=== PATIENT | female | born 1935 | race Caucasian/White ===

== ENCOUNTER 2017-02-27 08:23 | Emergency (ER) | payer MEDICARE, BC ==
[2017-02-27 08:23] VITALS: PULSE 73; BMI 20.1
[2017-02-27 08:41] VITALS: BP 130/49; RESP 18; TEMP 98; O2SAT 100
--- NOTE | 2017-02-27 09:13 | ED PDOC ---
HPI: Back Time Seen by Provider: 02/27/17 08:25 Chief Complaint (Nursing): Back Pain Chief Complaint (Provider): Back pain History Per: Patient History/Exam Limitations: no limitations Onset/Duration Of Symptoms: Days (x3) Current Symptoms Are (Timing): Still Present Additional Complaint(s): Aarti Bardales is a 81 year old female, with a past medical history of CAD, COPD, CHF, rapid A-fib, home oxygen, and back pain, who presents to the emergency department via EMS complaining of lower back pain onset for 3 days. Patient denies falling and reports she strained her back after leaning to mixing picker tender something from the floor. She states she took a tylenol w/ codeine without relief but after taking that medications she developed a pruritic rash in her lower extremities PMD: Kiara Willingham Past Medical History Reviewed: Historical Data, Nursing Documentation, Vital Signs Vital Signs: Last Vital Signs Temp 98 F 02/27/17 08:35 Pulse 65 02/27/17 08:35 Resp 18 02/27/17 08:35 BP 130/49 L 02/27/17 08:35 Pulse Ox 100 02/27/17 08:35 - Medical History PMH: Anxiety, Asthma, Atrial Fibrillation, CAD, CHF, COPD, Depression, Emphysema , HTN, Pneumonia Denies: HIV, Chronic Kidney Disease - Surgical History Surgical History: No Surg Hx - Family History Family History: States: Unknown Family Hx - Social History Ex-Smoker (has not smoked in the last 12 months): Yes Alcohol: None Drugs: Denies - Immunization History Hx Tetanus Toxoid Vaccination: No Hx Influenza Vaccination: No Hx Pneumococcal Vaccination: No - Home Medications Home Medications: Ambulatory Orders Medication Instructions Recorded Bisoprolol [Zebeta] 2.5 mg PO DAILY #0 tab 05/15/14 Pantoprazole [Protonix EC Tab] 40 mg PO DAILY #0 ect 05/15/14 Aspirin [Aspirin EC] 81 mg PO SUMOTUWETHSA 06/02/14 Digoxin [Lanoxin] 0.125 mg PO MOFR 03/01/15 Furosemide [Lasix] 20 mg PO DAILY PRN 03/01/15 diltiaZEM CD [Cardizem CD] 120 mg PO HS 03/01/15 Acetaminophen [Tylenol 325mg tab] 650 mg PO Q6H PRN #50 tab 02/04/16 Cyclobenzaprine [Flexeril] 5 mg PO DAILY #30 tab 02/04/16 Lidocaine [Lidoderm] 1 ea TP DAILY #10 adh..patch 02/04/16 Rosuvastatin Calcium [Crestor] 1 tab PO DAILY 02/04/16 Ibuprofen [Motrin] 600 mg PO Q6H PRN #8 tab 02/27/17 - Allergies Allergies/Adverse Reactions: Allergies Allergy/AdvReac Type Severity Reaction Status Date / Time Penicillins Allergy WHEEZING Verified 02/04/16 11:16 Review of Systems ROS Statement: Except As Marked, All Systems Reviewed And Found Negative Musculoskeletal: Positive for: Back Pain (lower) Skin: Positive for: Rash (pruritic ) Physical Exam - Reviewed Nursing Documentation Reviewed: Yes Vital Signs Reviewed: Yes - Physical Exam Appears: Positive for: Well, Non-toxic, No Acute Distress Head Exam: Positive for: ATRAUMATIC, NORMAL INSPECTION, NORMOCEPHALIC Skin: Positive for: Normal Color, Warm, Rash (diffused but mostly to lower extremity cluster of erythematous non blanching areas. Possibly allergic given onset immediately after taken the Tylenol) Eye Exam: Positive for: EOMI, Normal appearance, PERRL ENT: Positive for: Normal ENT Inspection Neck: Positive for: Normal, Painless ROM, Supple Cardiovascular/Chest: Positive for: Regular Rate, Rhythm. Negative for: Murmur Respiratory: Positive for: Normal Breath Sounds. Negative for: Respiratory Distress Pulses-Dorsalis Pedis (L): 2+ Pulses-Dorsalis Pedis (R): 2+ Gastrointestinal/Abdominal: Positive for: Normal Exam, Bowel Sounds, Soft Back: Negative for: Normal Inspection (Lower back gluteal area tenderness), L CVA Tenderness, R CVA Tenderness, Vertebral Tenderness (No spinal tenderness), Decreased ROM, Muscle Spasm, Other (No hematoma no hip tenderness.) Extremity: Positive for: Normal ROM (Full ) Neurologic/Psych: Positive for: Alert, Oriented - Laboratory Results Result Diagrams: 02/27/17 09:16 02/27/17 09:16 - ECG O2 Sat by Pulse Oximetry: 100 (RA) Pulse Ox Interpretation: Normal Medical Decision Making Medical Decision Making: Initial Impression: Back pain likely muscular sciatica Initial Plan: --Lumbar spine w/o contrast [CT] --Comp Metabolic Panel --CBC w/ differential --reevaluation -will rule out fracture with CAT scan, however will hold tylenol w codeine due to possible allergic reaction. instead gave toradol 1200 -patient feels better and improved, spoke to radiologist and images show no fracture. Patient will be prescribed Motrin for pain and will be discharged home. Pt was advised to stop taking Tylenol with codeine. Follow up with Primary care physician and orthopedic after 2 days. pt agreeable, son agreeable Scribe Attestation: Documented by Kyle Steele, acting as a scribe for Malissa Chen MD Provider Scribe Attestation: All medical record entries made by the Scribe were at my direction and personally dictated by me. I have reviewed the chart and agree that the record accurately reflects my personal performance of the history, physical exam, medical decision making, and the department course for this patient. I have also personally directed, reviewed, and agree with the discharge instructions and disposition. Disposition - Clinical Impression Clinical Impression: Degenerative joint disease of low back - Patient ED Disposition Is Patient to be Admitted: No Counseled Patient/Family Regarding: Studies Performed, Diagnosis, Need For Followup - Disposition Referrals: [facility] [Outside] Lorrie Hartley MD [Staff Provider] - Disposition: Routine/Home Disposition Time: 10:35 Condition: IMPROVED Additional Instructions: follow up with your orthopedist in 1-2 days return to the ED with any worsening or concerning symptoms Prescriptions: Ibuprofen [Motrin] 600 mg PO Q6H PRN #8 tab PRN Reason: Pain, Moderate (4-7) Instructions: Degenerative Disc Disease (ED), Arthritis (ED) Forms: [employer] (Irish)
[2017-02-27 09:20] LABS: BASO # 0.1 K/uL (0.0-0.2); BASO % 0.7 % (0.0-2.0); EOS # 0.1 K/uL (0.0-0.7); EOS % 1.9 % (0.0-4.0); HEMATOCRIT 39.3 % (34.0-47.0); LYMPH # 0.8 K/uL (1.0-4.3); LYMPH % 11.9 % (20.0-40.0); MEAN CELL VOLUME 87.8 fl (81.0-99.0); MEAN CORPUSCULAR HEMOGLOBIN 29.7 pg (27.0-31.0); MEAN CORPUSCULAR HGB CONC 33.8 g/dL (33.0-37.0); MEAN PLATELET VOLUME 7.9 fl (7.2-11.7); MONO # 0.8 K/uL (0.0-0.8); NEUT # 5.1 K/uL (1.8-7.0); NEUT % 74.5 % (50.0-75.0); NRBC % 0.2 % (0.0-0.0); RED CELL DISTRIBUTION WIDTH 14.7 % (11.5-14.5); WHITE BLOOD COUNT 6.9 K/uL (4.8-10.8)
[2017-02-27 09:31] LABS: ALB/GLOB RATIO 1.8 (1.0-2.1); ALKALINE PHOSPHATASE 78 U/L (38-126); ALT/SGPT 30 U/L (9-52); AST/SGOT 29 U/L (14-36); BILIRUBIN,TOTAL 0.8 mg/dl (0.2-1.3); BLOOD UREA NITROGEN 24 mg/dl (7-17); CALCIUM 9.6 mg/dL (8.4-10.2); CARBON DIOXIDE 27 mmol/L (22-30); CHLORIDE 101 mmol/L (98-107); GFR AFRICAN-AMERICAN > 60; GLUCOSE,RANDOM 90 mg/dL (65-105); POTASSIUM 4.4 MMOL/L (3.6-5.0); SODIUM 140 mmol/l (132-148); TOTAL PROTEIN 6.8 G/DL (6.3-8.2)
[2017-02-27 13:00] VITALS: PULSE 70
--- NOTE | 2017-03-01 10:27 | CT ---
PROCEDURE: CT Lumbar Spine without contrast HISTORY: Low-back pain COMPARISON: None. TECHNIQUE: Axial computed tomography images were obtained of the lumbar spine without the use of intravenous con trast. Coronal and sagittal reformatted images were created and reviewed. Radiation dose: Total exam DLP = 327 mGy-cm. This CT exam was performed using one or more of the following dose reduction techniques: Automated ex posure control, adjustment of the mA and/or kV according to patient size, and/or use of iterative rec onstruction technique. FINDINGS: VERTEBRAE: Normal lumbar curvature is appreciated there is no spondylolisthesis identified. Diffuse osteopenia suggests osteoporosis. Mild multilevel lumbar spondylosis appears diffuse. No suspicious lytic or angela stic change. Atherosclerotic abdominal aortic changes are identified. DISCS/SPINAL CANAL/NEURAL FORAMINA: L1-2: A minimal disc bulge is identified without significant stenosis resulting. L2-3: There is a mild generalized disc bulge combining with facet joint arthropathy resulting in l ateral recess delete stenosis symmetrically with remainder of the central canal widely patent. Border line bilateral neural foraminal stenosis is appreciated symmetrically. L3-4: A generalized disc osteophyte complex is [id number] in size but combines with facet ar thropathy to cause mild central canal stenosis and mild bilateral neural foraminal stenoses. L4-5: An additional generalized disc osteophyte complex is appreciated combining with facet arthro ellen to cause [id number] central canal stenosis and mild bilateral neural foraminal stenoses. L5-S1: Generalized disc bulging is appreciate without significant stenosis resulting. Facet arthrop athy appears moderate, symmetric. PARASPINAL SOFT TISSUES: Abdominal aorta atherosclerosis as above. OTHER FINDINGS: None. IMPRESSION: Multilevel degenerate disease appreciate as well as facet arthropathy resulting in central canal sten oses at multiple levels, but seen worst at L4-5 with the central canal is mild to moderately stenosed . No gross disc herniation. MRI is more sensitive in evaluation the intervertebral discs and can be performed if clinically warra nted. Multilevel limited neural foraminal stenoses are identified on a degenerative basis bilaterally .
== END 2017-02-27 12:54 | disposition home or self-care (01) ==
LOC: H.ER 08:23
DX: M51.36 Other intervertebral disc degeneration, lumbar region (principal); M48.06 Spinal stenosis, lumbar region; Z87.891 Personal history of nicotine dependence; Z86.59 Personal history of other mental and behavioral disorders
CPT/HCPCS: 96374; 99283; J1885

== ENCOUNTER 2017-02-28 15:16 | Inpatient (IN) | payer MEDICARE, BC ==
[2017-02-28 15:16] VITALS: BMI 20.1
--- NOTE | 2017-02-28 17:05 | ED PDOC ---
Lower Extremity Pain/Injury Time Seen by Provider: 02/28/17 15:59 Chief Complaint (Nursing): Lower Extremity Problem/Injury Chief Complaint (Provider): rash History Per: Patient Additional Complaint(s): 81-year-old female presents to emergency department for evaluation of rash to right leg that she first noticed 2 days ago. Patient was seen by her primary doctor and sent to ER for further evaluation. Patient denies any known fever or chills. She was seen in ED yesterday for lower back pain and noticed a mild rash to right leg that worsened from yesterday to today. When she followed up with her primary doctor today he advised that she come to ED for further evaluation. PMD: Dr. Willingham Past Medical History Reviewed: Historical Data, Nursing Documentation, Vital Signs Vital Signs: Last Vital Signs Temp 97.6 F 02/28/17 15:24 Pulse 68 02/28/17 15:24 Resp 18 02/28/17 15:24 BP 126/66 02/28/17 15:24 Pulse Ox 96 02/28/17 15:24 - Medical History PMH: Anxiety, Asthma, Atrial Fibrillation, CAD, CHF, COPD, Depression, Emphysema , HTN - Family History Family History: States: No Known Family Hx - Living Arrangements Living Arrangements: With Family - Social History Current smoker - smoking cessation education provided: No Ex-Smoker (has not smoked in the last 12 months): Yes (quit 2 years ago) Alcohol: None Drugs: Denies - Home Medications Home Medications: Ambulatory Orders Medication Instructions Recorded ALPRAZolam [Xanax] 0.25 mg PO DAILY PRN 02/28/17 Aspirin [Ecotrin] 81 mg PO DAILY 02/28/17 Bisoprolol [Zebeta] 2.5 mg PO DAILY 02/28/17 Digoxin [Lanoxin] 0.125 mg PO DAILY 02/28/17 Diltiazem HCl [Diltiazem 24Hr ER] 120 mg PO HS 02/28/17 Pantoprazole Sodium [Protonix] 40 mg PO DAILY 02/28/17 Simvastatin [Zocor] 20 mg PO HS 02/28/17 - Allergies Allergies/Adverse Reactions: Allergies Allergy/AdvReac Type Severity Reaction Status Date / Time Penicillins Allergy WHEEZING Verified 02/04/16 11:16 Wells Criteria for PE - Wells Criteria for Pulmonary Embolism Clinical Signs and Symptoms of DVT: No P.E is #1 Diagnosis, or Equally Likely: No Heart Rate >100: No Immobilization at least 3 days;Surgery previous 4 weeks: No Previous, objectively diagnosed PE or DVT: No Hemoptysis: No Malignancy w/treatment within 6 months, or palliative: No Total Score: 0 Review of Systems ROS Statement: Except As Marked, All Systems Reviewed And Found Negative Constitutional: Negative for: Fever, Chills Cardiovascular: Negative for: Chest Pain Respiratory: Negative for: Cough Gastrointestinal: Negative for: Nausea, Vomiting Skin: Positive for: Rash Neurological: Negative for: Headache, Dizziness Physical Exam - Reviewed Nursing Documentation Reviewed: Yes Vital Signs Reviewed: Yes - Physical Exam Appears: Positive for: Well, Non-toxic, No Acute Distress Skin: Positive for: Rash (Erythematous vesicular rash noted diffusely to the right thigh region both anteriorly and posteriorly, appearance consistent with multi-dermatomal herpes zoster) Eye Exam: Positive for: Normal appearance, EOMI, PERRL Cardiovascular/Chest: Positive for: Regular Rate, Rhythm Respiratory: Positive for: Normal Breath Sounds. Negative for: Respiratory Distress Back: Positive for: Normal Inspection Extremity: Negative for: Pedal Edema Neurologic/Psych: Positive for: Alert, Oriented - Laboratory Results Result Diagrams: 02/28/17 17:45 02/28/17 17:45 - ECG Interpretation Of ECG: A fib 60 bpm, no interval change, reviewed by PA and ED attending O2 Sat by Pulse Oximetry: 96 Pulse Ox Interpretation: Normal - Other Rad Bedside chest X-Ray: Read By Radiologist X-Ray Interpretation: COPD, no infiltrate Medical Decision Making Medical Decision Making: Impression: Multi dermatomal herpes zoster Plan: CBC CMP IVF CXR EKG Case was d/w PMD Dr. Willingham, he states to admit patient and start IV acyclovir. Initial dose ordered. Patient aware of admission and agrees. IV toradol also given for pain. Disposition - Clinical Impression Clinical Impression: Herpes zoster complicated - Patient ED Disposition Is Patient to be Admitted: Yes - Disposition Disposition Time: 13:52 Condition: FAIR - Pt Status Changed To: Hospital Disposition Of: Inpatient - Admit Certification Admit to Inpatient:: After my assessment, the patient will require hospitalization for at least two midnights. This is because of the severity of symptoms shown, intensity of services needed, and/or the medical risk in this patient being treated as an outpatient. - POA Present On Arrival: None Results - Lab Results Lab Results: 02/28/17 02/28/17 02/28/17 18:50 17:45 17:45 WBC 5.9 RBC 4.65 Hgb 13.7 Hct 40.9 MCV 88.1 MCH 29.5 MCHC 33.5 RDW 14.8 H Plt Count 222 MPV 7.9 Neut % (Auto) 70.3 Lymph % (Auto) 15.3 L [place] % (Auto) 11.1 H Eos % (Auto) 2.6 Baso % (Auto) 0.7 Neut # 4.1 Lymph # 0.9 L [place] # 0.6 Eos # 0.2 Baso # 0.0 Sodium 140 Potassium 4.3 Chloride 99 Carbon Dioxide 31 H Anion Gap 14 BUN 29 H Creatinine 1.1 Est GFR ( Amer) 58 Est GFR (Non-Af Amer) 48 Random Glucose 86 Calcium 9.8 Total Bilirubin 1.0 AST 35 ALT 33 Alkaline Phosphatase 79 Total Protein 7.2 Albumin 4.6 Globulin 2.6 Albumin/Globulin Ratio 1.7 Urine Color Yellow Urine Clarity Clear Urine pH 5.0 Ur Specific [place] 1.023 Urine Protein Negative Urine Glucose (UA) Neg Urine Ketones Negative Urine Blood Negative Urine Nitrate Negative Urine Bilirubin Negative Urine Urobilinogen 0.2-1.0 Ur Leukocyte Esterase Neg Urine RBC (Auto) 3 Urine Microscopic WBC 1 Ur Squamous Epith Cells 1 Urine Bacteria Rare
[2017-02-28] MEDS ORDERED: ACYCLOVIR IVPB STA (17:47)
[2017-02-28] MEDS ORDERED: SODIUM CHLORIDE 0.9% IVPB STA (17:47)
[2017-02-28 18:05] LABS: BASO % 0.7 % (0.0-2.0); EOS # 0.2 K/uL (0.0-0.7); EOS % 2.6 % (0.0-4.0); HEMATOCRIT 40.9 % (34.0-47.0); LYMPH # 0.9 K/uL (1.0-4.3); LYMPH % 15.3 % (20.0-40.0); MEAN CELL VOLUME 88.1 fl (81.0-99.0); MEAN CORPUSCULAR HEMOGLOBIN 29.5 pg (27.0-31.0); MEAN CORPUSCULAR HGB CONC 33.5 g/dL (33.0-37.0); MEAN PLATELET VOLUME 7.9 fl (7.2-11.7); MONO # 0.6 K/uL (0.0-0.8); MONO % 11.1 % (0.0-10.0); NEUT # 4.1 K/uL (1.8-7.0); NEUT % 70.3 % (50.0-75.0); NRBC % 0.3 % (0.0-0.0); RED CELL DISTRIBUTION WIDTH 14.8 % (11.5-14.5); WHITE BLOOD COUNT 5.9 K/uL (4.8-10.8)
[2017-02-28 18:16] LABS: ALB/GLOB RATIO 1.7 (1.0-2.1); CALCIUM 9.8 mg/dL (8.4-10.2); POTASSIUM 4.3 MMOL/L (3.6-5.0); TOTAL PROTEIN 7.2 G/DL (6.3-8.2)
[2017-02-28 19:07] LABS: RBC URINE 3 /hpf (0-3); URINE BACTERIA RARE (<OCC); URINE BILIRUBIN NEGATIVE (NEGATIVE); URINE BLOOD NEGATIVE (NEGATIVE); URINE COLOR YELLOW (YELLOW); URINE GLUCOSE (UA) NEG (Normal); URINE KETONE NEGATIVE (NEGATIVE); URINE LEUKOCYTE ESTERASE NEG Leu/uL (Negative); URINE PROTEIN NEGATIVE (NEGATIVE); URINE UROBILINOGEN 0.2-1.0 mg/dL (0.2-1.0); WBC URINE 1 /hpf (0-5)
[2017-03-01] MEDS: diltiaZEM 120 mg/24 Hours CD Cap PO SCH ×2 (00:05→21:15)
[2017-03-01] MEDS ORDERED: Acyclovir 500 MG in Sodium Chloride 0.9% 100 ML IVPB SCH (01:00)
[2017-03-01] MEDS: Acyclovir 500 MG in Sodium Chloride 0.9% 100 ML IVPB SCH ×3 (01:33→20:34)
[2017-03-01] MEDS: Oxycodone/Acetaminophen 5/325 mg Tab PO PRN ×3 (02:34→20:29)
--- NOTE | 2017-03-01 08:49 | RAD ---
HISTORY: clearance COMPARISON: 10/15/2015. FINDINGS: LUNGS: The lungs are hyperinflated and there is peribronchial thickening with chronic changes in both lungs. There is biapical pleural thickening. There is bibasilar scarring. PLEURA: No significant pleural effusion identified, no pneumothorax apparent. CARDIOVASCULAR: There is persistent mild cardiomegaly. Atherosclerotic aortic arch calcifications are present. OSSEOUS STRUCTURES: No significant abnormalities. VISUALIZED UPPER ABDOMEN: Normal. OTHER FINDINGS: None. IMPRESSION: No active pulmonary disease. COPD.
[2017-03-01] MEDS: Pantoprazole 40 mg EC Tab PO SCH (09:09)
--- NOTE | 2017-03-01 19:52 | CP.PCM.CON ---
History of Present Illness - History of Present Illness History of Present Illness: Infectious Dissease Consultation Note- asked to see this patient at the request of for varicella zoster. HPI- Patient is a 81 year old female with pmh of CAD, CHF, COPD, HTN, asthma who was admitted for c/o right hip and lower back and leg pain and rash . Pt. states originally she came to Ed 2 days ago for hip pain and at that time she had small rash like lesion on her right upper thigh region and she was d/c home. She states the next day the rash got much worse and race board attendant to the groin and all the way to almost above her knee and right buttock and was very painful and hence she came back to ED and was admitted for shingles. She denies ever having had shingles before. She also explains that she never received the zostavax. She denies any sick contacts , however , explains the day prior to her symptom she was at her backyard trying to get a old tree from the ground and kind of slipped but she states she was wearing pants and her leg never came into contact directly with any bushes or leaves . denies any fever or chills but states the lesions are very itchy and painful. PMH: Anxiety, Asthma, Atrial Fibrillation, CAD, CHF, COPD, Depression, Emphysema , HTN Review of Systems - Review of Systems Review of Systems: ROS- denies any fever or chills, denies any [place], denies any cough, denies any N/V, denies any ad. pain, denies any cough, chronic dyspnes, denies any chest pain, denies any dysurea, denies any diarrhea. 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 - RENAL Hx Chronic Kidney Disease: No - ENDOCRINE/METABOLIC Hx Endocrine Disorders: No - HEMATOLOGICAL/ONCOLOGICAL Hx Blood Disorders: No - INTEGUMENTARY Hx Dermatological Problems: Yes (shingles) - MUSCULOSKELETAL/RHEUMATOLOGICAL Hx Musculoskeletal Disorders: No Hx Falls: No - GASTROINTESTINAL Hx Gastrointestinal Disorders: No - GENITOURINARY/GYNECOLOGICAL Hx Genitourinary Disorders: No - PSYCHIATRIC Hx Anxiety: Yes Hx Depression: Yes - SURGICAL HISTORY Hx Surgeries: Yes Hx Hysterectomy: Yes - ANESTHESIA Hx Anesthesia: Yes Hx Anesthesia Reactions: No Hx Malignant Hyperthermia: No Meds Allergies/Adverse Reactions: Allergies Allergy/AdvReac Type Severity Reaction Status Date / Time Penicillins Allergy WHEEZING Verified 02/04/16 11:16 - Medications Medications: Current Medications Alprazolam (Xanax) 0.25 mg PO DAILY PRN PRN Reason: Anxiety Stop: 03/07/17 21:50 Last Admin: 03/01/17 14:36 Dose: 0.25 mg Aspirin (Ecotrin) 81 mg PO DAILY [facility] Last Admin: 03/01/17 09:10 Dose: 81 mg Atorvastatin Calcium (Lipitor) 10 mg PO [facility] Last Admin: 03/01/17 00:05 Dose: Not Given Bisoprolol Fumarate (Zebeta) 2.5 mg PO DAILY [facility] Last Admin: 03/01/17 09:08 Dose: 2.5 mg Digoxin (Lanoxin) 0.125 mg PO [facility] Diltiazem HCl (Cardizem Cd) 120 mg PO [facility] Last Admin: 03/01/17 00:05 Dose: Not Given Heparin Sodium (Porcine) (Heparin) 5,000 units SC Q12 [facility] PRN Reason: Protocol Acyclovir 500 mg/ Sodium (Chloride) 100 mls @ 100 mls/hr IVPB Q12 [facility] Last Admin: 03/01/17 09:17 Dose: 100 mls/hr Oxycodone/Acetaminophen (Percocet 5/325 Mg Tab) 1 tab PO Q4 PRN PRN Reason: Pain, moderate (4-7) Stop: 03/03/17 21:50 Last Admin: 03/01/17 14:36 Dose: 1 tab Pantoprazole Sodium (Protonix Ec Tab) 40 mg PO DAILY [facility] Last Admin: 03/01/17 09:09 Dose: 40 mg Physical Exam - Constitutional Appears: No Acute Distress - Head Exam Head Exam: ATRAUMATIC - Eye Exam Eye Exam: EOMI, PERRL - ENT Exam ENT Exam: Normal Oropharynx - Neck Exam Neck exam: Positive for: Full Rom - Respiratory Exam Respiratory Exam: NORMAL BREATHING PATTERN Additional comments: scattered exp wheeze no crackles - Cardiovascular Exam Cardiovascular Exam: RRR, +S1, +S2 - GI/Abdominal Exam GI & Abdominal Exam: Normal Bowel Sounds, Soft Additional comments: NT, ND - Neurological Exam Neurological exam: Alert, Oriented x3 - Skin Additional comments: vesicular rash along right upper lateral and inner thigh and extending to right hip extensive and the inner thigh region vesicular lesions with few areas of ? superimposed infection No discharge Results - Vital Signs Recent Vital Signs: Last Vital Signs Temp 97.5 F L 03/01/17 16:18 Pulse 60 03/01/17 16:18 Resp 21 03/01/17 16:18 BP 120/76 03/01/17 16:18 Pulse Ox 97 03/01/17 16:18 - Labs Result Diagrams: 03/02/17 05:45 03/02/17 05:45 Labs: Laboratory Results - last 72 hr 02/28/17 02/28/17 02/28/17 17:45 17:45 18:50 WBC 5.9 RBC 4.65 Hgb 13.7 Hct 40.9 MCV 88.1 MCH 29.5 MCHC 33.5 RDW 14.8 H Plt Count 222 MPV 7.9 Neut % (Auto) 70.3 Lymph % (Auto) 15.3 L [place] % (Auto) 11.1 H Eos % (Auto) 2.6 Baso % (Auto) 0.7 Neut # 4.1 Lymph # 0.9 L [place] # 0.6 Eos # 0.2 Baso # 0.0 Sodium 140 Potassium 4.3 Chloride 99 Carbon Dioxide 31 H Anion Gap 14 BUN 29 H Creatinine 1.1 Est GFR ( Amer) 58 Est GFR (Non-Af Amer) 48 Random Glucose 86 Calcium 9.8 Total Bilirubin 1.0 AST 35 ALT 33 Alkaline Phosphatase 79 Total Protein 7.2 Albumin 4.6 Globulin 2.6 Albumin/Globulin Ratio 1.7 Urine Color Yellow Urine Clarity Clear Urine pH 5.0 Ur Specific [place] 1.023 Urine Protein Negative Urine Glucose (UA) Neg Urine Ketones Negative Urine Blood Negative Urine Nitrate Negative Urine Bilirubin Negative Urine Urobilinogen 0.2-1.0 Ur Leukocyte Esterase Neg Urine RBC (Auto) 3 Urine Microscopic WBC 1 Ur Squamous Epith Cells 1 Urine Bacteria Rare 03/02/17 03/02/17 05:45 05:45 WBC 4.3 L RBC 4.29 Hgb 12.5 Hct 37.8 MCV 88.0 MCH 29.2 MCHC 33.1 RDW 14.8 H Plt Count 187 MPV Neut % (Auto) Lymph % (Auto) [place] % (Auto) Eos % (Auto) Baso % (Auto) Neut # Lymph # [place] # Eos # Baso # Sodium 139 Potassium 4.9 Chloride 101 Carbon Dioxide 32 H Anion Gap 11 BUN 25 H Creatinine 1.1 Est GFR ( Amer) 58 Est GFR (Non-Af Amer) 48 Random Glucose 98 Calcium 9.2 Total Bilirubin AST ALT Alkaline Phosphatase Total Protein Albumin Globulin Albumin/Globulin Ratio Urine Color Urine Clarity Urine pH Ur Specific [place] Urine Protein Urine Glucose (UA) Urine Ketones Urine Blood Urine Nitrate Urine Bilirubin Urine Urobilinogen Ur Leukocyte Esterase Urine RBC (Auto) Urine Microscopic WBC Ur Squamous Epith Cells Urine Bacteria Microbiology 02/28/17 18:50 Urine,Clean Catch Urine Culture - Preliminary Gram Positive Cocci Assessment & Plan (1) Herpes zoster complicated Status: Acute - Assessment and Plan (Free Text) Assessment: A/P- 81 year old female with CAD, HTN, COPD admitted with extensive right side leg and hip zoster. afebrile normal wbc count ? areas of superimposed bacterial infection on few of the vesicular lesions. plan- advise to continue with IV acyclovir that was initiated by primary doctor for another 1-2 days. can be switched to oral acyclovir after that. advise also to start Iv vancomycin for 1-2 days. Pt. advised to avoid putting any ointment on the lesions. Airborne isolation for now. Pt. verbalizes full understanding of all above and agrees with above plan of care. Thank you for allowing me to take part in the care of this patient
--- NOTE | 2017-03-02 00:09 | CARD ---
APPROVED REPORT EKG Measurement Heart [id number] <Conclusion> Atrial fibrillation Nonspecific ST abnormality Abnormal ECG
[2017-03-02] MEDS: Oxycodone/Acetaminophen 5/325 mg Tab PO PRN ×3 (02:19→18:42)
[2017-03-02 06:19] LABS: HEMATOCRIT 37.8 % (34.0-47.0); MEAN CORPUSCULAR HEMOGLOBIN 29.2 pg (27.0-31.0); MEAN CORPUSCULAR HGB CONC 33.1 g/dL (33.0-37.0); RED CELL DISTRIBUTION WIDTH 14.8 % (11.5-14.5); WHITE BLOOD COUNT 4.3 K/uL (4.8-10.8)
[2017-03-02 06:46] LABS: CALCIUM 9.2 mg/dL (8.4-10.2); POTASSIUM 4.9 MMOL/L (3.6-5.0)
[2017-03-02] MEDS: Digoxin 125 mcg (0.125 mg) Tab PO SCH (09:01)
[2017-03-02] MEDS: Pantoprazole 40 mg EC Tab PO SCH (09:01)
[2017-03-02] MEDS: Acyclovir 500 MG in Sodium Chloride 0.9% 100 ML IVPB SCH ×2 (09:02→21:17)
--- NOTE | 2017-03-02 09:25 | HP ---
HISTORY OF PRESENT ILLNESS: Patient is an 81-year-old female with history of multiple medical problems including chronic obstructive pulmonary disease, hypertension, paroxysmal atrial fibrillation, presented and admitted with multidermatomal herpes zoster. Patient has been complaining of pain in the lower back that radiates to the right lower extremity. Patient visited the emergency room on the day prior to the admission and she was given pain medication. Patient denied to have similar rashes or symptoms suggestive of herpes zoster before. Due to multidermatomal herpes zoster and the patient is elderly, the patient was admitted for intravenous treatment. ALLERGIES: Patient has allergies to PENICILLIN. PAST MEDICAL HISTORY: COPD, hypertension, coronary artery disease. SOCIAL HISTORY: Positive for ex-smoker, no ETOH or substance abuse. FAMILY HISTORY: Noncontributory. PHYSICAL EXAMINATION GENERAL: Patient is found in bed, comfortable, not in any cardiopulmonary distress. VITAL SIGNS: Blood pressure 120/76, temperature 97.5, respiratory rate 20, pulse 60. HEENT: Pupils equal, reactive to light. Normal appearing mucosa of the conjunctivae, oropharynx, and nasal membrane mucosa. NECK: Supple. No JVD. No carotid bruit. No lymph node. No thyromegaly. CHEST AND LUNGS: Bilateral symmetrical expansion. Good air exchange. No rales. No rhonchi. CARDIOVASCULAR: PMI not localized. S1 and S2. No additional sounds. ABDOMEN: Normoactive bowel sounds. No tenderness. No organomegaly. No masses. EXTREMITIES: No cyanosis, no clubbing, no edema. CENTRAL NERVOUS SYSTEM: Alert, awake, and oriented x3. No neurological deficits could be appreciated. SKIN: Patient has multiple vesicular lesions on an erythematous base on the right lower extremity, both upper and lower. ASSESSMENT: 1. Multidermatomal herpes zoster in an 81-year-old female. 2. History of chronic obstructive pulmonary disease. 3. Coronary artery disease. 4. Paroxysmal atrial fibrillation. PLAN: Infectious disease consultation and follow the recommendations. Resume patient's home medications. Continue acyclovir 500 mg q.8 hours. Roxy MD Maulik
[2017-03-02] MEDS ORDERED: Albuterol-Ipratrop 3 mg / 0.5 (3 ml) UD INH STA (09:26)
--- NOTE | 2017-03-02 12:56 | PQF GENQUE ---
This form is a permanent part of the medical record 03/02/17 Dr. Willingham, ER has documented the following information ( History of CHF ) with no mention of this diagnosis in your documentation. Please indicate if you concur with a history of CHF or provide clarification that this diagnosis is not a current condition. If CHF is ruled in please clarify the type and acuity . Clarification of your documentation is requested to better reflect the severity of illness and intensity of treatment of your patient. PHYSICIAN'S RESPONSE [] CHF ruled out [] Acute on chronic CHF [] systolic [] diastolic [] combined [] Chronic CHF [] systolic [] diastolic [] combined [] Other explanation please specify [] Unable to determine Based on your medical judgment of the clinical indicators outlined above please clarify the following: [] Practitioner response [] If unable to determine, please check the box, sign and date. Present On Admission (POA) Indicator: [] Present at the time of admission [] Not present at the time of admission [] Clinically Undetermined In responding to this query, please exercise your independent professional judgment. The fact that a question is asked does not imply that any particular answer is desired or expected. Thank you for your clarification on this documentation. If you have any questions please call:[phone] * Thank you, Priscilla West RN CDMP No, she does not have CHF MTDD
[2017-03-02] MEDS: Albuterol-Ipratrop 3 mg / 0.5 (3 ml) UD INH PRN (19:59)
[2017-03-02] MEDS: diltiaZEM 120 mg/24 Hours CD Cap PO SCH (21:19)
[2017-03-03 07:50] LABS: HEMATOCRIT 38.3 % (34.0-47.0); MEAN CELL VOLUME 87.4 fl (81.0-99.0); MEAN CORPUSCULAR HEMOGLOBIN 29.3 pg (27.0-31.0); MEAN CORPUSCULAR HGB CONC 33.5 g/dL (33.0-37.0); RED CELL DISTRIBUTION WIDTH 15.2 % (11.5-14.5)
[2017-03-03 08:02] LABS: BLOOD UREA NITROGEN 18 mg/dl (7-17); CALCIUM 9.3 mg/dL (8.4-10.2); CARBON DIOXIDE 31 mmol/L (22-30); CHLORIDE 98 mmol/L (98-107); GFR AFRICAN-AMERICAN > 60; GLUCOSE,RANDOM 85 mg/dL (65-105); POTASSIUM 4.4 MMOL/L (3.6-5.0); SODIUM 138 mmol/l (132-148)
[2017-03-03] MEDS: Oxycodone/Acetaminophen 5/325 mg Tab PO PRN ×2 (08:51→19:28)
[2017-03-03] MEDS: Pantoprazole 40 mg EC Tab PO SCH (09:06)
[2017-03-03] MEDS: Acyclovir 500 MG in Sodium Chloride 0.9% 100 ML IVPB SCH ×2 (09:08→21:23)
--- NOTE | 2017-03-03 17:01 | CARD ---
APPROVED REPORT EXAM: Two-dimensional and M-mode echocardiogram with Doppler and color Doppler. Other Information Quality : GoodRhythm : Atrial Fibrillation INDICATION Congestive Heart Failure 2D DIMENSIONS IVSd1.24 (0.7-1.1cm)LVDd3.48 (3.9-5.9cm) LVOT Diameter1.96 (1.8-2.4cm)PWd1.49 (0.7-1.1cm) IVSs1.42 (0.8-1.2cm)LVDs2.31 (2.5-4.0cm) FS (%) 33.6 %PWs1.99 (0.8-1.2cm) LVEF (%)55.0 (>50%) M-Mode DIMENSIONS Left Atrium (MM)5.47 (2.5-4.0cm)IVSd1.25 (0.7-1.1cm) Aortic Root2.75 (2.2-3.7cm)LVDd3.59 (4.0-5.6cm) Aortic Cusp Exc.1.75 (1.5-2.0cm)PWd1.75 (0.7-1.1cm) IVSs1.69 cmFS (%) 46 % LVDs1.94 (2.0-3.8cm)PWs2.06 cm Mitral Valve E/A ratio0.0 TDI E/Lateral E'0.0E/Medial E'0.0 Pulmonary Valve PV Peak Vatjikce30.6cm/s Tricuspid Valve TR Peak [id number]/sRAP [id number] Peak Gr.35mmHg [id number] LEFT VENTRICLE The left ventricle is normal size. Proximal septal thickening is noted. The left ventricular function is normal. The left ventricular ejection fraction is within the normal range. There is normal LV segmental wall motion. A Fib RIGHT VENTRICLE The right ventricle is mildly dilated. There is normal right ventricular wall thickness. The right ventricular systolic function is normal. ATRIA The left atrium is moderately dilated. The right atrium is moderately dilated. AORTIC VALVE The aortic valve is not well visualized. No aortic regurgitation is present. There is no aortic valvular stenosis. MITRAL VALVE The mitral valve is moderately thickened. There is no mitral valve stenosis. Mitral regurgitation is moderate to severe. TRICUSPID VALVE The tricuspid valve is normal in structure There is moderate tricuspid regurgitation. There is mild to moderate pulmonary hypertension. PULMONIC VALVE The pulmonary valve is normal in structure and function. There is no pulmonic valvular regurgitation. GREAT VESSELS The aortic root is normal in size. The IVC is normal in size and collapses >50% with inspiration. PERICARDIAL EFFUSION The pericardium appears normal. <Conclusion> The left ventricle is normal size. Proximal septal thickening is noted. The left ventricular function is normal. The left ventricular ejection fraction is within the normal range. There is normal LV segmental wall motion. Mitral regurgitation is moderate to severe. There is moderate tricuspid regurgitation. There is mild to moderate pulmonary hypertension.
[2017-03-03] MEDS: diltiaZEM 120 mg/24 Hours CD Cap PO SCH (21:20)
--- NOTE | 2017-03-04 01:33 | PN ---
DAILY PROGRESS NOTE DATE: 03/03/2017 SUBJECTIVE: The patient is seen today. She still has pain of the right lower extremity and the patient is on both acyclovir and vancomycin. PHYSICAL EXAMINATION: VITAL SIGNS: Blood pressure 123/76, temperature 98, respiratory rate 18, and pulse 60. HEENT: Pupils equal, reactive to light. Normal-appearing mucosa of the conjunctiva, oropharynx, and nasal membrane mucosa. NECK: Supple. No JVD. No carotid bruit. No lymph node. No thyromegaly. CHEST AND LUNGS: Bilateral symmetrical expansion. Good air exchange. No rales. No rhonchi. CARDIOVASCULAR: PMI not localized. S1 and S2. No additional sounds. ABDOMEN: Normoactive bowel sounds. No tenderness. No organomegaly. No masses. EXTREMITIES: No cyanosis, no clubbing, no edema. CENTRAL NERVOUS SYSTEM: Alert, awake, and oriented x2. No neurological deficits could be appreciated. SKIN: The patient has multidermatomal eczematous maculopapular and vesicular lesions on the gluteal and right upper thigh down to the knee. ASSESSMENT: 1. Multidermatomal herpes zoster, still has active vesicular lesions. 2. Hypertension. 3. Chronic obstructive pulmonary disease. PLAN: Continue current IV acyclovir and vancomycin prophylactically and follow recommendations of IV and continue current isolation. Kiara Willingham MD
[2017-03-04] MEDS ORDERED: Oxycodone/Acetaminophen 5/325 mg Tab PO PRN (01:44)
--- NOTE | 2017-03-04 04:51 | PN ---
DATE: 03/02/2017 SUBJECTIVE: The patient was seen on 03/02/2017. She still has pain along the right lower extremity with rashes and vesicles. PHYSICAL EXAMINATION VITAL SIGNS: Blood pressure was 129/56, temperature 98.7, respiratory rate 20, and pulse 61. HEENT: Pupils equal, reactive to light. Normal-appearing mucosa of the conjunctivae, oropharyngeal and nasal mucosa. NECK: Supple. No JVD. No carotid bruit. No lymph node. No thyromegaly. CHEST AND LUNGS: Bilateral symmetrica expansion. Good air exchange. No rales. No rhonchi. CARDIOVASCULAR: PMI not localized. S1, S2. No additional sounds. ABDOMEN: Normoactive bowel sounds. No tenderness. No organomegaly. No masses. EXTREMITIES: No cyanosis, no clubbing, no edema. CENTRAL NERVOUS SYSTEM: Alert, awake, oriented x2. No neurological deficit could be appreciated. SKIN: The patient has multidermatomal erythema with maculopapular and vesicular lesions across the right lower buttock and right lower gluteal and right upper thigh down to the knee. ASSESSMENT: 1. Multidermatomal herpes zoster. 2. Hypertension. 3. Chronic obstructive pulmonary disease. 4. History of coronary artery disease. PLAN: Continue acyclovir and vancomycin. Follow recommendations of infectious disease store consultant. Continue isolation as the patient still has active vesicular lesions. Kiara Willingham MD
[2017-03-04] MEDS: Pantoprazole 40 mg EC Tab PO SCH (08:26)
[2017-03-04] MEDS: Acyclovir 500 MG in Sodium Chloride 0.9% 100 ML IVPB SCH ×2 (08:42→20:18)
[2017-03-04] MEDS: diltiaZEM 120 mg/24 Hours CD Cap PO SCH (22:26)
--- NOTE | 2017-03-05 01:04 | PN ---
DATE: 03/04/2017 SUBJECTIVE: She is still complaining of pain across the right lower extremity. The patient is afebrile, and she is both on vancomycin and acyclovir. PHYSICAL EXAMINATION VITAL SIGNS: Blood pressure is 142/80, temperature 97.8, respiratory rate 18, and pulse 69. HEENT: Pupils equal, reactive to light. Normal-appearing mucosa of the conjunctivae, oropharynx, and nasal membrane mucosa. NECK: Supple. No JVD. No carotid bruit. No lymph node. No thyromegaly. CHEST AND LUNGS: Bilateral symmetrical expansion. Good air exchange. No rales, no rhonchi. CARDIOVASCULAR: PMI not localized. S1, S2. No additional sounds. ABDOMEN: Normoactive bowel sounds. No tenderness. No organomegaly. No masses. EXTREMITIES: No cyanosis, no clubbing, no edema. There is maculopapular and vesicular rashes across the right lower extremity in the gluteal area as well as on the upper and lower thigh down to the knee. RECYCLING WORKER: Alert, awake, and oriented x3. No neurological deficits could be appreciated. ASSESSMENT: 1. Multidermatome herpes zoster. 2. History of chronic obstructive pulmonary disease. 3. Hypertension. PLAN: Continue current IV acyclovir and vancomycin as per ID. Monitor electrolytes. Pain management. Kiara Willingham MD
[2017-03-05 07:47] VITALS: RESP 20
[2017-03-05] MEDS: Pantoprazole 40 mg EC Tab PO SCH (09:55)
[2017-03-05] MEDS: Digoxin 125 mcg (0.125 mg) Tab PO SCH (09:57)
[2017-03-05] MEDS: Acyclovir 500 MG in Sodium Chloride 0.9% 100 ML IVPB SCH ×2 (09:59→21:37)
[2017-03-05] MEDS: diltiaZEM 120 mg/24 Hours CD Cap PO SCH (21:41)
[2017-03-05] MEDS: Albuterol-Ipratrop 3 mg / 0.5 (3 ml) UD INH PRN (23:03)
[2017-03-06] MEDS: Acyclovir 500 MG in Sodium Chloride 0.9% 100 ML IVPB SCH ×2 (08:32→20:55)
[2017-03-06] MEDS: Pantoprazole 40 mg EC Tab PO SCH (08:32)
[2017-03-06] MEDS: Albuterol-Ipratrop 3 mg / 0.5 (3 ml) UD INH PRN (14:34)
--- NOTE | 2017-03-06 14:44 | CP.PCM.PN ---
Subjective - Date & Time of Evaluation Date of Evaluation: 03/06/17 Time of Evaluation: 13:00 - Subjective Subjective: ID Note- Pt. seen and examined today. pt. in good spirits and deneis any complaints other than slight itching and pain along the right leg dermatome where she has the zoster lesions. denies any fever or chills. Objective - Vital Signs/Intake and Output Vital Signs (last 24 hours): Temp Pulse Resp BP Pulse Ox 98.4 F 76 20 139/82 95 03/06/17 08:13 03/06/17 08:13 03/06/17 08:13 03/06/17 08:13 03/06/17 08:13 - Medications Medications: Current Medications Albuterol/Ipratropium (Duoneb 3 Mg/0.5 Mg (3 Ml) Ud) 3 ml INH RQ6 PRN PRN Reason: Shortness of Breath Last Admin: 03/06/17 14:34 Dose: 3 ml Aspirin (Ecotrin) 81 mg PO DAILY [facility] Last Admin: 03/06/17 08:33 Dose: 81 mg Atorvastatin Calcium (Lipitor) 10 mg PO [facility] Last Admin: 03/05/17 21:37 Dose: 10 mg Bisoprolol Fumarate (Zebeta) 2.5 mg PO DAILY [facility] Last Admin: 03/06/17 08:33 Dose: 2.5 mg Digoxin (Lanoxin) 0.125 mg PO MWF [facility] Last Admin: 03/05/17 09:57 Dose: 0.125 mg Diltiazem HCl (Cardizem Cd) 120 mg PO [facility] Last Admin: 03/05/17 21:41 Dose: 120 mg Diphenhydramine HCl (Benadryl) 25 mg PO Q8 PRN PRN Reason: Itching / Pruritus Last Admin: 03/01/17 20:29 Dose: 25 mg Heparin Sodium (Porcine) (Heparin) 5,000 units SC Q12 [facility] PRN Reason: Protocol Last Admin: 03/06/17 08:33 Dose: 5,000 units Acyclovir 500 mg/ Sodium (Chloride) 100 mls @ 100 mls/hr IVPB Q12 [facility] Last Admin: 03/06/17 08:32 Dose: 100 mls/hr Vancomycin HCl 500 mg/ Sodium (Chloride) 100 mls @ 100 mls/hr IVPB DAILY [facility] Last Admin: 03/06/17 08:32 Dose: 100 mls/hr Pantoprazole Sodium (Protonix Ec Tab) 40 mg PO DAILY [facility] Last Admin: 03/06/17 08:32 Dose: 40 mg - Labs Labs: - Additional Findings Additional findings: - Constitutional Appears: No Acute Distress - Head Exam Head Exam: ATRAUMATIC - Eye Exam Eye Exam: EOMI, PERRL - ENT Exam ENT Exam: Normal Oropharynx - Neck Exam Neck exam: Positive for: Full Rom - Respiratory Exam Respiratory Exam: NORMAL BREATHING PATTERN Additional comments: scattered exp wheeze no crackles - Cardiovascular Exam Cardiovascular Exam: RRR, +S1, +S2 - GI/Abdominal Exam GI & Abdominal Exam: Normal Bowel Sounds, Soft Additional comments: NT, ND - Neurological Exam Neurological exam: Alert, Oriented x3 - Skin Additional comments: vesicular rash along right upper lateral and inner thigh and extending to right hip extensive and the inner thigh region vesicular lesions, however lesions are modtly dry now and crusting over no new lesions no surrounding erythema Laboratory Results - last 72 hr 03/06/17 04:35 Vancomycin Trough 5.9 Microbiology 03/02/17 18:50 Blood-Venous Blood Culture - Preliminary NO GROWTH AFTER 3 DAYS 02/28/17 18:50 Urine,Clean Catch Urine Culture - Final Enterococcus Faecalis Assessment and Plan (1) Herpes zoster complicated Status: Acute - Assessment and Plan (Free Text) Assessment: A/P- 81 year old female with CAD, HTN, COPD admitted with extensive right side leg and hip zoster. clinically better afebrile normal wbc count right leg and buttock herpes zoster lesions ae mostly dry now, no new lesions plan- has been on IV acyclovir since 03/01 along with IV vanco for superimposed mild cellulitis. can d/c both IV vancomycin today. continue with IV acyclovir today and can be switched to oral valtrex tomm to be d/c home tomm. d/c home on valtrex 1000 mg q12 hours for another week at home. patient's son who lives with her to be checked for varicella immunity by his pcp. Pt. verbalizes full understanding of all above and agrees with above plan of care. all above d/w pt's PCP as well.
[2017-03-06] MEDS: diltiaZEM 120 mg/24 Hours CD Cap PO SCH (21:05)
[2017-03-06] MEDS: Oxycodone/Acetaminophen 5/325 mg Tab PO PRN ×2 (21:26→22:39)
--- NOTE | 2017-03-06 23:00 | PN ---
DAILY PROGRESS NOTE DATE: 03/06/2017 SUBJECTIVE: The patient is seen today on 03/06/2017. She is not in any cardiopulmonary distress. The patient still has some pain on the right lower extremity. PHYSICAL EXAMINATION: VITAL SIGNS: Blood pressure 146/81, temperature 98.6, respiratory rate 20, pulse 63. HEENT: Pupils are equal and reactive to light. Normal-appearing mucosa of the conjunctivae, oropharyngeal and nasal membrane mucosa. NECK: Supple. No JVD. No carotid bruit. No lymph node. No thyromegaly. CHEST AND LUNGS: Bilateral symmetrical expansion. Good air exchange. No rales, no rhonchi. CARDIOVASCULAR SYSTEM: PMI not localized. S1, S2. No additional sounds. ABDOMEN: Normoactive bowel sounds. No tenderness. No organomegaly. No masses. EXTREMITIES: No cyanosis, no clubbing, no edema. CENTRAL NERVOUS SYSTEM: Alert, awake, oriented x3. No neurological deficit could be appreciated. ASSESSMENT: 1. Multi-dermatome herpes zoster. 2. Chronic obstructive pulmonary disease. 3. Pulmonary hypertension. 4. Hypertension. PLAN: Discussed the patient's condition with ID business systems consultant. We will continue IV acyclovir for one more day and we will discharge the patient tomorrow on p.o. acyclovir after ID recommendations. Kiara Willingham MD
[2017-03-07 07:26] LABS: HEMATOCRIT 38.4 % (34.0-47.0); MEAN CELL VOLUME 87.5 fl (81.0-99.0); MEAN CORPUSCULAR HEMOGLOBIN 29.2 pg (27.0-31.0); MEAN CORPUSCULAR HGB CONC 33.3 g/dL (33.0-37.0); RED CELL DISTRIBUTION WIDTH 15.4 % (11.5-14.5); WHITE BLOOD COUNT 5.8 K/uL (4.8-10.8)
[2017-03-07 07:38] LABS: BLOOD UREA NITROGEN 19 mg/dl (7-17); CALCIUM 9.4 mg/dL (8.4-10.2); CARBON DIOXIDE 28 mmol/L (22-30); CHLORIDE 100 mmol/L (98-107); GFR AFRICAN-AMERICAN > 60; GLUCOSE,RANDOM 90 mg/dL (65-105); POTASSIUM 4.1 MMOL/L (3.6-5.0); SODIUM 138 mmol/l (132-148)
[2017-03-07 08:29] VITALS: BP 134/76; PULSE 66; TEMP 98.1; O2SAT 95
[2017-03-07] MEDS: Acyclovir 500 MG in Sodium Chloride 0.9% 100 ML IVPB SCH (08:40)
[2017-03-07] MEDS: Digoxin 125 mcg (0.125 mg) Tab PO SCH (08:40)
[2017-03-07 08:41] VITALS: PULSE 66
[2017-03-07] MEDS: Pantoprazole 40 mg EC Tab PO SCH (08:41)
--- NOTE | 2017-03-07 12:29 | CP.PCM.PCO ---
Assessment/Plan - Assessment/Plan Assessment (Free Text): Pt stable. Less pain to RLE, rash mostly dried out. Pt cleared by Dr. Willingham and Justyna for d/c home. Per Dr Jansen, Valtrex 1000mg q12 x 1 week. eRx sent to pt's pharmacy. Pt and RN aware. - Consults Consult Orders: Consultations 03/07/17 09:20 Wound Care [Nursing Referral for Wound Care] Routine Comment: Physician Instructions: Reason For Exam: shingles - Problems Patient Problems: Problem List (Active/Current) Problem Status Onset Code Herpes zoster complicated Acute B02.8
--- NOTE | 2017-03-08 23:37 | DS ---
REASON FOR ADMISSION: This is an 81-year-old female with history of multiple medical problems was admitted for multidermatomal herpes zoster. COURSE OF HOSPITALIZATION: The patient was evaluated in the emergency room and she was admitted into airborne isolation and started on acyclovir. The patient had an ID consult done by Dr. Jansen. The patient was started also on vancomycin due to secondary bacterial infection of the vesicular lesion on the right thigh. The patient responded well to the treatment and she was discharged home to continue Valtrex for another week and to follow with primary care physician and continue physical therapy as an outpatient. FINAL DIAGNOSES: 1. Multidermatomal herpes zoster with secondary bacterial infection. 2. Hypertension. 3. Chronic obstructive pulmonary disease. 4. Coronary artery disease. [facility] MD Maulik
== END 2017-03-07 14:45 | disposition home or self-care (01) | DRG 866 ==
LOC: H.ER 15:16 → H.ERHOLD 17:33 → H.MEDSURG1 22:55
PROVIDERS: ADMIT Internal Medicine; ATTEND Internal Medicine
DX: B02.8 Zoster with other complications (principal); I48.0 Paroxysmal atrial fibrillation; J43.9 Emphysema, unspecified; L03.115 Cellulitis of right lower limb; I25.10 Atherosclerotic heart disease of native coronary artery without angina pectoris; J45.909 Unspecified asthma, uncomplicated; Z88.0 Allergy status to penicillin; I10 Essential (primary) hypertension; F41.9 Anxiety disorder, unspecified; F32.9 Major depressive disorder, single episode, unspecified; Z87.891 Personal history of nicotine dependence

== ENCOUNTER 2017-03-30 10:32 | Emergency (ER) | payer MEDICARE, BC ==
[2017-03-30 10:33] VITALS: PULSE 66
[2017-03-30 10:40] VITALS: BP 121/68; RESP 18; TEMP 97.8; BMI 18.7
--- NOTE | 2017-03-30 11:44 | ED PDOC ---
Lower Extremity Pain/Injury Time Seen by Provider: 03/30/17 11:42 Chief Complaint (Nursing): Lower Extremity Problem/Injury Chief Complaint (Provider): RASH History Per: Patient (81 Y/O FEMALE HERE WITH POST HERPETIC NEURALGIA ONGOING. HAS HAD SHINGLES 3 WEEKS PRIOR RIGHT LEG. HAS BEEN FOLLOWED WITH DR. OWUSU AND WAS STARTED ON NEURONTIN/TYLENOL#3 WITHOUT RELIEF.) Past Medical History Reviewed: Historical Data, Nursing Documentation, Vital Signs Vital Signs: Last Vital Signs Temp 97.8 F 03/30/17 10:39 Pulse 58 L 03/30/17 10:39 Resp 18 03/30/17 10:39 BP 121/68 03/30/17 10:39 Pulse Ox 94 L 03/30/17 10:39 - Medical History PMH: Anxiety, Asthma, Atrial Fibrillation, CAD, CHF, COPD, Depression, Emphysema , HTN, Pneumonia Denies: HIV, Chronic Kidney Disease - Family History Family History: States: Unknown Family Hx - Immunization History Hx Tetanus Toxoid Vaccination: No Hx Influenza Vaccination: No Hx Pneumococcal Vaccination: No - Home Medications Home Medications: Ambulatory Orders Medication Instructions Recorded ALPRAZolam [Xanax] 0.25 mg PO DAILY PRN 02/28/17 Aspirin [Ecotrin] 81 mg PO DAILY 02/28/17 Bisoprolol [Zebeta] 2.5 mg PO DAILY 02/28/17 Digoxin [Lanoxin] 0.125 mg PO DAILY 02/28/17 Diltiazem HCl [Diltiazem 24Hr ER] 120 mg PO HS 02/28/17 Pantoprazole Sodium [Protonix] 40 mg PO DAILY 02/28/17 Simvastatin [Zocor] 20 mg PO HS 02/28/17 Valacyclovir HCl [Valtrex] 1,000 mg PO Q12 #14 tablet 03/07/17 Capsaicin 0.075% [Zostrix-Hp] 0.5 gm TP DAILY PRN #1 tube 03/30/17 Docusate Sodium [Colace] 100 mg PO BID #20 capsule 03/30/17 Tramadol HCl [Ultram] 50 mg PO Q6 PRN #12 tablet 03/30/17 oxyCODONE/Acetaminophen [Percocet 1 ea PO Q6 PRN #8 tab 03/30/17 5/325 mg Tab] - Allergies Allergies/Adverse Reactions: Allergies Allergy/AdvReac Type Severity Reaction Status Date / Time Penicillins Allergy WHEEZING Verified 03/30/17 10:51 Review of Systems ROS Statement: Except As Marked, All Systems Reviewed And Found Negative Physical Exam - Reviewed Nursing Documentation Reviewed: Yes Vital Signs Reviewed: Yes - Physical Exam Appears: Positive for: Well, Non-toxic, No Acute Distress Head Exam: Positive for: ATRAUMATIC, NORMAL INSPECTION, NORMOCEPHALIC Skin: Positive for: Normal Color, Warm, Rash (OLD HEALING ULCERATIVE LESIONS NOTED ALONG RIGHT LOWER EXTREMITY. nO SIGNS OF INFECTION.) Eye Exam: Positive for: EOMI, Normal appearance, PERRL ENT: Positive for: Normal ENT Inspection Neck: Positive for: Normal, Painless ROM Cardiovascular/Chest: Positive for: Regular Rate, Rhythm Respiratory: Positive for: CNT, Normal Breath Sounds Gastrointestinal/Abdominal: Positive for: Normal Exam, Bowel Sounds, Soft Back: Positive for: Normal Inspection Extremity: Positive for: Normal ROM Neurologic/Psych: Positive for: Alert, Oriented - ECG O2 Sat by Pulse Oximetry: 94 - Progress ED Course And Treament: TRAMADOL 50 MG X 1 DOSE MORPHINE 2 MG IM X 1 DOSE ZOFRAN 4 ODT D/W DR. OWUSU. WILL GIVE RX FOR PERCOCET AND F/U WITH HIM NEXT WEEK. Disposition - Clinical Impression Clinical Impression: Post herpetic neuralgia - Patient ED Disposition Is Patient to be Admitted: No - Disposition Disposition: Routine/Home Disposition Time: 13:09 Condition: FAIR Prescriptions: Capsaicin 0.075% [Zostrix-Hp] 0.5 gm TP DAILY PRN #1 tube PRN Reason: Pain, Moderate (4-7) Docusate Sodium [Colace] 100 mg PO BID #20 capsule oxyCODONE/Acetaminophen [Percocet 5/325 mg Tab] 1 ea PO Q6 PRN #8 tab PRN Reason: Pain, Severe (8-10) Tramadol HCl [Ultram] 50 mg PO Q6 PRN #12 tablet PRN Reason: Pain, Moderate (4-7) Instructions: Shingles (ED) Forms: [employer] (Pashto)
[2017-03-30 13:55] VITALS: PULSE 65; O2SAT 97
== END 2017-03-30 13:55 | disposition home or self-care (01) ==
LOC: H.ER 10:32
DX: B02.29 Other postherpetic nervous system involvement (principal)
CPT/HCPCS: 82948; 96372; 99284; J2270

== ENCOUNTER 2017-04-08 06:26 | Emergency (ER) | payer MEDICARE, BC ==
[2017-04-08 06:27] VITALS: PULSE 66
[2017-04-08 06:46] VITALS: BMI 17.2
[2017-04-08 06:49] VITALS: BP 151/100; PULSE 85; RESP 18; TEMP 98.1; O2SAT 94
--- NOTE | 2017-04-08 07:46 | ED PDOC ---
Lower Extremity Pain/Injury Time Seen by Provider: 04/08/17 06:39 Chief Complaint (Nursing): Abnormal Skin Integrity Chief Complaint (Provider): Right Leg Pain History Per: Patient History/Exam Limitations: no limitations Onset/Duration Of Symptoms: Days Current Symptoms Are (Timing): Still Present Additional Complaint(s): Aarti Bardales, an 81 year old female, with a past medical history of shingles presents to the ED with pain in her right leg. The patient reports that she was recently diagnosed with shingles by her PMD and started on gabapentin. She states that initially her dosage was 100mg 3 times a day but was later increased to 5 times a day along with percocet for pain. The patient describes the pain as a burning sensation down the front and side of her right leg. She reports that her pain has been poorly controlled. Patient no longer has rashes. Denies fevers, chills. PMD: Kiara Naidu Past Medical History Reviewed: Historical Data, Nursing Documentation, Vital Signs Vital Signs: Last Vital Signs Temp 98.1 F 04/08/17 07:04 Pulse 85 04/08/17 06:46 Resp 18 04/08/17 06:46 BP 151/100 H 04/08/17 06:46 Pulse Ox 94 L 04/08/17 06:46 - Medical History PMH: Anxiety, Asthma, Atrial Fibrillation, CAD, CHF, COPD, Depression, Emphysema , HTN, Pneumonia Denies: HIV, Chronic Kidney Disease Other PMH: Shingles - Surgical History Surgical History: No Surg Hx - Family History Family History: States: Unknown Family Hx - Immunization History Hx Tetanus Toxoid Vaccination: No Hx Influenza Vaccination: No Hx Pneumococcal Vaccination: No - Home Medications Home Medications: Ambulatory Orders Medication Instructions Recorded ALPRAZolam [Xanax] 0.25 mg PO DAILY PRN 02/28/17 Aspirin [Ecotrin] 81 mg PO DAILY 02/28/17 Bisoprolol [Zebeta] 2.5 mg PO DAILY 02/28/17 Digoxin [Lanoxin] 0.125 mg PO DAILY 02/28/17 Diltiazem HCl [Diltiazem 24Hr ER] 120 mg PO HS 02/28/17 Pantoprazole Sodium [Protonix] 40 mg PO DAILY 02/28/17 Simvastatin [Zocor] 20 mg PO HS 02/28/17 Valacyclovir HCl [Valtrex] 1,000 mg PO Q12 #14 tablet 03/07/17 Capsaicin 0.075% [Zostrix-Hp] 0.5 gm TP DAILY PRN #1 tube 03/30/17 Docusate Sodium [Colace] 100 mg PO BID #20 capsule 03/30/17 Ondansetron ODT [Zofran ODT] 4 mg PO Q8 PRN #10 odt 03/30/17 Tramadol HCl [Ultram] 50 mg PO Q6 PRN #12 tablet 03/30/17 oxyCODONE/Acetaminophen [Percocet 1 ea PO Q6 PRN #8 tab 03/30/17 5/325 mg Tab] Acetaminophen [Tylenol 325mg tab] 650 mg PO Q6H PRN #50 tab 04/08/17 Gabapentin [Neurontin] 300 mg PO TID #30 cap 04/08/17 Naproxen 375 mg PO BID #20 tablet 04/08/17 - Allergies Allergies/Adverse Reactions: Allergies Allergy/AdvReac Type Severity Reaction Status Date / Time Penicillins Allergy WHEEZING Verified 04/08/17 06:45 Review of Systems ROS Statement: Except As Marked, All Systems Reviewed And Found Negative Constitutional: Negative for: Fever, Chills Skin: Positive for: Rash (No rash on right leg only pain) Physical Exam - Reviewed Nursing Documentation Reviewed: Yes Vital Signs Reviewed: Yes - Physical Exam Appears: Positive for: Non-toxic, No Acute Distress Head Exam: Positive for: ATRAUMATIC, NORMAL INSPECTION, NORMOCEPHALIC Skin: Positive for: Normal Color, Warm, Dry. Negative for: Rash (no rash on right leg only pain in the area) Eye Exam: Positive for: Normal appearance, EOMI, PERRL. Negative for: Nystagmus Extremity: Positive for: Normal ROM (Pain in right leg). Negative for: Tenderness, Deformity, Swelling Neurologic/Psych: Positive for: Alert, Oriented, Gait - ECG O2 Sat by Pulse Oximetry: 94 (RA) Pulse Ox Interpretation: Normal - Progress Re-evaluation Time: 08:30 (patient has fallen asleep deeplyl.) Condition: Re-examined, Improved Medical Decision Making Medical Decision Makin Initial Impression 81 y/o female presenting with Shingles neuropathy Initial Plan: * Tylenol 650mg PO * Neurontin 300mg PO * Toradol 30mg IM * Reevaluation 0730 IM Tylenol for pain in ED. Patient will be given a higher dose of gabapentin before discharge. Patient also instructed to follow up with PMD. Scribe Attestation Documented by Natasha Munoz acting as a scribe for Shakira Huerta MD. Provider Attestation All medical record entries made by the Scribe were at my direction and personally dictated by me. I have reviewed the chart and agree that the record accurately reflects my personal performance of the history, physical exam, medical decision making, and the department course for this patient. I have also personally directed, reviewed, and agree with the discharge instructions and disposition. Disposition - Clinical Impression Clinical Impression: Shingles (herpes zoster) polyneuropathy - Patient ED Disposition Is Patient to be Admitted: No Counseled Patient/Family Regarding: Diagnosis, Need For Followup - Disposition Referrals: Kiara Willingham MD [Family Provider] - Disposition: Routine/Home Disposition Time: 08:31 Condition: IMPROVED Prescriptions: Acetaminophen [Tylenol 325mg tab] 650 mg PO Q6H PRN #50 tab PRN Reason: Pain, Mild (1-3) Gabapentin [Neurontin] 300 mg PO TID #30 cap Naproxen 375 mg PO BID #20 tablet Instructions: Shingles (ED) Forms: [facility] (Turkmen) - POA Present On Arrival: None
== END 2017-04-08 09:26 | disposition home or self-care (01) ==
LOC: H.ER 06:26
DX: G62.9 Polyneuropathy, unspecified (principal); B02.9 Zoster without complications; I10 Essential (primary) hypertension; J45.909 Unspecified asthma, uncomplicated; Z86.59 Personal history of other mental and behavioral disorders; J44.9 Chronic obstructive pulmonary disease, unspecified
CPT/HCPCS: 96372; 99282; J1885

== ENCOUNTER 2017-04-14 03:03 | Inpatient (IN) | payer MEDICARE, BC ==
--- NOTE | 2017-04-14 04:08 | ED PDOC ---
HPI: Trauma/Fall - HPI Time Seen by Provider: 04/14/17 03:14 Chief Complaint (Nursing): Trauma Chief Complaint (Provider): Trauma History Per: Patient History/Exam Limitations: no limitations Onset/Duration Of Symptoms: Hrs (prior to arrival) Injury Occurred (Timing): Just Before Arrival Associated Symptoms: Memory Impairment Additional Complaint(s): Aarti Bardales is a 81 year old female, with a past medical history of dementia, shingles, COPD, A-fib, osteoarthritis, and dyslipidemia, who was brought to the emergency department by BLS after son heart his mother making noise and found her next to the bed onto her front side. He presumes she may have rolled out of bed. Patient is unable to recall events but son state it is related to her dementia. Patient denies pain and uncertain how prior the patient had fallen, or if she had LOC. Patient denies any current pain. No further medical complaints. PMD: None provided. Past Medical History Reviewed: Historical Data, Nursing Documentation, Vital Signs Vital Signs: Last Vital Signs Temp 98.0 F 04/14/17 03:14 Pulse 87 04/14/17 03:14 Resp 18 04/14/17 03:14 BP 168/97 H 04/14/17 03:14 Pulse Ox 95 04/14/17 03:14 - Medical History PMH: Anxiety, Asthma, Atrial Fibrillation, CAD, CHF, COPD, Depression, Emphysema , HTN, Pneumonia Denies: HIV, Chronic Kidney Disease - Family History Family History: States: Unknown Family Hx - Social History Current smoker - smoking cessation education provided: No Alcohol: None Drugs: Denies - Immunization History Hx Tetanus Toxoid Vaccination: No Hx Influenza Vaccination: No Hx Pneumococcal Vaccination: No - Home Medications Home Medications: Ambulatory Orders Medication Instructions Recorded Aspirin [Ecotrin] 81 mg PO DAILY 02/28/17 Digoxin [Lanoxin] 0.125 mg PO DAILY 02/28/17 Pantoprazole Sodium [Protonix] 40 mg PO DAILY 02/28/17 Acetaminophen [Tylenol 325mg tab] 650 mg PO Q6H PRN #50 tab 04/08/17 Gabapentin [Neurontin] 300 mg PO TID #30 cap 04/08/17 Naproxen 375 mg PO BID #20 tablet 04/08/17 Diltiazem HCl [Cartia Xt] 120 mg PO DAILY 04/14/17 Nortriptyline [Pamelor] 25 mg PO DAILY 04/14/17 Simvastatin [Zocor] 10 mg PO DAILY 04/14/17 oxyCODONE [oxyCODONE Immediate 10 mg PO HS 04/14/17 Release Tab] - Allergies Allergies/Adverse Reactions: Allergies Allergy/AdvReac Type Severity Reaction Status Date / Time Penicillins Allergy WHEEZING Verified 04/08/17 06:45 Review of Systems ROS Statement: Except As Marked, All Systems Reviewed And Found Negative Constitutional: Positive for: Other (Fall) Physical Exam - Reviewed Nursing Documentation Reviewed: Yes Vital Signs Reviewed: Yes - Physical Exam Head Exam: Positive for: ATRAUMATIC, NORMAL INSPECTION, NORMOCEPHALIC Skin: Positive for: Normal Color, Warm, Dry Eye Exam: Positive for: Normal appearance, EOMI, PERRL ENT: Positive for: Other (dry blood to the tongue) Neck: Positive for: Normal, Painless ROM, Supple Cardiovascular/Chest: Positive for: Regular Rate, Rhythm. Negative for: Murmur Respiratory: Positive for: Normal Breath Sounds. Negative for: Respiratory Distress Gastrointestinal/Abdominal: Positive for: Normal Exam, Bowel Sounds, Soft, Other (hematoma to the left clavicular surface 2cm round. ). Negative for: Tenderness, Guarding, Rebound Back: Positive for: Normal Inspection (No midline tenderness). Negative for: L CVA Tenderness, R CVA Tenderness Extremity: Positive for: Normal ROM (Able to move all 4 extremities), Other ( abrasion to right wrist and forearm, smal skin tear. ) Neurologic/Psych: Positive for: Alert, Oriented (x2 person and place). Negative for: Motor/Sensory Deficits - Laboratory Results Result Diagrams: 04/14/17 04:15 04/14/17 04:15 - ECG O2 Sat by Pulse Oximetry: 95 (RA) Pulse Ox Interpretation: Normal Medical Decision Making Medical Decision Making: Initial Impression: 81 y/0 female s/p fall with likely syncope Initial Plan: --Cervical Spine w/o contrast [CT] --Head w/o contrast [CT] --CMP --Creatine Phosphokinase --Prolactin --Urine dipstick --CBC w/ differential --PTT --PT --Chest one view [RAD] --Adacel 0.5 ml IM --Clavicle left [RAD] --Forearm right [RAD]\ --reevaluation [address] FINDINGS: Brain: Cerebral and cerebellar volume loss. Patchy hypodensity is seen in the periventricular and subcortical white matter. Limited evaluation of medina-white differentiation secondary to motion. There is a radiopaque density lateral to the right globe. The eye lenses are not well seen. Correlation with patient's ophthalmic history is recommended. No hemorrhage. Ventricles: Unremarkable. No ventriculomegaly. Bones/joints: Unremarkable. No acute fracture. Soft tissues: Unremarkable. Vasculature: Vascular calcifications. Sinuses: Unremarkable. No acute sinusitis. Mastoid air cells: Unremarkable. No mastoid effusion. IMPRESSION: No evidence of an acute intracranial hemorrhage, midline shift or mass effect is identified. [address] FINDINGS: Vertebrae: Right sided scoliosis. No acute fracture. Discs/spinal canal/neural foramina: Multilevel degenerative disc disease with multilevel long compressive disc osteophyte herniation. No spinal canal stenosis. Soft tissues: Unremarkable. Lung apices: COPD. Other findings: Facet arthritis. IMPRESSION: There is no acute fracture of cervical spine. -Oldest brother provided additional history, stating that the patient has a history of being Xanax dependent for many years. 3 or 4 days ago they stopped due to concern of dependency. On provider's opinion she likely suffered a withdrawal seizure given presentation of having fallen on the floor and having blood on her tongue. Pt also noticed to be having mild tremors at times. 1mg IV ordered. Pt will be admitted as discussed with Dr. Willingham. Diagnosis include syncope, rule out seizure dependent on Benazepril withdrawal. -Patient's condition is fair. Also the provider was informed that the pt was recently started on Pamelor for postherpetic neuralgia side effect profile does include tardive dyskinesia. Pt has been noticed to have pill rolling behavior as well as lips smacking. Trial of benadryl was ordered. Scribe Attestation: Documented by Kyle Steele, acting as a scribe for Erlin Contreras MD. Provider Scribe Attestation: All medical record entries made by the Scribe were at my direction and personally dictated by me. I have reviewed the chart and agree that the record accurately reflects my personal performance of the history, physical exam, medical decision making, and the department course for this patient. I have also personally directed, reviewed, and agree with the discharge instructions and disposition. Disposition - Clinical Impression Clinical Impression: Drug withdrawal seizure, Tardive dyskinesia, Syncope - Patient ED Disposition Is Patient to be Admitted: Yes Counseled Patient/Family Regarding: Studies Performed, Diagnosis - Disposition Disposition Time: 04:00 Condition: FAIR - Pt Status Changed To: Hospital Disposition Of: Inpatient - Admit Certification Admit to Inpatient:: After my assessment, the patient will require hospitalization for at least two midnights. This is because of the severity of symptoms shown, intensity of services needed, and/or the medical risk in this patient being treated as an outpatient. - POA Present On Arrival: Falls Or Trauma
[2017-04-14 04:33] LABS: BASO # 0.1 K/uL (0.0-0.2); BASO % 0.8 % (0.0-2.0); EOS # 0.2 K/uL (0.0-0.7); EOS % 2.2 % (0.0-4.0); HEMATOCRIT 41.9 % (34.0-47.0); LYMPH # 0.9 K/uL (1.0-4.3); LYMPH % 10.3 % (20.0-40.0); MEAN CELL VOLUME 90.4 fl (81.0-99.0); MEAN CORPUSCULAR HEMOGLOBIN 29.7 pg (27.0-31.0); MEAN CORPUSCULAR HGB CONC 32.8 g/dL (33.0-37.0); MEAN PLATELET VOLUME 8.9 fl (7.2-11.7); MONO # 0.9 K/uL (0.0-0.8); MONO % 10.6 % (0.0-10.0); NEUT # 6.7 K/uL (1.8-7.0); NEUT % 76.1 % (50.0-75.0); NRBC % 0.1 % (0.0-0.0); RED CELL DISTRIBUTION WIDTH 16.1 % (11.5-14.5); WHITE BLOOD COUNT 8.8 K/uL (4.8-10.8)
--- NOTE | 2017-04-14 04:50 | CT ---
EXAM: CT Head Without Intravenous Contrast CLINICAL HISTORY: 81 years old, female; Injury or trauma; Fall; Initial encounter; Blunt trauma (contusions or hematomas); Additional info: Syncope TECHNIQUE: Axial computed tomography images of the head/brain without intravenous contrast. All CT scans at this facility use one or more dose reduction techniques, viz.: automated exposure control; ma/kV adjustment per patient size (including targeted exams where dose is matched to indication; i.e. head); or iterative reconstruction technique. 488 images are submitted. Coronal and sagittal reformatted images were created and reviewed. Axial reformatted images were created and reviewed. COMPARISON: No relevant prior studies available. FINDINGS: Brain: Cerebral and cerebellar volume loss. Patchy hypodensity is seen in the periventricular and subcortical white matter. Limited evaluation of medina-white differentiation secondary to motion. There is a radiopaque density lateral to the right globe. The eye lenses are not well seen. Correlation with patient's ophthalmic history is recommended. No hemorrhage. Ventricles: Unremarkable. No ventriculomegaly. Bones/joints: Unremarkable. No acute fracture. Soft tissues: Unremarkable. Vasculature: Vascular calcifications. Sinuses: Unremarkable. No acute sinusitis. Mastoid air cells: Unremarkable. No mastoid effusion. IMPRESSION: No evidence of an acute intracranial hemorrhage, midline shift or mass effect is identified.
[2017-04-14 04:51] LABS: ALB/GLOB RATIO 1.6 (1.0-2.1); ALKALINE PHOSPHATASE 87 U/L (38-126); ALT/SGPT 35 U/L (9-52); AST/SGOT 62 U/L (14-36); BILIRUBIN,TOTAL 1.2 mg/dl (0.2-1.3); BLOOD UREA NITROGEN 34 mg/dl (7-17); CALCIUM 9.1 mg/dL (8.4-10.2); CARBON DIOXIDE 30 mmol/L (22-30); CHLORIDE 101 mmol/L (98-107); GFR AFRICAN-AMERICAN > 60; GLUCOSE,RANDOM 95 mg/dL (65-105); SODIUM 145 mmol/l (132-148); TOTAL PROTEIN 7.6 G/DL (6.3-8.2)
[2017-04-14 04:52] LABS: PARTIAL THROMBOPLASTIN TIME 34.9 Seconds (25.6-37.1)
--- NOTE | 2017-04-14 04:53 | CT ---
EXAM: CT Cervical Spine Without Intravenous Contrast CLINICAL HISTORY: 81 years old, female; Injury or trauma; Fall; Initial encounter; Blunt trauma; Additional info: Neck injury TECHNIQUE: Axial computed tomography images of the cervical spine without intravenous contrast. All CT scans at this facility use one or more dose reduction techniques, viz.: automated exposure control; ma/kV adjustment per patient size (including targeted exams where dose is matched to indication; i.e. head); or iterative reconstruction technique. 740 images are submitted.Sagittal , axial and coronal MPR reformatted images are submitted in bone and soft tissue windows. COMPARISON: No relevant prior studies available. FINDINGS: Vertebrae: Right sided scoliosis. No acute fracture. Discs/spinal canal/neural foramina: Multilevel degenerative disc disease with multilevel long compressive disc osteophyte herniation. No spinal canal stenosis. Soft tissues: Unremarkable. Lung apices: COPD. Other findings: Facet arthritis. IMPRESSION: There is no acute fracture of cervical spine.
[2017-04-14 04:58] LABS: POTASSIUM 4.7 MMOL/L (3.6-5.0)
[2017-04-14] MEDS ORDERED: DiphenhydrAMINE 50 mg/ml Inj IV STA (05:42)
--- NOTE | 2017-04-14 06:33 | CARD ---
APPROVED REPORT EKG Measurement Heart [id number] <Conclusion> Atrial fibrillation Minimal voltage criteria for LVH, may be normal variant Nonspecific ST and T wave abnormality Abnormal ECG
[2017-04-14] MEDS ORDERED: diltiaZEM 240 mg/24 Hours CD Cap PO SCH (09:00)
--- NOTE | 2017-04-14 09:54 | RAD ---
PROCEDURE: Radiographs of the Right Forearm HISTORY: pain COMPARISON: None available. TECHNIQUE: Frontal and lateral views obtained. FINDINGS: BONES: No fracture or destructive lesion. No periosteal reaction is noted. No radiopaque foreign body is seen. JOINT SPACES: Minor degenerative changes are appreciated in the wrist and elbow. No chondrocalcinosis is seen. OTHER FINDINGS: None. IMPRESSION: Unremarkable radiographs of the right forearm.
--- NOTE | 2017-04-14 09:56 | RAD ---
PROCEDURE: Radiographs of the left clavicle. HISTORY: pain COMPARISON: None. FINDINGS: LEFT CLAVICLE: Two limited views of the left clavicle were performed. Examination is limited due to obliquity of the radiograph. No acromioclavicular joint widening is seen. No fracture is identified. JOINTS: Left acromioclavicular and glenohumeral joints are grossly unremarkable. SOFT TISSUES: Grossly unremarkable. OTHER FINDINGS: None. IMPRESSION: No appreciable left clavicle fracture. Study is limited by osteopenia and obliquity of the radiograph.
--- NOTE | 2017-04-14 09:57 | RAD ---
PROCEDURE: CHEST RADIOGRAPH, 1 VIEW HISTORY: admit COMPARISON: 02/28/2017 FINDINGS: LUNGS: Clear. PLEURA: No pneumothorax or pleural fluid seen. CARDIOVASCULAR: Heart is enlarged but unchanged. There is atherosclerotic change of the aorta. OSSEOUS STRUCTURES: No significant abnormalities. VISUALIZED UPPER ABDOMEN: Normal. OTHER FINDINGS: None. IMPRESSION: No active disease.
[2017-04-14] MEDS ORDERED: Influenza Vaccine 18yr & older 0.5 ML/45 MCG SYR IM ONE (12:07)
[2017-04-14 12:09] VITALS: BMI 18.6
[2017-04-14] MEDS: diltiaZEM 120 mg/24 Hours CD Cap PO SCH (13:30)
[2017-04-14] MEDS: Digoxin 125 mcg (0.125 mg) Tab PO SCH (13:33)
[2017-04-14] MEDS: Pantoprazole 40 mg EC Tab PO SCH (13:34)
[2017-04-14] MEDS: Dextrose 5%/0.45% NS 1,000 ML IV SCH (15:29)
[2017-04-14] MEDS ORDERED: oxyCODONE 10 mg Immediate Release Tab PO SCH (22:00)
[2017-04-15] MEDS: Dextrose 5%/0.45% NS 1,000 ML IV SCH ×2 (01:00→18:21)
[2017-04-15] MEDS: diltiaZEM 120 mg/24 Hours CD Cap PO SCH (09:15)
[2017-04-15] MEDS: Digoxin 125 mcg (0.125 mg) Tab PO SCH (09:16)
[2017-04-15] MEDS: Pantoprazole 40 mg EC Tab PO SCH (09:17)
[2017-04-15] MEDS ORDERED: Thiamine 100 mg/ml Inj IV SCH (16:29)
[2017-04-15] MEDS: Thiamine 100 MG in Sodium Chloride 0.9% 50 ML IV SCH (18:13)
[2017-04-15] MEDS ORDERED: Dextrose 5%/0.45% NS 500 ML IV SCH (18:30)
--- NOTE | 2017-04-16 01:05 | PN ---
DATE: 04/15/2017 SUBJECTIVE: The patient is seen today on 04/15/2017. She is more awake and alert. PHYSICAL EXAMINATION: VITAL SIGNS: Blood pressure 160/50, temperature 98.4, respiratory rate 18, and pulse 60. HEENT: Pupils equal and reactive to light. Normal-appearing mucosa of the conjunctivae, oropharyngeal, and nasal membrane mucosa. NECK: Supple. No JVD. No carotid bruits. No lymph node. No thyromegaly. CHEST AND LUNGS: Bilateral symmetrical expansion. Good air exchange. No rales. No rhonchi. CARDIOVASCULAR SYSTEM: PMI not localized. S1 and S2. No additional sounds. ABDOMEN: Normoactive bowel sounds. No tenderness. No organomegaly. No masses. EXTREMITIES: No cyanosis. No clubbing. No edema. ELECTRIC WIRER: Alert, awake, and oriented x2. No neurological deficits could be appreciated. SKIN: The patient has upper chest wall contusion and she has a bruise on the right lateral tongue. ASSESSMENT: 1. Acute change of mental status. Differential diagnosis, seizure with postictal state versus drug effect. Multiple pain medications' effect. 2. Postherpetic neuralgia. 3. Paroxysmal atrial fibrillation. 4. Hypertension. 5. Chronic obstructive pulmonary disease. PLAN: Continue current IV fluid and we will advance diet as tolerated and we decrease pain medications and use as needed, physical therapy. Kiara Willingham MD
[2017-04-16] MEDS: Thiamine 100 MG in Sodium Chloride 0.9% 50 ML IV SCH (04:35)
[2017-04-16] MEDS: diltiaZEM 120 mg/24 Hours CD Cap PO SCH (08:35)
[2017-04-16] MEDS: Digoxin 125 mcg (0.125 mg) Tab PO SCH (08:36)
[2017-04-16] MEDS: Pantoprazole 40 mg EC Tab PO SCH (08:39)
--- NOTE | 2017-04-16 09:00 | HP ---
HISTORY OF PRESENT ILLNESS: This is an 89-year-old female with a history of multiple medical problems, recently had multidermatomal herpes zoster with severe postherpetic neuralgia. The patient has been on multiple pain medications and neuropathic pain medications. The patient was found on the floor face down by her son. EMS was called and the patient was brought to emergency room where she was found to have multiple facial and upper chest wall contusions and bruising. The patient also was found to have bruised tongue. The patient was thought that she had a seizure and she was brought in a postictal state. The patient was started on IV fluid as well as given Ativan in emergency room, and the patient was admitted to telemetry floor. At the time of physical examination, the patient was lethargic and not able to recognize her son neither myself as her doctor. The patient was not in any respiratory distress at the time of this examination and no history could be given by her. ALLERGIES: PENICILLIN. PAST MEDICAL HISTORY: COPD, hypertension, atrial fibrillation and postherpetic neuralgia. SOCIAL HISTORY: Ex-smoker. No ETOH or substance abuse. FAMILY HISTORY: Not contributory. HOME MEDICATIONS: Oxycodone 10 mg at bedtime, Pamelor 25 mg daily, diltiazem 120 mg daily, simvastatin 10 mg daily, naproxen 375 twice a day, gabapentin 300 mg three times a day, digoxin 0.125 mg daily, aspirin 81 mg daily and pantoprazole 40 mg daily. PHYSICAL EXAMINATION: GENERAL: The patient is on bed comfortable without any cardiopulmonary distress. VITAL SIGNS: Blood pressure 113/60, temperature 97.9, respiratory rate 18 and pulse is 60. HEENT: Pupils equal and reactive to light. Positive multiple bruising and skin contusions of the face and upper chest. NECK: Supple. No JVD. No carotid bruit. No lymph node. No thyromegaly. CHEST AND LUNGS: Bilateral symmetrical expansion. Good air exchange. No rales. No rhonchi. CARDIOVASCULAR SYSTEM: PMI not localized. S1 and S2. No additional sounds. ABDOMEN: Normoactive bowel sounds. No tenderness. No organomegaly. No masses. EXTREMITIES: No cyanosis. No clubbing. No edema. CENTRAL NERVOUS SYSTEM: The patient is confused. The patient is arousable and lethargic and not able to recognize her son or myself at the bedside, but she is able to move all extremities. ASSESSMENT: 1. Acute change of mental status. Differential diagnosis includes seizure with postictal state versus multiple medication effect. 2. Severe postherpetic neuralgia. 3. Hypertension. 4. Chronic obstructive pulmonary disease. 5. Paroxysmal atrial fibrillation, was not able to tolerate anticoagulant before. PLAN: We will give IV fluid, hold any sedative medication at this time and advance medications as the patient will be more awake and tolerated. We will keep the patient n.p.o. until she is able to be awake and able to swallow to prevent any aspiration pneumonia. [facility] MD Maulik
[2017-04-16 10:23] LABS: HEMATOCRIT 40.8 % (34.0-47.0); MEAN CELL VOLUME 89.3 fl (81.0-99.0); MEAN CORPUSCULAR HEMOGLOBIN 29.6 pg (27.0-31.0); MEAN CORPUSCULAR HGB CONC 33.1 g/dL (33.0-37.0); RED CELL DISTRIBUTION WIDTH 15.9 % (11.5-14.5); WHITE BLOOD COUNT 5.5 K/uL (4.8-10.8)
[2017-04-16 10:36] LABS: ALB/GLOB RATIO 1.6 (1.0-2.1); ALKALINE PHOSPHATASE 63 U/L (38-126); ALT/SGPT 34 U/L (9-52); AST/SGOT 37 U/L (14-36); BILIRUBIN,TOTAL 0.9 mg/dl (0.2-1.3); BLOOD UREA NITROGEN 9 mg/dl (7-17); CALCIUM 9.3 mg/dL (8.4-10.2); CARBON DIOXIDE 31 mmol/L (22-30); CHLORIDE 103 mmol/L (98-107); GFR AFRICAN-AMERICAN > 60; GLUCOSE,RANDOM 137 mg/dL (65-105); POTASSIUM 3.6 MMOL/L (3.6-5.0); SODIUM 142 mmol/l (132-148)
--- NOTE | 2017-04-16 13:15 | CP.PCM.CON ---
History of Present Illness - History of Present Illness History of Present Illness: Mrs. Bardales is an 81-year-old woman with a past medical history of dementia, shingles, COPD, A-fib, osteoarthritis, and dyslipidemia, who was brought to the ED after being found on the floor by her son in her room with confusion and complaining of pain to the right shoulder and abdomen. Initially, this morning , the patient was not oriented to place or time. However, when I saw her later in the afternoon, she knew she was in the hospital and knew the year and month. She continued to complain of pain along the region of her back and abdomen where she has shingles. She said that she felt that her "shingles is acting up again". She denied visual changes, headache, nausea, weakness, sensory changes or other associated symptoms. According to the history the patient was previously taking Xanax daily, but has recently been stopped. Review of Systems - Review of Systems All systems: reviewed and no additional remarkable complaints except Past Patient History - Infectious Disease Hx of Infectious Diseases: None - Past Medical History & Family History Past Medical History?: Yes - Past Social History Alcohol: None Drugs: Denies - CARDIAC Hx Atrial Fibrillation: Yes Hx Congestive Heart Failure: Yes Hx Hypertension: Yes - PULMONARY Hx Asthma: Yes Hx Chronic Obstructive Pulmonary Disease (COPD): Yes Hx Emphysema: Yes Hx Pneumonia: Yes - NEUROLOGICAL Hx Neurological Disorder: Yes Hx Dementia: Yes - HEENT Hx HEENT Problems: Yes Other/Comment: uses eye glasses, 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 - RENAL Hx Chronic Kidney Disease: No - ENDOCRINE/METABOLIC Hx Endocrine Disorders: No - HEMATOLOGICAL/ONCOLOGICAL Hx Human Immunodeficiency Virus (HIV): No - INTEGUMENTARY Hx Dermatological Problems: Yes (shingles) - MUSCULOSKELETAL/RHEUMATOLOGICAL Hx Musculoskeletal Disorders: No Hx Falls: Yes - GASTROINTESTINAL Hx Gastrointestinal Disorders: No - GENITOURINARY/GYNECOLOGICAL Hx Genitourinary Disorders: No - PSYCHIATRIC Hx Anxiety: Yes Hx Depression: Yes - SURGICAL HISTORY Hx Surgeries: Yes Hx Hysterectomy: Yes - ANESTHESIA Hx Anesthesia: Yes Hx Anesthesia Reactions: No Hx Malignant Hyperthermia: No Meds Allergies/Adverse Reactions: Allergies Allergy/AdvReac Type Severity Reaction Status Date / Time Penicillins Allergy WHEEZING Verified 04/08/17 06:45 - Medications Medications: Current Medications Acetaminophen (Tylenol 325mg Tab) 650 mg PO Q6H PRN PRN Reason: Pain, Mild (1-3) Alprazolam (Xanax) 0.5 mg PO HS [facility] Last Admin: 04/15/17 23:01 Dose: 0.5 mg Aspirin (Ecotrin) 81 mg PO DAILY [facility] Last Admin: 04/16/17 08:36 Dose: 81 mg Atorvastatin Calcium (Lipitor) 10 mg PO DAILY [facility] Last Admin: 04/16/17 08:37 Dose: 10 mg Digoxin (Lanoxin) 0.125 mg PO DAILY [facility] Last Admin: 04/16/17 08:36 Dose: 0.125 mg Diltiazem HCl (Cardizem Cd) 120 mg PO DAILY [facility] Last Admin: 04/16/17 08:35 Dose: 120 mg Gabapentin (Neurontin) 300 mg PO BID [facility] Last Admin: 04/16/17 08:38 Dose: 300 mg Thiamine HCl 100 mg/ Sodium (Chloride) 51 mls @ 102 mls/hr IV Q12H [facility] Last Admin: 04/16/17 04:35 Dose: 102 mls/hr Naproxen (Naprosyn Tab) 375 mg PO BID [facility] Last Admin: 04/16/17 08:37 Dose: 375 mg Nortriptyline HCl (Pamelor) 25 mg PO DAILY [facility] Last Admin: 04/16/17 08:38 Dose: 25 mg Pantoprazole Sodium (Protonix Ec Tab) 40 mg PO DAILY [facility] Last Admin: 04/16/17 08:39 Dose: 40 mg Physical Exam - Constitutional Appears: Well, Cachectic - Head Exam Head Exam: ATRAUMATIC, NORMAL INSPECTION, NORMOCEPHALIC - Eye Exam Eye Exam: EOMI, Normal appearance, PERRL - ENT Exam ENT Exam: Mucous Membranes Moist, Normal Exam - Neck Exam Neck exam: Positive for: Normal Inspection - Respiratory Exam Respiratory Exam: Clear to Auscultation Bilateral, NORMAL BREATHING PATTERN - Cardiovascular Exam Cardiovascular Exam: REGULAR RHYTHM, +S1, +S2 - GI/Abdominal Exam GI & Abdominal Exam: Normal Bowel Sounds - Rectal Exam Rectal Exam: NORMAL INSPECTION - Extremities Exam Extremities exam: Positive for: normal inspection - Back Exam Back exam: rash noted - Neurological Exam Neurological exam: Alert, CN II-XII Intact, Oriented x3, Reflexes Normal - Expanded Neurological Exam Expanded Patient oriented to: person, place, time Cranial nerves: EOM's Intact: Normal, Facial Sensation: Normal Ataxia: No Cerebellar Function: Finger to Nose: Normal Upper motor neuron: Babinski Sign: Normal Sensory exam: Lower Extremity Light Touch: Normal, Lower Extremity Pin Prick: Normal, Upper Extremity Light Touch: Normal, Upper Extremity Pin Prick: Normal Neuro motor strength exam: Left Upper Extremity: 4, Right Upper Extremity: 4, Left Lower Extremity: 4, Right Lower Extremity: 4 DTR: Achilles Tendon Left: 2+, Achilles Tendon Right: 2+, Bicep Left: 2+, Bicep Right: 2+, Brachioradialis Left: 2+, Brachioradialis Right: 2+, Patellar Left: 2 +, Patellar Right: 2+, Tricep Left: 2+, Tricep Right: 2+ - Psychiatric Exam Psychiatric exam: Normal Affect, Normal Mood - Skin Skin Exam: Dry, Petechiae, Rash, Vesicles Results - Vital Signs Recent Vital Signs: Last Vital Signs Temp 97.9 F 04/16/17 12:46 Pulse 69 04/16/17 12:46 Resp 18 04/16/17 12:46 BP 125/76 04/16/17 12:46 Pulse Ox 97 04/16/17 12:46 - Labs Result Diagrams: 04/16/17 10:00 04/16/17 10:00 Labs: Laboratory Results - last 24 hr 04/16/17 04/16/17 10:00 10:00 WBC 5.5 RBC 4.57 Hgb 13.5 Hct 40.8 MCV 89.3 MCH 29.6 MCHC 33.1 RDW 15.9 H Plt Count 182 Sodium 142 Potassium 3.6 Chloride 103 Carbon Dioxide 31 H Anion Gap 12 BUN 9 Creatinine 0.7 Est GFR ( Amer) > 60 Est GFR (Non-Af Amer) > 60 Random Glucose 137 H Calcium 9.3 Total Bilirubin 0.9 AST 37 H D ALT 34 Alkaline Phosphatase 63 CK-MB (Mass) 2.67 Total Protein 6.0 L Albumin 3.7 Globulin 2.3 Albumin/Globulin Ratio 1.6 - Imaging and Cardiology CT scan - head Status: Image reviewed by me, Report reviewed by me (advanced atrophy in the temporal parietal region bilaterally, without any acute findings. ) Assessment & Plan (1) Syncope Assessment and Plan: Could be a seizure and may be due to medication withdrawal. She has significant pain from shingles and she may have seizures from benzodiazepine withdrawal or another underlying lesion with temporal lobe sclerosis or atrophy due to dementia. I recommend starting the patient on gabapentin for seizure prophylaxis and controlling the neuropathic pain from shingles. We will obtain an MRI of the brain with and without contrast for further seizure evaluation as well as an EEG. Continue conservative management for the other underlying conditions. Thank you for this consultation. Status: Acute Priority: High
[2017-04-16] MEDS ORDERED: Gadodiamide 287 MG/ML VIAL (15ML) IV ONE (17:24)
--- NOTE | 2017-04-16 20:20 | PN ---
DATE: 04/16/2017 SUBJECTIVE: She is more awake and alert and able to eat without any swallowing difficulty. OBJECTIVE: VITAL SIGNS: Blood pressure 125/76, temperature 97.9, respiratory rate 18, and pulse 69. HEENT: Pupils equal, reactive to light. Normal-appearing mucosa of the conjunctivae, oropharynx and nasal membrane mucosa. NECK: Supple. No JVD. No carotid bruit. No lymph node. No thyromegaly. CHEST AND LUNGS: Bilateral symmetrical expansion. Good air exchange. No rales, no rhonchi. CARDIOVASCULAR: PMI not localized. S1, S2. No additional sounds. ABDOMEN: Normoactive bowel sounds. No tenderness. No organomegaly. No masses. EXTREMITIES: No cyanosis, no clubbing, no edema. CENTRAL NERVOUS SYSTEM: Alert, awake, oriented x2. No neurological deficit could be appreciated. SKIN: The patient has contusion on the upper chest. ASSESSMENT: 1. Acute change of mental status. Differential diagnoses include seizure with postictal state versus multiple drug side effects. 2. Chronic obstructive pulmonary disease. 3. Paroxysmal atrial fibrillation. 4. Hypertension. 5. Post herpetic neuralgia. PLAN: We will advance medicine as tolerated, physical therapy, and plan to discharge to subacute rehabilitation. Kiara Willingham MD
[2017-04-17 06:40] LABS: HEMATOCRIT 43.3 % (34.0-47.0); MEAN CELL VOLUME 89.3 fl (81.0-99.0); MEAN CORPUSCULAR HEMOGLOBIN 29.8 pg (27.0-31.0); MEAN CORPUSCULAR HGB CONC 33.4 g/dL (33.0-37.0); RED CELL DISTRIBUTION WIDTH 15.7 % (11.5-14.5); WHITE BLOOD COUNT 7.1 K/uL (4.8-10.8)
[2017-04-17 06:56] LABS: BLOOD UREA NITROGEN 10 mg/dl (7-17); CALCIUM 9.8 mg/dL (8.4-10.2); CARBON DIOXIDE 33 mmol/L (22-30); CHLORIDE 104 mmol/L (98-107); GFR AFRICAN-AMERICAN > 60; GLUCOSE,RANDOM 92 mg/dL (65-105); POTASSIUM 3.8 MMOL/L (3.6-5.0); SODIUM 146 mmol/l (132-148)
--- NOTE | 2017-04-17 08:49 | MRI ---
PROCEDURE: MRI BRAIN WITH AND WITHOUT CONTRAST HISTORY: syncope COMPARISON: Noncontrast head CT from 04/14/2017 TECHNIQUE: Multiplanar, multisequence MR images of the brain were obtained with and without intravenous contrast enhancement. FINDINGS: HEMORRHAGE: None DWI: No evidence of an acute or early subacute infarction. BRAIN PARENCHYMA: There are moderate chronic microangiopathic changes. There is no mass, mass effect or abnormal extra-axial fluid collection. The midline sagittal structures are normal the ENHANCEMENT: No abnormal intracranial enhancement. VENTRICLES: There is moderate age-related global parenchymal volume loss and proportionate enlargement of the ventricles and cortical sulci. CRANIUM: There is normal bone marrow signal pattern. ORBITS: Grossly unremarkable. PARANASAL SINUSES/MASTOIDS: Clear VASCULAR SYSTEM: There are normal signal voids in the larger intracranial arteries. OTHER FINDINGS: None . IMPRESSION: No acute intracranial abnormality. Moderate chronic microangiopathic changes and moderate age-related global parenchymal volume loss. A preliminary report was provided by [employer] [facility].
[2017-04-17] MEDS: Digoxin 125 mcg (0.125 mg) Tab PO SCH (09:15)
[2017-04-17] MEDS: Pantoprazole 40 mg EC Tab PO SCH (09:15)
[2017-04-17] MEDS: diltiaZEM 120 mg/24 Hours CD Cap PO SCH (09:16)
--- NOTE | 2017-04-17 10:40 | CP.PCM.PN ---
Subjective - Date & Time of Evaluation Date of Evaluation: 04/17/17 Time of Evaluation: 10:37 - Subjective Subjective: Ms. Bardales was seen and examined at the bedside. She is alert, with episode of confusion. She is on telesitter for patient safety. There is no untoward events overnight. Objective - Vital Signs/Intake and Output Vital Signs (last 24 hours): Temp Pulse Resp BP Pulse Ox 98.3 F 77 18 149/77 97 04/17/17 08:02 04/17/17 09:16 04/17/17 08:02 04/17/17 09:16 04/17/17 08:02 - Medications Medications: Current Medications Acetaminophen (Tylenol 325mg Tab) 650 mg PO Q6H PRN PRN Reason: Pain, Mild (1-3) Alprazolam (Xanax) 0.5 mg PO HS [facility] Last Admin: 04/16/17 21:20 Dose: 0.5 mg Aspirin (Ecotrin) 81 mg PO DAILY [facility] Last Admin: 04/17/17 09:15 Dose: 81 mg Atorvastatin Calcium (Lipitor) 10 mg PO DAILY [facility] Last Admin: 04/17/17 09:15 Dose: 10 mg Digoxin (Lanoxin) 0.125 mg PO DAILY [facility] Last Admin: 04/17/17 09:15 Dose: 0.125 mg Diltiazem HCl (Cardizem Cd) 120 mg PO DAILY [facility] Last Admin: 04/17/17 09:16 Dose: 120 mg Gabapentin (Neurontin) 300 mg PO TID [facility] Last Admin: 04/17/17 09:15 Dose: 300 mg Nortriptyline HCl (Pamelor) 25 mg PO DAILY [facility] Last Admin: 04/17/17 09:15 Dose: 25 mg Pantoprazole Sodium (Protonix Ec Tab) 40 mg PO DAILY [facility] Last Admin: 04/17/17 09:15 Dose: 40 mg Thiamine HCl (Vitamin B1 Tab) 100 mg PO DAILY [facility] Last Admin: 04/17/17 09:15 Dose: 100 mg - Labs Labs: 04/17/17 05:40 04/17/17 05:40 PT 11.5 Seconds (9.8-13.1) 04/14/17 04:15 INR 1.0 (0.9-1.2) 04/14/17 04:15 APTT 34.9 Seconds (25.6-37.1) 04/14/17 04:15 - Constitutional Appears: No Acute Distress, Confused - Head Exam Head Exam: ATRAUMATIC, NORMAL INSPECTION, NORMOCEPHALIC - Neurological Exam Neurological Exam: Alert, Awake Neuro motor strength exam: Left Upper Extremity: 4, Right Upper Extremity: 5, Left Lower Extremity: 5, Right Lower Extremity: 5 Additional comments: She is able to follow commands, but unable to raise left upper extremity due to recent fall. Sensation intact. Assessment and Plan (1) Syncope Assessment & Plan: Case discussed with Dr. Dunlap, continue all current medical, physical, and occupational regimen. There is no new recommendation from neurology. Status: Acute
--- NOTE | 2017-04-17 12:08 | PCM.EEG ---
Electroencephalogram Report - Electroencephalogram Report Procedure Date: 04/16/17 Interpretation: Indication: Altered mental status. Medications were reviewed. This is an awake and drowsy EEG. Technical: This is a digitally recorded electroencephalogram. The international 10-20 electrode placement system is used for scalp electrode placement. Eighteen channels of scalp EEG are recorded Another channel was used for for ECG. The data are stored digitally and reviewed in reformatted montages for optimal display. Background: 9 to 10 hertz alpha activity was seen. Maximal over the posterior head region. Diffuse Abnormality: Mixed diffuse theta and delta activity was seen. Increased beta activity was seen intermittently. Focal abnormality: Intermittent focal slowing was seen. Periodic lateralized discharge was seen. Mainly over the Right temporal area. Impression: This EEG is abnormal. Epileptiform discharge was seen. This can represent a potential seizure focus. Some focal slowing was seen, suggestive of a focal abnormality. Clinical correlation is needed.
--- NOTE | 2017-04-17 12:21 | PQF GENQUE ---
Dr. Willingham, In agreement with the following chart documentation: BMI 18.6 ( 5ft 5 in 112 lb);if yes: please include the BMI in your progress note OR: Unable to determine OR: Other explanation of clinical finding Neurology consult: PE:Cachectic This form is a permanent part of the medical record Clarification of your documentation is requested to better reflect the severity of illness and intensity of treatment of your patient. Indicators present [] Specify: [] [] Specify: [] [] Specify: [] [] Specify: [] Location in the medical record that reflects the above clinical findings: [] Treatment Provided: [] PHYSICIAN'S RESPONSE Based on your medical judgment of the clinical indicators outlined above please clarify the following: [] Practitioner response [] If unable to determine, please check the box, sign and date. Present On Admission (POA) Indicator: [] Present at the time of admission [] Not present at the time of admission [] Clinically Undetermined In responding to this query, please exercise your independent professional judgment. The fact that a question is asked does not imply that any particular answer is desired or expected. Thank you for your clarification on this documentation. If you have any questions please call. * Thank you, Stephanie Mansfield RN ext. #[phone]: Priscilla West RN MTDD
[2017-04-17] MEDS: Lidocaine 5% Patch TD SCH (14:56)
--- NOTE | 2017-04-18 02:06 | PN ---
DATE: 04/17/2017 SUBJECTIVE: The patient is seen today 04/17/2017. She has still pain on the left thigh. PHYSICAL EXAMINATION VITAL SIGNS: Blood pressure is 149/77, temperature 98.3, respiratory rate 18 and pulse 77. HEENT: Pupils equal and reactive to light. Normal-appearing mucosa of the conjunctivae, oropharynx and nasal membrane mucosa. NECK: Supple. No JVD. No carotid bruit. No lymph node. No thyromegaly. CHEST AND LUNGS: Bilateral symmetrical expansion. Good air exchange. No rales. No rhonchi. CARDIOVASCULAR SYSTEM: PMI not localized. S1, S2. No additional sounds. ABDOMEN: Normoactive bowel sounds. No tenderness. No organomegaly. No masses. EXTREMITIES: No cyanosis. No clubbing. No edema. CENTRAL NERVOUS SYSTEM: Alert, awake, and oriented x3. No neurological deficits could be appreciated. ASSESSMENT: 1. Acute change of mental status. Differential diagnosis include seizure with postictal versus multiple drug/pain medications effect. 2. Hypertension. 3. Chronic obstructive pulmonary disease. 4. Paroxysmal atrial fibrillation. PLAN: We will start patient on Lidoderm patch for postherpetic neuralgia and continue current medications, physical therapy. Plan to discharge to subacute rehabilitation. Kiara Willingham MD
--- NOTE | 2017-04-18 08:42 | CP.PCM.PN ---
Subjective - Date & Time of Evaluation Date of Evaluation: 04/18/17 Time of Evaluation: 08:39 - Subjective Subjective: Ms. Bardales was seen and examined at the bedside. She is alert with episode of confusion. She is able to answer question appropriately. She denies any headache , dizziness, lightheadedness, nausea, or vomiting.She is on telesitter for patient safety. There was no untoward events overnight. Objective - Vital Signs/Intake and Output Vital Signs (last 24 hours): Temp Pulse Resp BP Pulse Ox 97.7 F 83 19 125/74 95 04/18/17 00:53 04/18/17 00:53 04/18/17 00:53 04/18/17 00:53 04/18/17 00:53 - Medications Medications: Current Medications Acetaminophen (Tylenol 325mg Tab) 650 mg PO Q6H PRN PRN Reason: Pain, Mild (1-3) Alprazolam (Xanax) 0.5 mg PO HS [facility] Last Admin: 04/17/17 21:25 Dose: 0.5 mg Aspirin (Ecotrin) 81 mg PO DAILY [facility] Last Admin: 04/17/17 09:15 Dose: 81 mg Atorvastatin Calcium (Lipitor) 10 mg PO DAILY [facility] Last Admin: 04/17/17 09:15 Dose: 10 mg Carbamazepine (Tegretol-Xr) 100 mg PO Q12 [facility] Last Admin: 04/17/17 21:19 Dose: 100 mg Digoxin (Lanoxin) 0.125 mg PO DAILY [facility] Last Admin: 04/17/17 09:15 Dose: 0.125 mg Diltiazem HCl (Cardizem Cd) 120 mg PO DAILY [facility] Last Admin: 04/17/17 09:16 Dose: 120 mg Gabapentin (Neurontin) 300 mg PO TID [facility] Last Admin: 04/17/17 16:15 Dose: 300 mg Heparin Sodium (Porcine) (Heparin) 5,000 units SC Q12 [facility] PRN Reason: Protocol Last Admin: 04/17/17 21:21 Dose: 5,000 units Lidocaine (Lidoderm) 1 ea TD DAILY [facility] Last Admin: 04/17/17 14:56 Dose: 1 ea Nortriptyline HCl (Pamelor) 25 mg PO DAILY [facility] Last Admin: 04/17/17 09:15 Dose: 25 mg Pantoprazole Sodium (Protonix Ec Tab) 40 mg PO DAILY [facility] Last Admin: 04/17/17 09:15 Dose: 40 mg Thiamine HCl (Vitamin B1 Tab) 100 mg PO DAILY [facility] Last Admin: 04/17/17 09:15 Dose: 100 mg - Labs Labs: 04/17/17 05:40 04/17/17 05:40 PT 11.5 Seconds (9.8-13.1) 04/14/17 04:15 INR 1.0 (0.9-1.2) 04/14/17 04:15 APTT 34.9 Seconds (25.6-37.1) 04/14/17 04:15 - Constitutional Appears: No Acute Distress - Head Exam Head Exam: ATRAUMATIC, NORMAL INSPECTION, NORMOCEPHALIC - Neurological Exam Neurological Exam: Alert, Awake Neuro motor strength exam: Left Upper Extremity: 5, Right Upper Extremity: 5, Left Lower Extremity: 5, Right Lower Extremity: 5 Additional comments: She able to follow commands such as raising her extremities and finger to nose test. Sensation remains intact. Assessment and Plan (1) Syncope Assessment & Plan: Case discussed with Dr. Dunlap, with result of EEG patient was started on Tegretol 100 mg PO Q 12 hours. Continue all current medical, physical, and occupational therapies. Status: Acute
[2017-04-18] MEDS: Lidocaine 5% Patch TD SCH (09:23)
[2017-04-18] MEDS: Pantoprazole 40 mg EC Tab PO SCH (09:25)
[2017-04-18] MEDS: diltiaZEM 120 mg/24 Hours CD Cap PO SCH (09:26)
[2017-04-18] MEDS: Digoxin 125 mcg (0.125 mg) Tab PO SCH (09:27)
--- NOTE | 2017-04-18 22:56 | PN ---
DATE: 04/18/2017 SUBJECTIVE: The patient is seen today. She is more alert and awake. She still has [id number] pain in the right upper thigh and gluteal area. PHYSICAL EXAMINATION: VITAL SIGNS: Blood pressure 134/77, temperature 97.7, respiratory rate 20, and pulse 17. HEENT: Pupils equal and reactive to light. Normal-appearing mucosa of the conjunctivae, oropharynx, and nasal membrane mucosa. NECK: Supple. No JVD. No carotid bruit. No lymph node. No thyromegaly. CHEST AND LUNGS: Bilateral symmetrical expansion. Good air exchange. No rales. No rhonchi. CARDIOVASCULAR SYSTEM: PMI Not localized. S1, S2. No additional sounds. ABDOMEN: Normoactive bowel sounds. No tenderness. No organomegaly. No masses. EXTREMITIES: No cyanosis. No clubbing. No edema. CENTRAL NERVOUS SYSTEM: Alert, awake, and oriented x2. No neurological deficits could be appreciated. ASSESSMENT: 1. Acute change of mental status. Differential diagnosis, seizure with postictal state versus pain medication effect. 2. Postherpetic neuralgia. 3. Chronic obstructive pulmonary disease. 4. Paroxysmal atrial fibrillation. PLAN: Continue current pain management, physical therapy, and plan to discharge to subacute rehabilitation. Kiara Willingham MD
--- NOTE | 2017-04-19 04:50 | CP.PCM.PCO ---
Summary - Summary of Event Summary of Event: S: fall after standing and getting out of bed, on tele sitter, witnessed fall by tele sitter. Found by nurse to be on right side nearby bed O: VS reviewed, normotensive General: NAD HEENT: atraumatic Ext: no swelling/edema MSK: moving all ext, motor/sensation grossly intact, no TTP along right hip, pt didn't want provider to inspect/palpate back Skin: no new hematoma/ecchymosis A/P: 81yo F with extensive PMHx admitted for syncope/fall dx with new onset seizure -MRI brain, CT head reviewed -no xray for now given no acute pain and clinical exam -tylenol 650mg PO x1 -neuro checks q4 till evaluated later in the day by primary team and/or neuro -hold heparin for now and to be restarted by primary team -pt on multiple meds that may contribute to fall -c/w with tele sitter
[2017-04-19 06:22] LABS: HEMATOCRIT 41.4 % (34.0-47.0); MEAN CELL VOLUME 89.5 fl (81.0-99.0); MEAN CORPUSCULAR HEMOGLOBIN 29.2 pg (27.0-31.0); MEAN CORPUSCULAR HGB CONC 32.6 g/dL (33.0-37.0); WHITE BLOOD COUNT 6.2 K/uL (4.8-10.8)
[2017-04-19 06:38] LABS: BLOOD UREA NITROGEN 19 mg/dl (7-17); CALCIUM 8.9 mg/dL (8.4-10.2); CARBON DIOXIDE 31 mmol/L (22-30); CHLORIDE 100 mmol/L (98-107); GFR AFRICAN-AMERICAN > 60; GLUCOSE,RANDOM 89 mg/dL (65-105); POTASSIUM 3.9 MMOL/L (3.6-5.0); SODIUM 140 mmol/l (132-148)
[2017-04-19 08:42] VITALS: PULSE 74; RESP 20; TEMP 97.9; O2SAT 100
[2017-04-19] MEDS: diltiaZEM 120 mg/24 Hours CD Cap PO SCH (09:46)
[2017-04-19] MEDS: Digoxin 125 mcg (0.125 mg) Tab PO SCH (09:47)
[2017-04-19] MEDS: Lidocaine 5% Patch TD SCH (09:48)
[2017-04-19] MEDS: Pantoprazole 40 mg EC Tab PO SCH (09:49)
[2017-04-19 09:52] VITALS: BP 134/76; PULSE 74
--- NOTE | 2017-04-19 11:17 | CP.PCM.PN ---
Subjective - Date & Time of Evaluation Date of Evaluation: 04/19/17 Time of Evaluation: 11:12 - Subjective Subjective: Ms. Bardales was seen and examined at the bedside. She is more alert today in comparison from previous examination. She is able to verbalize place, person, but not time. She also claims of slipping last night. At present, she is able to move all her extremities spontaneously. She is still complaining of pain in her right leg ( location of her recent shingles episode). She denies any headache, dizziness, nausea, vomiting, or numbness. Objective - Vital Signs/Intake and Output Vital Signs (last 24 hours): Temp Pulse Resp BP Pulse Ox 97.9 F 74 20 134/76 100 04/19/17 08:40 04/19/17 09:46 04/19/17 08:40 04/19/17 09:46 04/19/17 08:40 - Medications Medications: Current Medications Acetaminophen (Tylenol 325mg Tab) 650 mg PO Q6H PRN PRN Reason: Pain, Mild (1-3) Last Admin: 04/19/17 05:00 Dose: 650 mg Alprazolam (Xanax) 0.5 mg PO HS [facility] Last Admin: 04/18/17 21:49 Dose: 0.5 mg Aspirin (Ecotrin) 81 mg PO DAILY [facility] Last Admin: 04/19/17 09:47 Dose: 81 mg Atorvastatin Calcium (Lipitor) 10 mg PO DAILY [facility] Last Admin: 04/19/17 09:48 Dose: 10 mg Carbamazepine (Tegretol-Xr) 100 mg PO Q12 [facility] Last Admin: 04/19/17 09:50 Dose: 100 mg Digoxin (Lanoxin) 0.125 mg PO DAILY [facility] Last Admin: 04/19/17 09:47 Dose: 0.125 mg Diltiazem HCl (Cardizem Cd) 120 mg PO DAILY [facility] Last Admin: 04/19/17 09:46 Dose: 120 mg Gabapentin (Neurontin) 300 mg PO TID [facility] Last Admin: 04/19/17 09:49 Dose: 300 mg Heparin Sodium (Porcine) (Heparin) 5,000 units SC Q12 [facility] PRN Reason: Protocol Last Admin: 04/18/17 21:51 Dose: 5,000 units Lidocaine (Lidoderm) 1 ea TD DAILY [facility] Last Admin: 04/19/17 09:48 Dose: 1 ea Nortriptyline HCl (Pamelor) 25 mg PO DAILY [facility] Last Admin: 04/19/17 09:49 Dose: 25 mg Pantoprazole Sodium (Protonix Ec Tab) 40 mg PO DAILY [facility] Last Admin: 04/19/17 09:49 Dose: 40 mg Thiamine HCl (Vitamin B1 Tab) 100 mg PO DAILY [facility] Last Admin: 04/19/17 09:50 Dose: 100 mg - Labs Labs: 04/19/17 06:10 04/19/17 06:10 PT 11.5 Seconds (9.8-13.1) 04/14/17 04:15 INR 1.0 (0.9-1.2) 04/14/17 04:15 APTT 34.9 Seconds (25.6-37.1) 04/14/17 04:15 - Constitutional Appears: No Acute Distress - Head Exam Head Exam: ATRAUMATIC, NORMAL INSPECTION, NORMOCEPHALIC - Neurological Exam Neurological Exam: Alert, Awake Neuro motor strength exam: Left Upper Extremity: 5, Right Upper Extremity: 5, Left Lower Extremity: 4, Right Lower Extremity: 5 Additional comments: Neurological improved from previous examination. She is able to verbalize place and person. She is able to follow commands. Sensation remains intact. Assessment and Plan (1) Syncope Assessment & Plan: Case discussed with Dr. Dunlap, continue all current medical, physical, and occupational therapies. Change tegretol 100 mg PO am and 200 mg PO at bedtime. Status: Acute
[2017-04-20] MEDS ORDERED: carBAMazepine Chew Tab 100 MG Chew Tab PO SCH ×2 (09:00)
--- NOTE | 2017-04-20 10:47 | PQF GENQUE ---
Dr. Willingham pt was admitted with altered mental status. If known please clarify source or cause. This form is a permanent part of the medical record Clarification of your documentation is requested to better reflect the severity of illness and intensity of treatment of your patient. Indicators present [] Specify: [] [] Specify: [] [] Specify: [] [] Specify: [] Location in the medical record that reflects the above clinical findings: [] Treatment Provided: [] PHYSICIAN'S RESPONSE Based on your medical judgment of the clinical indicators outlined above please clarify the following: [] Practitioner response [] If unable to determine, please check the box, sign and date. Present On Admission (POA) Indicator: [] Present at the time of admission [] Not present at the time of admission [] Clinically Undetermined In responding to this query, please exercise your independent professional judgment. The fact that a question is asked does not imply that any particular answer is desired or expected. Thank you for your clarification on this documentation. If you have any questions please call:[ ] * Thank you, [ ]Molly PARK Coder AUREA
== END 2017-04-19 13:37 | DRG 948 ==
LOC: H.ER 03:03 → H.ERHOLD 04:33 → H.TEL 06:48 → OBSVTOIN 04-16 06:37 → H.MEDSURG1 04-16 18:27
PROVIDERS: ADMIT Internal Medicine; ATTEND Internal Medicine
PROC: 3E0234Z Introduction of Serum, Toxoid and Vaccine into Muscle, Percutaneous Approach (ICD-10-PCS; principal; 2017-04-16)
DX: R41.82 Altered mental status, unspecified (principal); R64 Cachexia; I11.0 Hypertensive heart disease with heart failure; F03.90 Unspecified dementia, unspecified severity, without behavioral disturbance, psychotic disturbance, mood disturbance, and anxiety; I50.9 Heart failure, unspecified; B02.29 Other postherpetic nervous system involvement; Z68.1 Body mass index [BMI] 19.9 or less, adult; W19.XXXA Unspecified fall, initial encounter; I48.0 Paroxysmal atrial fibrillation; Z23 Encounter for immunization; Z88.0 Allergy status to penicillin; M19.90 Unspecified osteoarthritis, unspecified site; E78.5 Hyperlipidemia, unspecified; J45.909 Unspecified asthma, uncomplicated; I25.10 Atherosclerotic heart disease of native coronary artery without angina pectoris; J43.9 Emphysema, unspecified; S00.83XA Contusion of other part of head, initial encounter; S20.219A Contusion of unspecified front wall of thorax, initial encounter; Y92.003 Bedroom of unspecified non-institutional (private) residence as the place of occurrence of the external cause; T42.4X5A Adverse effect of benzodiazepines, initial encounter; T42.6X5A Adverse effect of other antiepileptic and sedative-hypnotic drugs, initial encounter

== ENCOUNTER 2017-05-17 14:34 | Inpatient (IN) | payer MEDICARE, BC ==
[2017-05-17 14:35] VITALS: BMI 18.6
--- NOTE | 2017-05-17 14:57 | ED PDOC ---
HPI: Trauma/Fall - HPI Time Seen by Provider: 05/17/17 14:46 Chief Complaint (Nursing): Hip Pain Chief Complaint (Provider): right hip pain History Per: Patient, EMS, Other ([facility] records) Onset/Duration Of Symptoms: Days (1) Injury Occurred (Timing): Days Ago: (1) Anterior Full Body: 1 - pain 2 - pain Posterior Full Body: 1 - pain Severity: Moderate Additional Complaint(s): 81yo female arrives from SNF after reported fall last night around 1130pm. Had XRay R hip showing possible subtle fem neck fracture. History of fall is unclear - per patient she fell striking R side, EMS states she was guided to floor. In ED she c/o R chest wall pain and mild neck pain. Denies pelvis or hip pain. Past Medical History Reviewed: Historical Data, Nursing Documentation, Vital Signs Vital Signs: Last Vital Signs Temp 97.4 F L 05/17/17 14:36 Pulse 85 05/17/17 14:36 Resp 18 05/17/17 14:36 BP 115/73 05/17/17 14:36 Pulse Ox 97 05/17/17 14:57 - Medical History PMH: Anxiety, Asthma, Atrial Fibrillation, CAD, CHF, COPD, Dementia, Depression , Emphysema, HTN, Pneumonia Denies: HIV, Chronic Kidney Disease - Family History Family History: States: Unknown Family Hx - Immunization History Hx Tetanus Toxoid Vaccination: No Hx Influenza Vaccination: No Hx Pneumococcal Vaccination: No - Home Medications Home Medications: Ambulatory Orders Medication Instructions Recorded Aspirin [Ecotrin] 81 mg PO DAILY 02/28/17 Digoxin [Lanoxin] 0.125 mg PO DAILY 02/28/17 Pantoprazole Sodium [Protonix] 40 mg PO DAILY 02/28/17 Gabapentin [Neurontin] 300 mg PO TID #30 cap 04/08/17 Diltiazem HCl [Cartia Xt] 120 mg PO DAILY 04/14/17 Nortriptyline [Pamelor] 25 mg PO DAILY 04/14/17 Thiamine [Vitamin B1 Tab] 100 mg PO DAILY tab 04/19/17 carBAMazepine [TEGretol] 100 mg PO QAM #30 tab 04/19/17 carBAMazepine [Tegretol] 200 mg PO HS tab 04/19/17 Acetaminophen [Tylenol 325mg tab] 650 mg PO Q4H PRN 05/17/17 Acetaminophen [Tylenol 325mg tab] 650 mg PO Q4H PRN 05/17/17 Alprazolam [Xanax] 0.5 mg PO HS 05/17/17 Meclizine [Antivert] 12.5 mg PO BID 05/17/17 Menthol [Bengay Ultra Strength] 1 patch TD DAILY 05/17/17 - Allergies Allergies/Adverse Reactions: Allergies Allergy/AdvReac Type Severity Reaction Status Date / Time Penicillins Allergy WHEEZING Verified 04/08/17 06:45 - Laboratory Results Result Diagrams: 05/17/17 15:17 05/17/17 15:17 - ECG O2 Sat by Pulse Oximetry: 97 Disposition - Disposition Forms: [employer] (Korean)
[2017-05-17 15:20] LABS: BASO # 0.1 K/uL (0.0-0.2); EOS # 0.2 K/uL (0.0-0.7); EOS % 2.4 % (0.0-4.0); HEMATOCRIT 41.7 % (34.0-47.0); LYMPH # 1.2 K/uL (1.0-4.3); MEAN CELL VOLUME 89.6 fl (81.0-99.0); MEAN CORPUSCULAR HEMOGLOBIN 29.5 pg (27.0-31.0); MEAN CORPUSCULAR HGB CONC 32.9 g/dL (33.0-37.0); MEAN PLATELET VOLUME 8.5 fl (7.2-11.7); MONO # 0.8 K/uL (0.0-0.8); MONO % 10.4 % (0.0-10.0); NEUT # 5.1 K/uL (1.8-7.0); NEUT % 69.2 % (50.0-75.0); NRBC % 0.1 % (0.0-0.0); RED CELL DISTRIBUTION WIDTH 16.3 % (11.5-14.5); WHITE BLOOD COUNT 7.3 K/uL (4.8-10.8)
[2017-05-17 15:40] LABS: POTASSIUM 4.5 MMOL/L (3.6-5.0)
[2017-05-17 15:46] LABS: ALB/GLOB RATIO 1.6 (1.0-2.1); ALKALINE PHOSPHATASE 112 U/L (38-126); ALT/SGPT 74 U/L (9-52); AST/SGOT 41 U/L (14-36); BILIRUBIN,TOTAL 0.4 mg/dl (0.2-1.3); BLOOD UREA NITROGEN 35 mg/dl (7-17); CARBON DIOXIDE 27 mmol/L (22-30); CHLORIDE 103 mmol/L (98-107); GFR AFRICAN-AMERICAN > 60; GLUCOSE,RANDOM 106 mg/dL (65-105); SODIUM 139 mmol/l (132-148); TOTAL PROTEIN 6.3 G/DL (6.3-8.2)
--- NOTE | 2017-05-17 15:46 | CT ---
PROCEDURE: CT HEAD WITHOUT CONTRAST. HISTORY: r/o ICH COMPARISON: Head CT without contrast 04/14/2017. TECHNIQUE: Axial computed tomography images were obtained through the head/brain without intravenous contrast. Radiation dose: Total exam DLP = 871.03 mGy-cm. This CT exam was performed using one or more of the following dose reduction techniques: Automated exposure control, adjustment of the mA and/or kV according to patient size, and/or use of iterative reconstruction technique. FINDINGS: HEMORRHAGE: No intracranial hemorrhage. BRAIN: Mild diffuse cerebral atrophy chronic microangiopathy are reiterated the current examination. There is no mass effect or cortical edema. There is no hydrocephalus or extra-axial fluid collection appreciated in the midline brain and appears diffusely unremarkable. VENTRICLES: Unremarkable. No hydrocephalus. CALVARIUM: Unremarkable. PARANASAL SINUSES: Unremarkable as visualized. No significant inflammatory changes. MASTOID AIR CELLS: Unremarkable as visualized. No inflammatory changes. OTHER FINDINGS: None. IMPRESSION: Stable age related neuro degenerative changes are reiterated with no acute intracranial findings by standard CT criteria. Follow-up MRI or CT may be performed as clinically warranted.
--- NOTE | 2017-05-17 16:04 | CT ---
PROCEDURE: CT Cervical Spine without contrast HISTORY: <trauma r/o fx> COMPARISON: None available. TECHNIQUE: Axial computed tomography images were obtained of the cervical spine without the use of intravenous contrast. Coronal and sagittal reformatted images were created and reviewed. Radiation dose: Total exam DLP = 378.58 mGy-cm. This CT exam was performed using one or more of the following dose reduction techniques: Automated exposure control, adjustment of the mA and/or kV according to patient size, and/or use of iterative reconstruction technique. FINDINGS: VERTEBRAE: Hyperlordotic curvature is appreciated likely on the basis of hyper kyphotic thoracic spine deformity only though only a portion of the upper thoracic spine is captured in this exam. Advanced diffuse spondylosis appreciated primarily at the mid to inferior cervical spine accompanied by a prominent facet arthropathy throughout the cervical spine. DISCS/SPINAL CANAL/NEURAL FORAMINA: Limited disc osteophyte complex is appreciate the C2-3 resulting and [id number]-left lateral recess stenosis including vacuum disc changes toward the right. Borderline bilateral neural foraminal stenoses are identified on degenerative basis. Asymmetric facet arthropathy as well as uncovertebral joint degenerative changes result in a moderate left neural foraminal stenosis and mild left robb canal stenosis at the C3-4, borderline at the right both at the right neural foramen and right robb canal. At C4-5, degenerative central canal and moderate bilateral neural foraminal stenoses are identified due to disc osteophyte complex, uncovertebral and facet arthropathy. At C5-6, moderate to severe bilateral neural foraminal stenoses are identified on a degenerative basis with an asymmetric disc osteophyte complex resulting in mild to moderate left robb canal stenosis, borderline at the right. At C6-7 mild right degenerative neural foraminal stenosis appreciate with none on the left and a widely patent central canal noted. At C7-T1, no significant bony stenosis appreciated throughout. OTHER FINDINGS: Bilateral carotid bulbar partially calcified atherosclerotic plaque identified anterior to the prevertebral and paraspinal soft tissues. Further, incidental COPD is suggested by bilateral pulmonary apices where limited fibrosis and emphysema are identified. IMPRESSION: No fracture or spondylolisthesis identified. Multilevel spondylosis and facet arthropathy is also uncovertebral joint degeneration result in variable central canal and neural foraminal stenoses as discussed above. Please see discussion above. Hyper lordotic cervical deformity probably on the basis of hyper kyphotic thoracic spinal deformity. Density incidental COPD suggested.
--- NOTE | 2017-05-17 16:21 | CT ---
PROCEDURE: CT Chest without contrast HISTORY: fall R rib pain COMPARISON: Unenhanced chest CT 07/01/2015. TECHNIQUE: Contiguous axial images were obtained through the chest without intravenous contrast enhancement. Sagittal and coronal reconstructions were performed. Radiation dose (DLP): 234.14 mGy-cm. This CT exam was performed using one or more of the following dose reduction techniques: Automated exposure control, adjustment of the mA and/or kV according to patient size, and/or use of iterative reconstruction technique. FINDINGS: LUNGS: Minimal right pleural effusion and trace pneumothorax are identified related to rib fractures at the right 7th and 8th ribs posteriorly. There is no left pneumothorax or pleural effusion identified. Central airways are clear and there is no definitive pulmonary mass identified bilaterally. Linear atelectasis or fibrosis in the bilateral lower lobes. MEDIASTINUM: Unremarkable thoracic aorta. No aneurysm. Cardiomegaly is identified with extensive coronary artery atherosclerotic calcifications. No significant lymphadenopathy. BONES: Acute fractures are identified at the posterior right 7th and 8th ribs. No fracture of left ribs is appreciated on acute basis. The sternum appears intact. Note is made of kyphotic thoracic spinal deformity with limited chronic T11 compression fracture unchanged compared 07/01/2015 CT. Advanced multilevel degenerative disc disease changes are appreciated throughout. UPPER ABDOMEN: Grossly unremarkable. OTHER FINDINGS: None. IMPRESSION: 1. Fractures of the posterior 7th and 8th ribs are identified with trace pneumothorax and pleural effusion associated. None is seen at the left hemithorax with a chronic T11 compression fracture unchanged dating back to 07/01/[address] at least. 2. Cardiomegaly 3. Linear atelectasis or fibrosis bilateral lower lobes.
--- NOTE | 2017-05-17 17:24 | RAD ---
PROCEDURE: Pelvis and right hip HISTORY: fall COMPARISON: None TECHNIQUE: Standard protocol for this study/examination. FINDINGS: There are no osseous abnormalities to suggest fracture. The pelvic ring is intact. Preserved femoral-acetabular relationship. Negative study for protrusio, subluxation or dislocation. Degenerative changes: Moderate and symmetrical degenerative changes both hips. Incidental finding(s): Fecal impaction/constipation. IMPRESSION: No acute findings related to/accounting for the clinical presentation.
--- NOTE | 2017-05-17 17:37 | RAD ---
HISTORY: Shortness of breath. Technique: Supine view performed @ 16:32. COMPARISON: 04/14/2017 single-view chest. May 17, 2017. CT thorax FINDINGS: LUNGS: No active pulmonary disease. PLEURA: No significant pleural effusion identified, no pneumothorax apparent. CARDIOVASCULAR: Normal. OSSEOUS STRUCTURES: No significant abnormalities. VISUALIZED UPPER ABDOMEN: Normal. OTHER FINDINGS: None. IMPRESSION: No active disease. No significant interval change compared to the prior examination(s).
--- NOTE | 2017-05-17 19:46 | CT ---
EXAM: CT Pelvis Without Intravenous Contrast EXAM DATE/TIME: 05/17/2017 6:04 PM CLINICAL HISTORY: 81 years old, female; Injury or trauma; Fall; Initial encounter; Blunt trauma (contusions or hematomas); Right; Hip; Additional info: RO fracture, fall TECHNIQUE: Axial computed tomography images of the pelvis without intravenous contrast. All CT scans at this facility use one or more dose reduction techniques, viz.: automated exposure control; ma/kV adjustment per patient size (including targeted exams where dose is matched to indication; i.e. head); or iterative reconstruction technique. Coronal and sagittal reformatted images were created and reviewed. COMPARISON: CR - HIP MIN 2V W/ PELVIS RT 2017-05-17 16:26 FINDINGS: Bones/joints: Bony structures are diffusely osteopenic. There are degenerative changes. There are degenerative changes in the lower lumbar spine. There is mild disc bulging L4-L5 and L5-S1. No sacral or pelvic fractures are identified. No hip fracture is identified. There is mild narrowing of both hip joints. Soft tissues: There is bruising in the soft tissues at the right hip. Vasculature: There are vascular calcifications. Stomach and bowel: There is a nonobstructed gas pattern in the pelvis. There is fecalization of distal ileal loops. There is a large amount of stool in the visualized colon. There is a fecal bolus in the rectum. There is diverticulosis. Intraperitoneal space: There is no free air or free fluid. Bladder: Bladder is unremarkable. Reproductive: Uterus is absent. There are no adnexal masses. IMPRESSION: Osteopenia degenerative change, no fracture; minimal bruising at the right hip; constipation/fecal impaction Additional findings as described above.
--- NOTE | 2017-05-17 23:27 | CP.PCM.CON ---
History of Present Illness - History of Present Illness History of Present Illness: Surgery: Dr. Yang CC: Chest pain HPI: Pt is a poor historian. Hx was gathered from review of chart Pt is a 81F w. pmh hx significant for Anxiety, Asthma, Atrial Fibrillation, CAD, CHF, COPD, Dementia, and HTN [facility] s/p [facility]. In ED pt complained of chest pain and CT of chest was ordered which showed a small R side hemopneumothorax for which surgery has been consulted. When pt was seen at bedside, she states that she has some R side chest pain, pain is worse w. movement, and alleviated w. rest. She denies any SOB, no cough, no hemoptysis, no CP/palpitations. PMH: Anxiety, Asthma, Atrial Fibrillation, CAD, CHF, COPD, Dementia, and HTN PSH: hysterectomy, cataracts Meds: MAR reviewed ALL: PCN Social: No ETOH/tobacco/drugs Fhx: non-contributory Review of Systems - Review of Systems All systems: reviewed and no additional remarkable complaints except (HPI) Past Patient History - Infectious Disease Hx of Infectious Diseases: None - Past Medical History & Family History Past Medical History?: Yes - Past Social History Smoking Status: Former Smoker - CARDIAC Hx Cardiac Disorders: Yes Hx Atrial Fibrillation: Yes Hx Congestive Heart Failure: Yes Hx Hypertension: Yes - PULMONARY Hx Respiratory Disorders: Yes Hx Asthma: Yes Hx Chronic Obstructive Pulmonary Disease (COPD): Yes Hx Emphysema: Yes Hx Pneumonia: Yes - NEUROLOGICAL Hx Neurological Disorder: Yes Hx Dementia: Yes - HEENT Hx HEENT Problems: Yes Other/Comment: uses eye glasses, 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 - RENAL Hx Chronic Kidney Disease: No - ENDOCRINE/METABOLIC Hx Endocrine Disorders: No - HEMATOLOGICAL/ONCOLOGICAL Hx Blood Disorders: No Hx Human Immunodeficiency Virus (HIV): No - INTEGUMENTARY Hx Dermatological Problems: Yes (shingles) - MUSCULOSKELETAL/RHEUMATOLOGICAL Hx Musculoskeletal Disorders: Yes Hx Falls: Yes - GASTROINTESTINAL Hx Gastrointestinal Disorders: No - GENITOURINARY/GYNECOLOGICAL Hx Genitourinary Disorders: No - PSYCHIATRIC Hx Psychophysiologic Disorder: Yes Hx Anxiety: Yes Hx Depression: Yes - SURGICAL HISTORY Hx Surgeries: Yes Hx Hysterectomy: Yes - ANESTHESIA Hx Anesthesia: Yes Hx Anesthesia Reactions: No Hx Malignant Hyperthermia: No Meds Allergies/Adverse Reactions: Allergies Allergy/AdvReac Type Severity Reaction Status Date / Time Penicillins Allergy WHEEZING Verified 04/08/17 06:45 Physical Exam - Constitutional Appears: Non-toxic, No Acute Distress - Head Exam Head Exam: ATRAUMATIC, NORMOCEPHALIC - Eye Exam Eye Exam: EOMI - ENT Exam ENT Exam: Mucous Membranes Moist - Neck Exam Neck exam: Positive for: Full Rom - Respiratory Exam Respiratory Exam: NORMAL BREATHING PATTERN. absent: Accessory Muscle Use, Respiratory Distress Additional comments: R posterior ribs, tender to palpation, no ecchymosis, no crepitus - GI/Abdominal Exam GI & Abdominal Exam: Soft. absent: Distended, Firm, Guarding, Rigid, Tenderness - Extremities Exam Extremities exam: Negative for: calf tenderness, pedal edema - Neurological Exam Neurological exam: Alert - Skin Skin Exam: Dry, Warm Results - Vital Signs Recent Vital Signs: Last Vital Signs Temp 98.1 F 05/17/17 21:36 Pulse 84 05/17/17 21:38 Resp 20 05/17/17 21:38 BP 196/98 H 05/17/17 21:36 Pulse Ox 94 L 05/17/17 21:36 - Labs Result Diagrams: 05/17/17 15:17 05/17/17 15:17 Labs: Laboratory Results - last 24 hr 05/17/17 05/17/17 05/17/17 15:17 15:17 15:17 WBC 7.3 RBC 4.65 Hgb 13.7 Hct 41.7 MCV 89.6 MCH 29.5 MCHC 32.9 L RDW 16.3 H Plt Count 208 MPV 8.5 Neut % (Auto) 69.2 Lymph % (Auto) 17.0 L [place] % (Auto) 10.4 H Eos % (Auto) 2.4 Baso % (Auto) 1.0 Neut # 5.1 Lymph # 1.2 [place] # 0.8 Eos # 0.2 Baso # 0.1 PT 11.2 INR 1.0 APTT 32.0 Sodium 139 Potassium 4.5 Chloride 103 Carbon Dioxide 27 Anion Gap 14 BUN 35 H Creatinine 0.9 Est GFR ( Amer) > 60 Est GFR (Non-Af Amer) > 60 Random Glucose 106 H Calcium 9.0 Total Bilirubin 0.4 AST 41 H ALT 74 H D Alkaline Phosphatase 112 Total Protein 6.3 Albumin 3.9 Globulin 2.5 Albumin/Globulin Ratio 1.6 - Imaging and Cardiology CT scan - chest Status: Image reviewed by me, Report reviewed by me Assessment & Plan - Assessment and Plan (Free Text) Assessment: 81F wEwa [place] R side hemopneumothorax -AM CXR -pain management -IS use -will d/w Dr. Celia Caicedo PGY3
[2017-05-18] MEDS: Dextrose 5%/0.9% NS 1,000 ML IV SCH ×2 (01:51→15:16)
[2017-05-18] MEDS: Albuterol-Ipratrop 3 mg / 0.5 (3 ml) UD INH SCH ×4 (02:09→19:06)
--- NOTE | 2017-05-18 07:47 | CP.PCM.PN ---
Subjective - Date & Time of Evaluation Date of Evaluation: 05/18/17 Time of Evaluation: 06:45 - Subjective Subjective: Thoracic Surgery Dr. Yang Pt S&E @bedside. NAEO. no complaints this AM. denies CP, SOB, F/C. admits to some R hip pain. tolerating diet. Objective - Vital Signs/Intake and Output Vital Signs (last 24 hours): Temp Pulse Resp BP Pulse Ox 98.0 F 78 18 115/80 95 05/18/17 05:21 05/18/17 05:21 05/18/17 05:21 05/18/17 05:21 05/18/17 05:21 - Medications Medications: Current Medications Acetaminophen (Tylenol 325mg Tab) 650 mg PO Q6 PRN PRN Reason: Pain, Mild (1-3) Acetaminophen/Codeine Phosphate (Tylenol/Codeine 300 Mg/30 Mg) 1 tab PO Q6 PRN PRN Reason: Pain, moderate (4-7) Albuterol/Ipratropium (Duoneb 3 Mg/0.5 Mg (3 Ml) Ud) 3 ml INH RQ6 CANDY Last Admin: 05/18/17 02:09 Dose: 3 ml Alprazolam (Xanax) 0.5 mg PO HS CANDY Aspirin (Ecotrin) 81 mg PO DAILY CANDY Carbamazepine (Tegretol) 100 mg PO QAM CANDY Carbamazepine (Tegretol) 200 mg PO HS CANDY Digoxin (Lanoxin) 0.125 mg PO DAILY [facility] Diltiazem HCl (Cardizem Cd) 120 mg PO DAILY [facility] Gabapentin (Neurontin) 200 mg PO TID [facility] Heparin Sodium (Porcine) (Heparin) 5,000 units SC Q12 CANDY PRN Reason: Protocol Home Med (Menthol [Bengay Ultra Strength]) 1 patch TD DAILY [facility] Dextrose/Sodium Chloride (Dextrose 5%/0.9% Ns 1000 Ml) 1,000 mls @ 80 mls/hr IV .[id number] [facility] Stop: 05/19/17 01:01 Last Admin: 05/18/17 01:51 Dose: 80 mls/hr Ketorolac Tromethamine (Toradol) 15 mg IVP Q6 PRN PRN Reason: Pain, severe (8-10) Last Admin: 05/18/17 01:52 Dose: 15 mg Meclizine HCl (Antivert) 12.5 mg PO BID CANDY Nortriptyline HCl (Pamelor) 25 mg PO DAILY CANDY Pantoprazole Sodium (Protonix Ec Tab) 40 mg PO DAILY CANDY Thiamine HCl (Vitamin B1 Tab) 100 mg PO DAILY CANDY - Labs Labs: 05/17/17 15:17 05/17/17 15:17 PT 11.2 Seconds (9.8-13.1) 05/17/17 15:17 INR 1.0 (0.9-1.2) 05/17/17 15:17 APTT 32.0 Seconds (25.6-37.1) 05/17/17 15:17 - Constitutional Appears: Non-toxic, No Acute Distress, Confused - Head Exam Head Exam: NORMAL INSPECTION - Eye Exam Eye Exam: Normal appearance - ENT Exam ENT Exam: Mucous Membranes Moist - Respiratory Exam Respiratory Exam: NORMAL BREATHING PATTERN. absent: Accessory Muscle Use, Respiratory Distress Additional comments: no ecchymosis or erythema over ribs - Cardiovascular Exam Cardiovascular Exam: absent: Bradycardia, Tachycardia - GI/Abdominal Exam GI & Abdominal Exam: Soft. absent: Distended, Tenderness - Extremities Exam Extremities Exam: Normal Inspection - Neurological Exam Neurological Exam: Alert, Awake - Psychiatric Exam Psychiatric exam: Normal Affect, Normal Mood - Skin Skin Exam: Dry, Intact, Normal Color, Warm Assessment and Plan - Assessment and Plan (Free Text) Assessment: 81 y/o F w/ rib fracture and small R-sided hemopneumothorax - f/u AM CXR - pain management - encourage OOB to chair/Amb/IS use - PT/OT eval and treat - GI/DVT PPx - no surgical intervention at this time Pt discussed w/ Dr. Celia Michelle DO PGY2
[2017-05-18] MEDS: Pantoprazole 40 mg EC Tab PO SCH (08:42)
[2017-05-18] MEDS: diltiaZEM 120 mg/24 Hours CD Cap PO SCH (08:42)
[2017-05-18] MEDS: carBAMazepine Chew Tab 100 MG Chew Tab PO SCH (08:43)
[2017-05-18] MEDS: Digoxin 125 mcg (0.125 mg) Tab PO SCH (08:43)
--- NOTE | 2017-05-18 11:17 | RAD ---
HISTORY: comparison COMPARISON: 05/17/2017 FINDINGS: LUNGS: The lungs are hyperinflated and there is peribronchial thickening with chronic changes in both lungs. There are fibrotic changes in the right upper lobe. PLEURA: No significant pleural effusion identified, no pneumothorax apparent. There is biapical pleural thickening. CARDIOVASCULAR: There is mild cardiomegaly. OSSEOUS STRUCTURES: No significant abnormalities. VISUALIZED UPPER ABDOMEN: Normal. OTHER FINDINGS: None. IMPRESSION: COPD. No active pulmonary disease.
[2017-05-18] MEDS: Menthol/Methyl Salicylate Oinment TOP SCH (12:13)
--- NOTE | 2017-05-18 15:18 | CP.PCM.CON ---
History of Present Illness - History of Present Illness History of Present Illness: Pt s/e. 80 y o female with multiple commorbidities presented to ER on 05-17-17 from skilled nursing following fall in the Bathroom. Px-diffuse tenderness right lateral and posterior chest wall. ct-7th 8th rib fractures. min pneumo and effusion. f/u chest xray this am-satisfactory. a/p : FAll. Fx right 7 and 8th ribs. Min pneumo and effusion right. Incentive spirometer. Pain control CXRs Past Patient History - Infectious Disease Hx of Infectious Diseases: None - Past Medical History & Family History Past Medical History?: Yes - Past Social History Smoking Status: Former Smoker - CARDIAC Hx Cardiac Disorders: Yes Hx Atrial Fibrillation: Yes Hx Congestive Heart Failure: Yes Hx Hypertension: Yes - PULMONARY Hx Respiratory Disorders: Yes Hx Asthma: Yes Hx Chronic Obstructive Pulmonary Disease (COPD): Yes Hx Emphysema: Yes Hx Pneumonia: Yes - NEUROLOGICAL Hx Neurological Disorder: Yes Hx Dementia: Yes - HEENT Hx HEENT Problems: Yes Other/Comment: uses eye glasses, 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 - RENAL Hx Chronic Kidney Disease: No - ENDOCRINE/METABOLIC Hx Endocrine Disorders: No - HEMATOLOGICAL/ONCOLOGICAL Hx Blood Disorders: No Hx Human Immunodeficiency Virus (HIV): No - INTEGUMENTARY Hx Dermatological Problems: Yes (shingles) - MUSCULOSKELETAL/RHEUMATOLOGICAL Hx Musculoskeletal Disorders: Yes Hx Falls: Yes - GASTROINTESTINAL Hx Gastrointestinal Disorders: No - GENITOURINARY/GYNECOLOGICAL Hx Genitourinary Disorders: No - PSYCHIATRIC Hx Psychophysiologic Disorder: Yes Hx Anxiety: Yes Hx Depression: Yes - SURGICAL HISTORY Hx Surgeries: Yes Hx Hysterectomy: Yes - ANESTHESIA Hx Anesthesia: Yes Hx Anesthesia Reactions: No Hx Malignant Hyperthermia: No Meds Allergies/Adverse Reactions: Allergies Allergy/AdvReac Type Severity Reaction Status Date / Time Penicillins Allergy WHEEZING Verified 04/08/17 06:45 - Medications Medications: Current Medications Acetaminophen (Tylenol 325mg Tab) 650 mg PO Q6 PRN PRN Reason: Pain, Mild (1-3) Acetaminophen/Codeine Phosphate (Tylenol/Codeine 300 Mg/30 Mg) 1 tab PO Q6 PRN PRN Reason: Pain, moderate (4-7) Albuterol/Ipratropium (Duoneb 3 Mg/0.5 Mg (3 Ml) Ud) 3 ml INH RQ6 CANDY Last Admin: 05/18/17 13:31 Dose: 3 ml Alprazolam (Xanax) 0.5 mg PO HS [facility] Aspirin (Ecotrin) 81 mg PO DAILY [facility] Last Admin: 05/18/17 08:44 Dose: 81 mg Camphor/Menthol (Bengay) 1 applic TOP DAILY [facility] Last Admin: 05/18/17 12:13 Dose: 1 applic Carbamazepine (Tegretol) 100 mg PO QAM [facility] Last Admin: 05/18/17 08:43 Dose: 100 mg Carbamazepine (Tegretol) 200 mg PO HS [facility] Digoxin (Lanoxin) 0.125 mg PO DAILY [facility] Last Admin: 05/18/17 08:43 Dose: 0.125 mg Diltiazem HCl (Cardizem Cd) 120 mg PO DAILY [facility] Last Admin: 05/18/17 08:42 Dose: 120 mg Gabapentin (Neurontin) 200 mg PO TID [facility] Last Admin: 05/18/17 12:13 Dose: 200 mg Heparin Sodium (Porcine) (Heparin) 5,000 units SC Q12 CANDY PRN Reason: Protocol Last Admin: 05/18/17 08:43 Dose: 5,000 units Dextrose/Sodium Chloride (Dextrose 5%/0.9% Ns 1000 Ml) 1,000 mls @ 80 mls/hr IV .[id number] [facility] Stop: 05/19/17 01:01 Last Admin: 05/18/17 01:51 Dose: 80 mls/hr Ketorolac Tromethamine (Toradol) 15 mg IVP Q6 PRN PRN Reason: Pain, severe (8-10) Last Admin: 05/18/17 12:11 Dose: 15 mg Lactulose (Enulose) 20 gm PO DAILY [facility] Last Admin: 05/18/17 12:12 Dose: 20 gm Meclizine HCl (Antivert) 12.5 mg PO BID [facility] Last Admin: 05/18/17 12:12 Dose: 12.5 mg Nortriptyline HCl (Pamelor) 25 mg PO DAILY [facility] Pantoprazole Sodium (Protonix Ec Tab) 40 mg PO DAILY [facility] Last Admin: 05/18/17 08:42 Dose: 40 mg Thiamine HCl (Vitamin B1 Tab) 100 mg PO DAILY [facility] Last Admin: 05/18/17 08:44 Dose: 100 mg Results - Vital Signs Recent Vital Signs: Last Vital Signs Temp 98.2 F 05/18/17 12:00 Pulse 74 11/17/17 12:00 Resp 18 05/18/17 12:00 BP 107/71 05/18/17 12:00 Pulse Ox 96 05/18/17 12:00 - Labs Result Diagrams: 05/17/17 15:17 05/17/17 15:17 Labs: Laboratory Results - last 24 hr 05/17/17 05/17/17 05/17/17 15:17 15:17 15:17 WBC 7.3 RBC 4.65 Hgb 13.7 Hct 41.7 MCV 89.6 MCH 29.5 MCHC 32.9 L RDW 16.3 H Plt Count 208 MPV 8.5 Neut % (Auto) 69.2 Lymph % (Auto) 17.0 L [place] % (Auto) 10.4 H Eos % (Auto) 2.4 Baso % (Auto) 1.0 Neut # 5.1 Lymph # 1.2 [place] # 0.8 Eos # 0.2 Baso # 0.1 PT 11.2 INR 1.0 APTT 32.0 Sodium 139 Potassium 4.5 Chloride 103 Carbon Dioxide 27 Anion Gap 14 BUN 35 H Creatinine 0.9 Est GFR ( Amer) > 60 Est GFR (Non-Af Amer) > 60 Random Glucose 106 H Calcium 9.0 Total Bilirubin 0.4 AST 41 H ALT 74 H D Alkaline Phosphatase 112 Total Protein 6.3 Albumin 3.9 Globulin 2.5 Albumin/Globulin Ratio 1.6
--- NOTE | 2017-05-18 17:43 | CARD ---
APPROVED REPORT EKG Measurement Heart [id number] <Conclusion> Atrial fibrillation Minimal voltage criteria for LVH, may be normal variant
[2017-05-18] MEDS: Acetaminophen-Codeine 300/30 mg Tab PO PRN (20:16)
[2017-05-19] MEDS: Albuterol-Ipratrop 3 mg / 0.5 (3 ml) UD INH SCH ×4 (00:59→19:13)
[2017-05-19] MEDS: Acetaminophen-Codeine 300/30 mg Tab PO PRN ×2 (06:32→16:59)
[2017-05-19 08:10] VITALS: RESP 18
[2017-05-19] MEDS: diltiaZEM 120 mg/24 Hours CD Cap PO SCH (09:15)
[2017-05-19] MEDS: Pantoprazole 40 mg EC Tab PO SCH (09:15)
[2017-05-19] MEDS: Menthol/Methyl Salicylate Oinment TOP SCH (09:16)
[2017-05-19] MEDS: carBAMazepine Chew Tab 100 MG Chew Tab PO SCH (09:16)
[2017-05-19] MEDS: Digoxin 125 mcg (0.125 mg) Tab PO SCH (09:16)
--- NOTE | 2017-05-19 23:33 | PN ---
DATE: 05/19/2017 SUBJECTIVE: The patient is seen today 05/19/2017. She is not in any cardiopulmonary distress. PHYSICAL EXAMINATION: VITAL SIGNS: Blood pressure is 137/85, temperature 98.3, respiratory rate 18 and pulse 84. HEENT: Pupils equal, reactive to light. Normal-appearing mucosa of the conjunctivae, oropharynx and nasal membrane mucosa. NECK: Supple. No JVD. No carotid bruit. No lymph nodes. No thyromegaly. CHEST AND LUNGS: Bilateral symmetrical expansion. Good air exchange. No rales, no rhonchi. CARDIOVASCULAR: PMI not localized. S1 and S2. No additional sounds. ABDOMEN: Normoactive bowel sounds. No tenderness. No organomegaly. No masses. EXTREMITIES: No cyanosis, no clubbing, no edema. CORRESPONDENCE SPECIALIST: Alert, awake, oriented x2. No neurological deficits could be appreciated. ASSESSMENT: 1. Fall with multiple rib fractures and contusion of the pelvis. 2. Chronic COPD. 3. Chronic atrial fibrillation, not on any anticoagulant, could not tolerate previous anticoagulant. PLAN: Continue current medications and pain management as well as physical therapy and discharge planning. Kiara Willingham MD
[2017-05-20] MEDS: Albuterol-Ipratrop 3 mg / 0.5 (3 ml) UD INH SCH ×2 (01:11→07:36)
[2017-05-20] MEDS: Acetaminophen-Codeine 300/30 mg Tab PO PRN (04:40)
--- NOTE | 2017-05-20 07:51 | HP ---
HISTORY OF PRESENT ILLNESS: This is an 81-year-old female with history of multiple medical problems who is on subacute rehabilitation at [facility].. Patient fell and she was not able to get out of bed. Patient was brought to emergency room for evaluation where she was found to have right rib fracture as well as small pneumothorax. Patient also has sustained low back pain and pelvic contusion. PAST MEDICAL HISTORY: COPD, chronic atrial fibrillation, hypertension, postherpetic neuralgia. FAMILY HISTORY: Not contributory. SOCIAL HISTORY: No history of smoking, ETOH, or substance abuse. REVIEW OF SYSTEMS: Other review of systems negative. ALLERGIES: POSITIVE TO PENICILLIN. HOME MEDICATIONS: As per AUG. PHYSICAL EXAMINATION GENERAL: The patient was in bed, comfortable, not in any cardiopulmonary distress at the time of this examination. VITAL SIGNS: Blood pressure 115/80, temperature 98.0, respiratory rate 18 and pulse 78. HEENT: Pupils equal, reactive to light. Normal-appearing mucosa of the conjunctivae, oropharynx and nasal membrane mucosa. NECK: Supple. No JVD. No carotid bruit. No lymph node. No thyromegaly. CHEST AND LUNGS: Bilateral symmetrical expansion and good air exchange. No rales, no rhonchi. CARDIOVASCULAR: PMI not localized. S1, S2. No additional sounds. ABDOMEN: Normoactive bowel sounds. No tenderness. No organomegaly. No masses. EXTREMITIES: No cyanosis. No clubbing. No edema. THREAD MARKER: Alert, awake, oriented x2. No neurological deficits could be appreciated. ASSESSMENT: Fall with rib fracture and small pneumothorax, pelvic contusion, hypertension, chronic obstructive pulmonary disease, chronic atrial fibrillation, postherpetic neuralgia. PLAN: Continue current management and physical therapy and follow with thoracic physician assistant surgery regarding the small pneumothorax. Kiara Willingham MD
[2017-05-20 08:12] VITALS: BP 136/76; PULSE 105; TEMP 98.5; O2SAT 93
[2017-05-20] MEDS: Pantoprazole 40 mg EC Tab PO SCH (09:16)
[2017-05-20] MEDS: Menthol/Methyl Salicylate Oinment TOP SCH (09:16)
[2017-05-20] MEDS: Digoxin 125 mcg (0.125 mg) Tab PO SCH (09:16)
[2017-05-20] MEDS: diltiaZEM 120 mg/24 Hours CD Cap PO SCH (09:18)
[2017-05-20] MEDS: carBAMazepine Chew Tab 100 MG Chew Tab PO SCH (09:18)
[2017-05-20 09:19] VITALS: PULSE 105
--- NOTE | 2017-05-21 12:37 | CARD ---
APPROVED REPORT EKG Measurement Heart [id number] <Conclusion> Atrial fibrillation ST depression, consider subendocardial injury Nonspecific T wave abnormality Abnormal ECG
== END 2017-05-20 13:20 | disposition home or self-care (01) | DRG 183 ==
LOC: H.ER 14:34 → H.ERHOLD 17:22 → H.TEL 21:30
PROVIDERS: ADMIT Internal Medicine; ATTEND Internal Medicine
DX: S22.41XA Multiple fractures of ribs, right side, initial encounter for closed fracture (principal); S27.2XXA Traumatic hemopneumothorax, initial encounter; I11.0 Hypertensive heart disease with heart failure; I50.9 Heart failure, unspecified; J43.9 Emphysema, unspecified; F03.90 Unspecified dementia, unspecified severity, without behavioral disturbance, psychotic disturbance, mood disturbance, and anxiety; B02.29 Other postherpetic nervous system involvement; I48.2 Chronic atrial fibrillation; W19.XXXA Unspecified fall, initial encounter; Y93.9 Activity, unspecified; Y92.129 Unspecified place in nursing home as the place of occurrence of the external cause; Z88.0 Allergy status to penicillin; I25.10 Atherosclerotic heart disease of native coronary artery without angina pectoris; J45.909 Unspecified asthma, uncomplicated; F41.9 Anxiety disorder, unspecified; F32.9 Major depressive disorder, single episode, unspecified; M54.5 Low back pain; S30.0XXA Contusion of lower back and pelvis, initial encounter; Z87.891 Personal history of nicotine dependence

== ENCOUNTER 2017-06-02 15:22 | Emergency (ER) | payer MEDICARE, BC ==
[2017-06-02 15:22] VITALS: PULSE 105; BMI 18.6
[2017-06-02 15:52] VITALS: BP 122/66; PULSE 72; RESP 18; TEMP 97.4; O2SAT 94
--- NOTE | 2017-06-02 17:03 | ED PDOC ---
Upper Extremity Pain/Injury Time Seen by Provider: 06/02/17 15:57 Chief Complaint (Nursing): Upper Extremity Problem/Injury Chief Complaint (Provider): Upper Extremity Problem/Injury History Per: Patient History/Exam Limitations: no limitations Onset/Duration Of Symptoms: Days (x2) Current Symptoms Are (Timing): Still Present Additional Complaint(s): 81 year old female, right-hand dominant, who presents to the emergency department with a complaint of sudden onset of left arm pain associated with swelling and bruising status post falling yesterday morning. Patient has history of falls due to difficulty with balance and ambulating without walker. Denied any numbness, weakness, neck, back or leg pain. Patient stated she took Tylenol for pain relief. Recent hospitalization for fall and rib fracture with pneumothorax. TECHNICAL PROGRAMS MANAGER, who admits she is new with caring for patient, says that she has a congested cough at night. Pt reports that this is chronic issue due to her COPD. Also has pedal edema which she also reports intermittently waxes and wanes and has improved since coming home from last hospital visit. PMD: Kiara Willingham MD Past Medical History Reviewed: Historical Data, Nursing Documentation, Vital Signs Vital Signs: Last Vital Signs Temp 97.4 F L 06/02/17 15:48 Pulse 72 06/02/17 15:48 Resp 18 06/02/17 15:48 BP 122/66 06/02/17 15:48 Pulse Ox 94 L 06/02/17 15:48 - Medical History PMH: Anxiety, Asthma, Atrial Fibrillation, CAD, CHF, COPD, Dementia, Depression , Emphysema, HTN, Pneumonia Denies: HIV, Chronic Kidney Disease - Surgical History Surgical History: No Surg Hx - Family History Family History: States: Unknown Family Hx - Social History Current smoker - smoking cessation education provided: No Ex-Smoker (has not smoked in the last 12 months): Yes Alcohol: None Drugs: Denies - Immunization History Hx Tetanus Toxoid Vaccination: No Hx Influenza Vaccination: No Hx Pneumococcal Vaccination: No - Home Medications Home Medications: Ambulatory Orders Medication Instructions Recorded Aspirin [Ecotrin] 81 mg PO DAILY 02/28/17 Digoxin [Lanoxin] 0.125 mg PO DAILY 02/28/17 Pantoprazole Sodium [Protonix] 40 mg PO DAILY 02/28/17 Thiamine [Vitamin B1 Tab] 100 mg PO DAILY tab 04/19/17 carBAMazepine [Tegretol] 200 mg PO HS tab 04/19/17 Meclizine [Antivert] 12.5 mg PO BID 05/17/17 Menthol [Bengay Ultra Strength] 1 patch TD DAILY 05/17/17 ALPRAZolam [Xanax] 0.25 mg PO HS #30 tab 05/19/17 Gabapentin [Neurontin] 200 mg PO TID 30 Days #90 capsule 05/19/17 Lidocaine 2% Gel [Xylocaine 2% 1 appl TP Q12 #1 gel 05/19/17 (Uro-Jet)] Nortriptyline [Pamelor] 25 mg PO DAILY #30 cap 05/19/17 carBAMazepine [TEGretol] 100 mg PO BID 30 Days #60 tab 05/19/17 diltiaZEM CD [Cardizem CD] 120 mg PO DAILY cap 05/19/17 - Allergies Allergies/Adverse Reactions: Allergies Allergy/AdvReac Type Severity Reaction Status Date / Time Penicillins Allergy WHEEZING Verified 04/08/17 06:45 Review of Systems ROS Statement: Except As Marked, All Systems Reviewed And Found Negative Musculoskeletal: Positive for: Arm Pain (left-sided with swelling and bruising) . Negative for: Neck Pain, Back Pain, Leg Pain Neurological: Negative for: Weakness, Numbness Physical Exam - Reviewed Nursing Documentation Reviewed: Yes Vital Signs Reviewed: Yes - Physical Exam Appears: Positive for: Non-toxic, No Acute Distress Head Exam: Positive for: ATRAUMATIC, NORMOCEPHALIC Skin: Positive for: Warm, Dry Cardiovascular/Chest: Positive for: Regular Rate, Rhythm, Edema (only pedal). Negative for: Murmur Respiratory: Positive for: Rhonchi (diffusely). Negative for: Respiratory Distress Gastrointestinal/Abdominal: Positive for: Soft. Negative for: Tenderness Extremity: Positive for: Pedal Edema, Other (LEFT forearm: diffuse edema distal forearm with ecchymotic areas especially laterally, minimal ttp with no stepoff or crepitus, flex/ext/finger opposition and abduction/thumb opp/abduction intact ; light touch intact, <2 sec CR, strong radial pulse) Neurologic/Psych: Positive for: Other. Negative for: Motor/Sensory Deficits - ECG O2 Sat by Pulse Oximetry: 94 (RA) Pulse Ox Interpretation: Normal Medical Decision Making Medical Decision Making: Initial Impression: Left forearm injury Differential Diagnosis: Fracture VS. contusion Initial Plan: * Ice applied * Xray forearm (left) * Xray wrist (left) Distal radial fracture on xray Improvement ptx on cxr. Scribe Attestation: Documented by Estefania Yun, acting as a scribe for Shyann Chilel MD. Provider Scribe Attestation: All medical record entries made by the Scribe were at my direction and personally dictated by me. I have reviewed the chart and agree that the record accurately reflects my personal performance of the history, physical exam, medical decision making, and the department course for this patient. I have also personally directed, reviewed, and agree with the discharge instructions and disposition. Disposition - Clinical Impression Clinical Impression: Fracture of wrist, COPD (chronic obstructive pulmonary disease) Counseled Patient/Family Regarding: Studies Performed, Diagnosis, Need For Followup - Disposition Referrals: Guille Donovan III, MD [Staff Provider] - Kiara Willingham MD [Staff Provider] - Disposition: Routine/Home Disposition Time: 17:45 Condition: STABLE Additional Instructions: FOLLOW UP WITH DR WILLINGHAM AND DR DONOVAN NEXT WEEK FOR FURTHER MANAGEMENT Instructions: Wrist Fracture in Adults (ED), Fall Prevention for Older Adults ( ED), COPD (Chronic Obstructive Pulmonary Disease) (ED), Splint Care (ED)
--- NOTE | 2017-06-02 18:00 | RAD ---
HISTORY: cough COMPARISON: Comparison made with prior study 05/18/2017. Comparison also made with the prior CT scan chest dated 05/17/2017. FINDINGS: LUNGS: Lung santana appear mildly hyperinflated. Rule out underlying chronic changes of COPD - emphysema. . There may be some minor bibasilar atelectasis or scarring. PLEURA: Previously noted trace right-sided pneumothorax is not visible on CARDIOVASCULAR: Heart appears mildly enlarged. OSSEOUS STRUCTURES: No significant abnormalities. VISUALIZED UPPER ABDOMEN: Normal. OTHER FINDINGS: None. IMPRESSION: This exam chronic changes of COPD/-emphysema. Previously noted trace right-sided pneumothorax not appreciated on this exam. Mild bibasilar atelectasis and or scarring. . Cardiomegaly.
--- NOTE | 2017-06-02 18:04 | RAD ---
PROCEDURE: Left Wrist Radiographs. HISTORY: fall r/o fracture COMPARISON: Correlation made with concurrent radiographs of the left forearm. FINDINGS: BONES: There is slight cortical regularity along the distal radius. . . The possibility of a nondisplaced fracture cannot be clinically excluded. Repeat radiographs 7-10 days recommended for further evaluation. 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 . SOFT TISSUES: Soft tissues appear grossly unremarkable OTHER FINDINGS: None. IMPRESSION: There is slight cortical regularity along the distal radius. . . The possibility of a nondisplaced fracture cannot be clinically excluded. Repeat radiographs 7-10 days recommended for further evaluation. . Note that this report was placed in PA review folder for followup
--- NOTE | 2017-06-03 13:35 | RAD ---
PROCEDURE: Left forearm dated 06/02/2017. HISTORY: LEFT forearm pain COMPARISON: Study available for correlation made with concurrent radiographs of the left wrist. TECHNIQUE: Frontal and lateral views obtained. FINDINGS: BONES: Re- demonstrated is cortical irregularity of the on distal left radius however no definitive from fracture line seen. Possibility of a nondisplaced fracture cannot be completely excluded. Repeat radiographs in 7-10 days recommended. JOINT SPACES: Triscaphe degenerative osteoarthritis again noted OTHER FINDINGS: None. IMPRESSION: Cortical irregularity of the on distal left radius however no definitive from fracture line seen. Possibility of a nondisplaced fracture cannot be completely excluded. Repeat radiographs in 7-10 days recommended. . Note that the left wrist report was placed in PA review for followup.
== END 2017-06-02 18:10 | disposition home or self-care (01) ==
LOC: H.ER 15:22
DX: S62.91XA Unspecified fracture of right hand, initial encounter for closed fracture (principal); W19.XXXA Unspecified fall, initial encounter; Y92.89 Other specified places as the place of occurrence of the external cause; F03.90 Unspecified dementia, unspecified severity, without behavioral disturbance, psychotic disturbance, mood disturbance, and anxiety; F32.9 Major depressive disorder, single episode, unspecified; F41.9 Anxiety disorder, unspecified; I11.0 Hypertensive heart disease with heart failure; I25.10 Atherosclerotic heart disease of native coronary artery without angina pectoris; I48.91 Unspecified atrial fibrillation; J44.9 Chronic obstructive pulmonary disease, unspecified; Z79.82 Long term (current) use of aspirin; Z88.0 Allergy status to penicillin

== ENCOUNTER 2017-06-26 11:14 | Inpatient (IN) | payer MEDICARE, BC ==
[2017-06-26 11:15] VITALS: BMI 18.6
--- NOTE | 2017-06-26 11:38 | ED PDOC ---
HPI:STROKE - Time Time: 11:36 - Historian Historian: Family, Caregiver, EMS - Chief Complaint Chief Complaint: Mental status change - Onset Date: 06/25/17 Time: 22:00 Onset: Hours (13) - Timing Timing: Currently Symptomatic - Location Location: Mental Status (Noted by caregiver to be lethargic this AM on awakening. Last known normal 10PM last night. EMS states slurred speech, unable to perform NIHSS infeild), Speech - Severity of pain Maximum severity:: Mild Pain Scale:: 0 Severity Current: Mild Pain Scale:: 0 - Exacerbated by Exacerbated by:: Nothing - Relieved by Relieved by:: Nothing - TPA Positive for Contraindication: Yes Reason tPA is not being Administered: Sxs x 13 hrs NIHSS Stroke Scale - How Severe is the Stroke Level of Consciousness: 1=Drowsy LOC to Questions: 1=One correct LOC to commands: 0=Obeys both correctly Best Gaze: 0=Normal Visual: 0=No visual loss Facial: 0=Normal Motor Arm - Left: 1=Drift noted before 10 sec Motor Arm - Right: 0=No drift Motor Leg - Left: 0=No drift Motor Leg - Right: 0=No drift Limb Ataxia: 0=Absent Sensory: 0=Normal Best Language: 0=No aphasia Dysarthia: 1=Mild to moderate slurring Extinction & Inattention (Neglect): 0=Normal, no object Score: 4 rTPA Inclusion/Exclusion - Refusal of Treatment Patient Refused Treatment: No - Inclusion Criteria for Altepase Patient is 18 years or Older: Yes The Clinical Diagnosis of Ischemic Stroke That is Causing a Potentially Disabling Neurological Deficit: Yes Time of Onset is Well Established to be Less Than 270 Minute Before Treatment Would Begin: No Risk/Benefit Discussed With Patient/Family Member Present: No Past Medical History Vital Signs: Last Vital Signs Temp 97 F L 06/26/17 11:29 Pulse 60 06/26/17 11:29 Resp 18 06/26/17 11:29 BP 106/66 06/26/17 11:29 Pulse Ox 100 06/26/17 11:29 - Medical History PMH: Anxiety, Asthma, Atrial Fibrillation, CAD, CHF, COPD, Dementia, Depression , Emphysema, HTN, Pneumonia Denies: HIV, Chronic Kidney Disease - Family History Family History: States: Unknown Family Hx - Immunization History Hx Tetanus Toxoid Vaccination: No Hx Influenza Vaccination: No Hx Pneumococcal Vaccination: No - Home Medications Home Medications: Ambulatory Orders Medication Instructions Recorded Aspirin [Ecotrin] 81 mg PO DAILY 02/28/17 Digoxin [Lanoxin] 0.125 mg PO DAILY 02/28/17 Pantoprazole Sodium [Protonix] 40 mg PO DAILY 02/28/17 Thiamine [Vitamin B1 Tab] 100 mg PO DAILY tab 04/19/17 carBAMazepine [Tegretol] 200 mg PO HS tab 04/19/17 Meclizine [Antivert] 12.5 mg PO BID 05/17/17 Menthol [Bengay Ultra Strength] 1 patch TD DAILY 05/17/17 ALPRAZolam [Xanax] 0.25 mg PO HS #30 tab 05/19/17 Gabapentin [Neurontin] 200 mg PO TID 30 Days #90 capsule 05/19/17 Lidocaine 2% Gel [Xylocaine 2% 1 appl TP Q12 #1 gel 05/19/17 (Uro-Jet)] Nortriptyline [Pamelor] 25 mg PO DAILY #30 cap 05/19/17 carBAMazepine [TEGretol] 100 mg PO BID 30 Days #60 tab 05/19/17 diltiaZEM CD [Cardizem CD] 120 mg PO DAILY cap 05/19/17 - Allergies Allergies/Adverse Reactions: Allergies Allergy/AdvReac Type Severity Reaction Status Date / Time Penicillins Allergy WHEEZING Verified 04/08/17 06:45 Review of Systems Review Of Systems: ROS cannot be obtained secondary to pt's inabilty to answer questions. Physical Exam - Reviewed Nursing Documentation Reviewed: Yes Vital Signs Reviewed: Yes - Physical Exam Appears: Positive for: Non-toxic, No Acute Distress Head Exam: Positive for: ATRAUMATIC, NORMAL INSPECTION, NORMOCEPHALIC Skin: Positive for: Normal Color, Warm, DRY Eye Exam: Positive for: EOMI, Normal appearance, PERRL ENT: Positive for: Normal ENT Inspection Neck: Positive for: Normal, Painless ROM Cardiovascular/Chest: Positive for: Regular Rate, Rhythm Respiratory: Positive for: CNT, Normal Breath Sounds Gastrointestinal/Abdominal: Positive for: Normal Exam, Bowel Sounds, Soft Back: Positive for: Normal Inspection Extremity: Positive for: Normal ROM Neurologic/Psych: Positive for: Motor/Sensory Deficits (? drift left upper ext) . Negative for: Alert, Oriented (Lethargic arousable) - Laboratory Results Result Diagrams: 06/26/17 12:24 12/26/17 12:24 - ECG O2 Sat by Pulse Oximetry: 100 Disposition - Clinical Impression Clinical Impression: Altered mental status, Pneumonia, Pleural effusion - Patient ED Disposition Is Patient to be Admitted: Yes - Disposition Disposition Time: 12:53 Condition: GUARDED Forms: [facility] ([place]) - Pt Status Changed To: Hospital Disposition Of: Inpatient - Admit Certification Admit to Inpatient:: After my assessment, the patient will require hospitalization for at least two midnights. This is because of the severity of symptoms shown, intensity of services needed, and/or the medical risk in this patient being treated as an outpatient. - POA Present On Arrival: None
--- NOTE | 2017-06-26 11:57 | CT ---
PROCEDURE: CT HEAD WITHOUT CONTRAST. HISTORY: code stroke COMPARISON: 05/17/2017 TECHNIQUE: Axial computed tomography images were obtained through the head/brain without intravenous contrast. Radiation dose: Total exam DLP = 864.62 mGy-cm. This CT exam was performed using one or more of the following dose reduction techniques: Automated exposure control, adjustment of the mA and/or kV according to patient size, and/or use of iterative reconstruction technique. FINDINGS: Examination technically limited due to patient motion artifact as well as beam hardening artifact from metallic dental hardware HEMORRHAGE: No intracranial hemorrhage. BRAIN: No mass effect or edema. Mild diffuse atrophy. Moderate periventricular white matter lucency consistent with chronic microvascular ischemic change. No evidence of acute infarct. VENTRICLES: Unremarkable. No hydrocephalus. CALVARIUM: Unremarkable. PARANASAL SINUSES: Small amount of dependent fluid in left maxillary antrum. Nonspecific. Rule out acute sinusitis. MASTOID AIR CELLS: Unremarkable as visualized. No inflammatory changes. OTHER FINDINGS: None. IMPRESSION: No evidence of acute infarct. No evidence of acute intracranial hemorrhage. Atrophy and chronic white matter ischemic change. Small amount of dependent fluid in left maxillary antrum. Rule out acute left maxillary sinusitis. These findings were discussed by telephone with Dr. Schuster at 11:52 a.m. on 06/26/2017.
[2017-06-26 12:07] LABS: VENOUS BLOOD GAS BASE EXCESS 15.2 mmol/L (0.0-2.0); VENOUS BLOOD GAS PCO2 81 mmHg (40-60); VENOUS BLOOD GAS PO2 24 mm/Hg (30-55); VENOUS BLOOD PH 7.35 (7.32-7.43)
--- NOTE | 2017-06-26 12:09 | RAD ---
HISTORY: cva COMPARISON: 06/02/2017 FINDINGS: LUNGS: Right apical opacity new since prior. Cannot rule out opacity at right base due to superimposed pleural effusion. No left-sided abnormal opacity. PLEURA: Moderate right pleural effusion. No left pleural effusion. No pneumothorax. CARDIOVASCULAR: Normal. OSSEOUS STRUCTURES: No significant abnormalities. VISUALIZED UPPER ABDOMEN: Normal. OTHER FINDINGS: None. IMPRESSION: New right apical opacity. Moderate right pleural effusion.
[2017-06-26 12:29] LABS: BASO # 0.1 K/uL (0.0-0.2); BASO % 0.5 % (0.0-2.0); EOS % 0.2 % (0.0-4.0); HEMOGLOBIN 11.5 g/dL (12.0-16.0); LYMPH # 0.9 K/uL (1.0-4.3); LYMPH % 4.5 % (20.0-40.0); MEAN CELL VOLUME 91.6 fl (81.0-99.0); MEAN CORPUSCULAR HEMOGLOBIN 29.8 pg (27.0-31.0); MEAN CORPUSCULAR HGB CONC 32.5 g/dL (33.0-37.0); MEAN PLATELET VOLUME 8.7 fl (7.2-11.7); MONO # 1.6 K/uL (0.0-0.8); MONO % 8.2 % (0.0-10.0); NEUT # 17.3 K/uL (1.8-7.0); NEUT % 86.6 % (50.0-75.0); NRBC % 0.1 % (0.0-0.0); PLATELET COUNT 434 K/uL (130-400); RBC 3.86 Mil/uL (3.80-5.20)
[2017-06-26] MEDS ORDERED: Aztreonam 1 GM in Sodium Chloride 0.9% 100 ML IVPB STA (12:29)
[2017-06-26 12:51] LABS: ALBUMIN 3.7 g/dL (3.5-5.0); CALCIUM 9.5 mg/dL (8.4-10.2); GFR AFRICAN-AMERICAN > 60; GFR NON-AFRICAN AMERICAN > 60; HDL CHOLESTEROL 23 MG/DL (30-70)
[2017-06-26 12:53] LABS: ALT/SGPT 119 U/L (9-52); AST/SGOT 86 U/L (14-36); BLOOD UREA NITROGEN 46 mg/dl (7-17)
[2017-06-26] MEDS ORDERED: Sodium Chloride 0.9% 1,000 ML IV STA ×2 (12:54→15:41)
[2017-06-26 12:58] LABS: INR 1.1 (0.9-1.2); PARTIAL THROMBOPLASTIN TIME 36.4 Seconds (25.6-37.1); PROTHROMBIN TIME 12.6 Seconds (9.8-13.1)
[2017-06-26 12:58] LABS: ABG ALLEN TEST YES; ARTERIAL BLOOD GAS HCO3 35.8 mmol/L (21-28); ARTERIAL BLOOD GAS HEMOGLOBIN 11.4 g/dL (11.7-17.4); ARTERIAL BLOOD GAS O2 CONTENT 16.1 ML/dL (15-23); ARTERIAL BLOOD GAS O2 SAT 100.4 % (95-98); ARTERIAL BLOOD GAS PCO2 53 mm/Hg (35-45); ARTERIAL BLOOD GAS PH 7.48 (7.35-7.45); ARTERIAL BLOOD GAS PO2 265 mm/Hg (80-100); ARTERIAL BLOOD GAS TCO2 41.1 mmol/L (22-28)
[2017-06-26 13:03] LABS: LDL CHOLESTEROL 47 mg/dL (0-129)
[2017-06-26 13:49] LABS: ANISOCYTOSIS SLIGHT; BANDS 1 % (0-2); EOSINOPHIL 1 % (0-7); GIANT PLATELETS PRESENT; HYPOCHROMIC SLIGHT; LARGE PLATELETS PRESENT; LYMPHOCYTE 9 % (20-50); MONOCYTE 8 % (0-10); MYELOCYTE 1 % (0-0); NEUTROPHIL 80 % (42-75); PLATELET ESTIMATE INCREASED (NORMAL); TOTAL CELLS COUNTED 100
[2017-06-26 13:50] LABS: OVALOCYTES SLIGHT; TEARDROP CELLS SLIGHT
[2017-06-26] MEDS ORDERED: Lidocaine 2% Jelly (Uro-Jet) TOP SCH (21:00)
[2017-06-27] MEDS: Lidocaine 2% Jelly (5 ml) TOP SCH ×3 (01:52→21:37)
[2017-06-27] MEDS: Aztreonam 1 GM in Sodium Chloride 0.9% 100 ML IVPB SCH ×3 (01:53→17:59)
--- NOTE | 2017-06-27 04:55 | HP ---
HISTORY OF PRESENT ILLNESS: This is an 81-year-old female with history of multiple medical problems, who was brought by family for a change of mental status and decreased oral intake that was noticed over the last 24 hours. The patient was evaluated in the emergency room. She was found to be lethargic with inability to answer questions properly. The patient was evaluated in the emergency room, and she was found to have new right apical opacity with moderate right pleural effusion. The patient was started on IV antibiotics and BiPAP, and admitted for further management. The patient is lethargic at the time of this examination and no history is obtainable from the patient. ALLERGIES: THE PATIENT HAS ALLERGY TO PENICILLIN. MEDICATIONS: As per MAR. PAST MEDICAL HISTORY: 1. Paroxysmal atrial fibrillation, did not tolerate anticoagulation before. 2. Hypertension. 3. Coronary artery disease. 4. COPD. SOCIAL HISTORY Ex-smoker. No EtOH or substance abuse. FAMILY HISTORY Noncontributory. PHYSICAL EXAMINATION: GENERAL: The patient is again lethargic and she is on BiPAP, but responds to verbal stimuli. She could recognize me at the bedside. VITAL SIGNS: Blood pressure is 107/72, temperature 97.5, respiratory rate 20, and pulse 67. HEENT: Pupils equal, reactive to light. Normal-appearing mucosa of the conjunctivae, oropharynx and nasal membrane mucosa. NECK: Supple. No JVD. No carotid bruit. No lymph node. No thyromegaly. CHEST/LUNGS: Bilateral symmetrical expansion. Good air exchange. No rales, no rhonchi. CARDIOVASCULAR SYSTEM: PMI not localized. S1, S2. No additional sounds. ABDOMEN: Normoactive bowel sounds. No tenderness. No organomegaly. No masses. EXTREMITIES: No cyanosis, no clubbing, no edema. [employer]: Lethargic and moves all extremities equally. ASSESSMENT: Sepsis, pneumonia, chronic obstructive pulmonary disease, coronary artery disease, status post percutaneous coronary intervention. PLAN: Continue current IV antibiotics started, continue BiPAP. Discussed the patient's condition with the son who is also the power of technical sourcing recruiter. Kiara Willingham MD
--- NOTE | 2017-06-27 08:27 | CARD ---
APPROVED REPORT EKG Measurement Heart [id number] <Conclusion> Atrial fibrillation with a competing junctional pacemaker Nonspecific ST abnormality Abnormal ECG
--- NOTE | 2017-06-27 08:35 | PQF GENQUE ---
This form is a permanent part of the medical record 06/27/17 Dr. Willingham, Please specify type of pneumonia or suspected type of pneumonia in the progress notes after workup. Note: CAP, HAP, and HCAP indicate where the pneumonia was acquired, not a specific type. Note: Probable and suspected conditions can be coded as if they exist if still documented at the time of discharge. Aspiration Pneumonia Bacterial (specify organism) Bronchopneumonia (specify organism) Interstitual pneumonia Pneumonia with influenza, di flu, or H1N1 flu Viral pneumonia Other pneumonia (specify organism or type) Clinically unable to determine Unknown Admitted for change of mental status and decreased oral intake over the last 24 hours. CXR: New right apical opacity with moderate R pleural effusion. Started on Vancomycin and Azactam, Bipap Clarification of your documentation is requested to better reflect the severity of illness and intensity of treatment of your patient. Indicators present [] Specify: [] [] Specify: [] [] Specify: [] [] Specify: [] Location in the medical record that reflects the above clinical findings: [] Treatment Provided: [] PHYSICIAN'S RESPONSE Based on your medical judgment of the clinical indicators outlined above please clarify the following: [] Practitioner response [] If unable to determine, please check the box, sign and date. Present On Admission (POA) Indicator: [] Present at the time of admission [] Not present at the time of admission [] Clinically Undetermined In responding to this query, please exercise your independent professional judgment. The fact that a question is asked does not imply that any particular answer is desired or expected. Thank you for your clarification on this documentation. If you have any questions please call:extension [phone] * Thank you, Priscilla West RN CDM [facility]
--- NOTE | 2017-06-27 08:48 | PQF GENQUE ---
This form is a permanent part of the medical record 06/27/17 Dr Willingham, Would you please clarify if there is an associated diagnosis or not to go along with the followings and use of Bipap. Admitted with AMS and diagnosed with Pneumonia. Respiratory rate: 18, 30, 45, 45 , 22, 45, 20. O2 saturation: 100%, 81%, 100%, 77%, 100%, 98%. Treated with Bipap. Clarification of your documentation is requested to better reflect the severity of illness and intensity of treatment of your patient. Indicators present [] Specify: [] [] Specify: [] [] Specify: [] [] Specify: [] Location in the medical record that reflects the above clinical findings: [] Treatment Provided: [] PHYSICIAN'S RESPONSE Based on your medical judgment of the clinical indicators outlined above please clarify the following: [] Practitioner response [] If unable to determine, please check the box, sign and date. Present On Admission (POA) Indicator: [] Present at the time of admission [] Not present at the time of admission [] Clinically Undetermined In responding to this query, please exercise your independent professional judgment. The fact that a question is asked does not imply that any particular answer is desired or expected. Thank you for your clarification on this documentation. If you have any questions please call:extension [phone] * Thank you, Priscilla West RN CD[facility]
--- NOTE | 2017-06-27 08:58 | PQF GENQUE ---
This form is a permanent part of the medical record 06/27/17 Dr. Willingham, Would you please clarify if there is an associated diagnosis or not to go along with the following BMI? If yes please document the associated diagnosis as well as the BMI results. Admitted with Change of mental status and decreased oral intake over the last 24 hours. Initial Code Stroke in the ER and failed swallow evaluation. EMR has the patient listed as 5' 6", weighing 105 pounds with a BMI of 16.9. Clarification of your documentation is requested to better reflect the severity of illness and intensity of treatment of your patient. Indicators present [] Specify: [] [] Specify: [] [] Specify: [] [] Specify: [] Location in the medical record that reflects the above clinical findings: [] Treatment Provided: [] PHYSICIAN'S RESPONSE Based on your medical judgment of the clinical indicators outlined above please clarify the following: [] Practitioner response [] If unable to determine, please check the box, sign and date. Present On Admission (POA) Indicator: [] Present at the time of admission [] Not present at the time of admission [] Clinically Undetermined In responding to this query, please exercise your independent professional judgment. The fact that a question is asked does not imply that any particular answer is desired or expected. Thank you for your clarification on this documentation. If you have any questions please call:[phone] * Thank you, Priscilla West RN CDMP [facility]
[2017-06-27] MEDS: Menthol/Methyl Salicylate Oinment TOP SCH (10:55)
[2017-06-27] MEDS: diltiaZEM 120 mg/24 Hours CD Cap PO SCH (10:57)
[2017-06-27] MEDS: Digoxin 125 mcg (0.125 mg) Tab PO SCH (10:58)
[2017-06-27] MEDS: Multivitamin With Minerals Tab PO SCH (11:00)
[2017-06-27] MEDS: carBAMazepine Chew Tab 100 MG Chew Tab PO SCH ×2 (11:00→18:00)
[2017-06-27] MEDS: Pantoprazole 40 mg EC Tab PO SCH (11:00)
[2017-06-27 11:46] LABS: HEMOGLOBIN 13.8 g/dL (12.0-16.0); MEAN CORPUSCULAR HEMOGLOBIN 29.6 pg (27.0-31.0); MEAN CORPUSCULAR HGB CONC 31.9 g/dL (33.0-37.0); RBC 4.67 Mil/uL (3.80-5.20); RED CELL DISTRIBUTION WIDTH 16.3 % (11.5-14.5); WHITE BLOOD COUNT 29.8 K/uL (4.8-10.8)
[2017-06-27 12:02] LABS: ALBUMIN 3.6 g/dL (3.5-5.0); ALT/SGPT 95 U/L (9-52); AST/SGOT 52 U/L (14-36); BLOOD UREA NITROGEN 32 mg/dl (7-17); CALCIUM 9.6 mg/dL (8.4-10.2); GFR AFRICAN-AMERICAN > 60; GFR NON-AFRICAN AMERICAN > 60
[2017-06-27] MEDS ORDERED: Sodium Chloride 3% for Inhalation 4 ML VIAL.NEB IH PRN (13:41)
--- NOTE | 2017-06-27 13:41 | CP.PCM.CON ---
History of Present Illness - History of Present Illness History of Present Illness: PNEUMONIA IN AN 81 YO FEMALE WITH FAILING HEALTH AND NEW INFILTRATES ON CXR HAS HX ALLERGY TO PCN ON VANCO/ AZACTAM CULTURES PENDING PMH: Anxiety, Asthma, Atrial Fibrillation, CAD, CHF, COPD, Dementia, Depression , Emphysema, HTN, Pneumonia Denies: HIV, Chronic Kidney Disease Review of Systems - Review of Systems Systems not reviewed;Unavailable: Acuity of Condition, Altered Mental Status - Constitutional Constitutional: As Per HPI - EENT Eyes: absent: As Per HPI, Blind Spots, Blurred Vision, Change in Vision, Decreased Night Vision, Diplopia, Discharge, Dry Eye, Exophthalmos, Floaters, Irritation, Itchy Eyes, Loss of Peripheral Vision, Pain, Photophobia, Requires Corrective Lenses, Sees Flashes, Spots in Vision, Tunnel Vision, Other Visual Disturbances, Loss of Vision, Other Ears: absent: As Per HPI, Decreased Hearing, Ear Discharge, Ear Pain, Tinnitus, Abnormal Hearing, Disequilibrium, Dizziness, Other Nose/Mouth/Throat: absent: As Per HPI, Epistaxis, Nasal Congestion, Nasal Discharge, Nasal Obstruction, Nasal Trauma, Nose Pain, Post Nasal Drip, Sinus Pain, Sinus Pressure, Bleeding Gums, Change in Voice, Dental Pain, Dry Mouth, Dysphagia, Halitosis, Hoarsness, Lip Swelling, Mouth Lesions, Mouth Pain, Odynophagia, Sore Throat, Throat Swelling, Tongue Swelling, Facial Pain, Neck Pain, Neck Mass, Other - Breasts Breasts: absent: As Per HPI, Change in Shape, Mass, Pain, Nipple Discharge, Nipple Inversion, Skin Changes, Swelling, Other - Cardiovascular Cardiovascular: absent: As Per HPI, Acrocyanosis, Chest Pain, Chest Pain at Rest , Chest Pain with Activity, Claudication, Diaphoresis, Dyspnea, Dyspnea on Exertion, Edema, Irregular Heart Rhythm, Pain Radiating to Arm/Neck/Jaw, Leg Edema, Leg Ulcers, Lightheadedness, Orthopnea, Palpitations, Paroxysmal Nocturnal Dyspnea, Pedal Edema, Radiating Pain, Rapid Heart Rate, Slow Heart Rate, Syncope, Other - Respiratory Respiratory: As Per HPI - Gastrointestinal Gastrointestinal: absent: As Per HPI, Abdominal Pain, Belching, Bloating, Change in Bowel Habits, Change in Stool Character, Coffee Ground Emesis, Constipation, Cramping, Diarrhea, Dyspepsia, Dysphagia, Early Satiety, Excessive Flatus, Fecal Incontinence, Heartburn, Hematemesis, Hematochezia, Loose Stools, Melena, Nausea, Odynophagia, Temesmus, Vomiting, Other - Genitourinary Genitourinary: absent: As Per HPI, Change in Urinary Stream, Difficulty Urinating, Dysuria, Flank Pain, Hematuria, Pyuria, Nocturia, Urinary Incontinence, Urinary Frequency, Urinary Hesitance, Urinary Urgency, Voiding Freq/Small Amts, Freq UTI, Hx Renal/Bladder Calculi, Hx /Renal Surgery, Bladder Distension, Other - Reproductive: Female Reproductive:Female: absent: As Per HPI, Amenorrhea, Amenorrhea/ Control, Currently Menstual, Cycle <21 Days, Cycle >35 Days, Cycle Variable, Menses 1-7 Days, Menses >/= 8 Days, Menses Variable, Cycle > 4 Weeks Between, No Menses for 6 Months, Heavy Menses, Light Menses, Normal Menses, Spotting Between Cycles , S/P Hysterectomy, Menopausal, Post Menopausal, Premenarche, Abnormal Vaginal Bleeding, Dysmenorrhea, Dyspareunia, Genital Lesions, Genital Pruritis, Pelvic Pain, Prolapse Symptoms, Sexual Dysfunction, Vaginal Discharge, Vaginal Dryness , Vaginal Odor, Vaginal Pruritis, Other - Menstruation Menstruation: absent: As Per HPI, Amenorrhea, Amenorrhea/ Control, Currently Menstual, Cycle <21 Days, Cycle >35 Days, Cycle Variable, Menses 1-7 Days, Menses >/= 8 Days, Menses Variable, Cycle > 4 Weeks Between, No Menses for 6 Months, Heavy Menses, Light Menses, Normal Menses, Spotting Between Cycles , S/P Hysterectomy, Menopausal, Post Menopausal, Premenarche, Abnormal Vaginal Bleeding, Dysmenorrhea, Other - Musculoskeletal Musculoskeletal: absent: As Per HPI, Abnormal Gait, Arthralgias, Atrophy, Back Pain, Deformity, Joint Swelling, Limited Range of Motion, Loss of Height, Muscle Cramps, Muscle Weakness, Myalgias, Neck Pain, Numbness, Radiating Pain into Limb, Stiffness, Tingling, Other - Integumentary Integumentary: absent: As Per HPI, Acne, Alopecia, Bleeding Lesions, Change in Hair, Change in Nails, Change in Pigmentation, Changing Lesions, Dry Skin, Erythema, Furuncle, Hirsutism, Lesions, New Lesions, Non-Healing Lesions, Photosensitivity, Pruritus, Rash, Skin Pain, Skin Ulcer, Sores, Striae, Swelling , Unusual Bruising, Wounds, Jaundice, Other - Neurological Neurological: absent: As Per HPI, Abnormal Gait, Abnormal Hearing, Abnormal Movements, Abnormal Speech, Behavioral Changes, Burning Sensations, Confusion, Convulsions, Disequilibrium, Dizziness, Numbness, Focal Weakness, Frequent Falls , Headaches, Lack of Coordination, Loss of Vision, Memory Loss, Paresthesias, Radicular Pain, Restless Legs, Sensory Deficit, Syncope, Tingling, Tremor, Vertigo, Weakness, Other Visual Disturbances, Other - Psychiatric Psychiatric: absent: As Per HPI, Abnormal Sleep Pattern, Anhedonia, Anxiety, Auditory Hallucinations, Behavioral Changes, Change in Appetite, Change in Libido, Confusion, Depression, Difficulty Concentrating, Hallucinations, Homicidal Ideation, Hopelessness, Irritability, Memory Loss, Mood Swings, Panic Attacks, Paranoia, Suicidal Ideation, Visual Hallucinations, Tactile Hallucinations, Other - Endocrine Endocrine: absent: As Per HPI, Change in Body Appearance, Change in Libido, Cold Intolorance, Deepening of Voice, Excessive Sweating, Fatigue, Flushing, Heat Intolorance, Increase in Ring/Shoe/Hat Size, Palpitations, Polydipsia, Polyphagia, Polyuria, Other - Hematologic/Lymphatic Hematologic: absent: As Per HPI, Easy Bleeding, Easy Bruising, Lymphadenopathy, Other Past Patient History - Infectious Disease Hx of Infectious Diseases: None - Past Medical History & Family History Past Medical History?: Yes - Past Social History Smoking Status: Never Smoked - CARDIAC Hx Cardiac Disorders: Yes (afib, chf) Hx Atrial Fibrillation: Yes Hx Congestive Heart Failure: Yes - PULMONARY Hx Respiratory Disorders: Yes (copd, emphysema) Hx Chronic Obstructive Pulmonary Disease (COPD): Yes Hx Emphysema: Yes - NEUROLOGICAL Hx Neurological Disorder: Yes (dementia) Hx Dementia: Yes - HEENT Hx HEENT Problems: Yes Other/Comment: uses eye glasses, 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 - RENAL Hx Chronic Kidney Disease: No - ENDOCRINE/METABOLIC Hx Endocrine Disorders: No - HEMATOLOGICAL/ONCOLOGICAL Hx Blood Disorders: No - INTEGUMENTARY Hx Dermatological Problems: Yes (shingles) - MUSCULOSKELETAL/RHEUMATOLOGICAL Hx Musculoskeletal Disorders: Yes Hx Falls: Yes - GASTROINTESTINAL Hx Gastrointestinal Disorders: No - GENITOURINARY/GYNECOLOGICAL Hx Genitourinary Disorders: No - PSYCHIATRIC Hx Psychophysiologic Disorder: Yes (anxiety, depression) Hx Anxiety: Yes Hx Substance Use: No - SURGICAL HISTORY Hx Surgeries: Yes Hx Hysterectomy: Yes - ANESTHESIA Hx Anesthesia: Yes Hx Anesthesia Reactions: No Hx Malignant Hyperthermia: No Meds Allergies/Adverse Reactions: Allergies Allergy/AdvReac Type Severity Reaction Status Date / Time Penicillins Allergy WHEEZING Verified 04/08/17 06:45 - Medications Medications: Current Medications Alprazolam (Xanax) 0.25 mg PO HS [facility] Stop: 07/03/17 22:01 Last Admin: 06/26/17 21:52 Dose: 0.25 mg Aspirin (Ecotrin) 81 mg PO DAILY [facility] Last Admin: 06/27/17 10:58 Dose: 81 mg Atorvastatin Calcium (Lipitor) 10 mg PO DAILY [facility] Last Admin: 06/27/17 10:59 Dose: 10 mg Bisoprolol Fumarate (Zebeta) 2.5 mg PO DAILY [facility] Last Admin: 06/27/17 11:01 Dose: 2.5 mg Camphor/Menthol (Bengay) 1 applic TOP DAILY [facility] Last Admin: 06/27/17 10:55 Dose: 1 u Carbamazepine (Tegretol) 100 mg PO BID [facility] Last Admin: 06/27/17 11:00 Dose: 100 mg Carbamazepine (Tegretol) 200 mg PO HS [facility] Last Admin: 06/26/17 21:52 Dose: 200 mg Digoxin (Lanoxin) 0.125 mg PO DAILY [facility] Last Admin: 06/27/17 10:58 Dose: 0.125 mg Diltiazem HCl (Cardizem Cd) 120 mg PO DAILY [facility] Last Admin: 06/27/17 10:57 Dose: 120 mg Furosemide (Lasix) 20 mg IVP DAILY [facility] Last Admin: 06/27/17 13:17 Dose: 20 mg Gabapentin (Neurontin) 100 mg PO TID [facility] Last Admin: 06/27/17 10:59 Dose: 100 mg Heparin Sodium (Porcine) (Heparin) 5,000 units SC Q12 [facility]ANDY PRN Reason: Protocol Last Admin: 06/27/17 13:18 Dose: 5,000 units Aztreonam 1 gm/ Sodium (Chloride) 100 mls @ 100 mls/hr IVPB Q8 CANDY PRN Reason: Protocol Last Admin: 06/27/17 10:55 Dose: 100 mls/hr Vancomycin HCl 750 gm/ Sodium (Chloride) 250 mls @ 166.667 mls/hr IVPB Q12@0000 ,1200 [facility] PRN Reason: Protocol Last Admin: 06/27/17 11:01 Dose: 166.667 mls/hr Lidocaine HCl (Lidocaine Hydrochloride Jelly 2% 5 Ml) 1 ml TOP Q12 [facility] Last Admin: 06/27/17 10:59 Dose: 1 ml Multivitamins/Minerals (Therapeutic-M Tab) 1 tab PO DAILY [facility] Last Admin: 06/27/17 11:00 Dose: 1 tab Nortriptyline HCl (Pamelor) 25 mg PO DAILY [facility] Last Admin: 06/27/17 11:00 Dose: 25 mg Pantoprazole Sodium (Protonix Ec Tab) 40 mg PO DAILY [facility] Last Admin: 06/27/17 11:00 Dose: 40 mg Thiamine HCl (Vitamin B1 Tab) 100 mg PO DAILY [facility] Last Admin: 06/27/17 11:01 Dose: 100 mg Physical Exam - Constitutional Appears: Confused, Chronically Ill - Head Exam Head Exam: NORMOCEPHALIC - Eye Exam Eye Exam: PERRL. absent: Scleral icterus - ENT Exam ENT Exam: Mucous Membranes Dry - Neck Exam Neck exam: Negative for: Lymphadenopathy - Respiratory Exam Respiratory Exam: Decreased Breath Sounds, Rhonchi - Cardiovascular Exam Cardiovascular Exam: REGULAR RHYTHM, +S1, +S2 - GI/Abdominal Exam GI & Abdominal Exam: Diminished Bowel Sounds - Rectal Exam Rectal Exam: Deferred - Exam Exam: NORMAL INSPECTION - Extremities Exam Extremities exam: Negative for: pedal edema - Back Exam Back exam: absent: CVA tenderness (L), CVA tenderness (R) - Neurological Exam Neurological exam: Altered - Psychiatric Exam Psychiatric exam: Depressed - Skin Skin Exam: Dry Results - Vital Signs Recent Vital Signs: Last Vital Signs Temp 98.7 F 06/27/17 08:39 Pulse 125 H 06/27/17 10:57 Resp 20 06/27/17 00:03 BP 169/93 H 06/27/17 13:17 Pulse Ox 91 L 06/27/17 08:39 - Labs Result Diagrams: 06/28/17 07:00 06/28/17 07:00 Labs: Laboratory Results - last 24 hr 06/26/17 06/26/17 06/26/17 12:24 14:33 16:44 WBC RBC Hgb Hct MCV MCH MCHC RDW Plt Count Neutrophils % (Manual) 80 H Band Neutrophils % 1 Lymphocytes % (Manual) 9 L Monocytes % (Manual) 8 Eosinophils % (Manual) 1 Myelocytes % 1 H Platelet Estimate Increased H Large Platelets Present Giant Platelets Present Hypochromasia (manual) Slight Anisocytosis (manual) Slight Tear Drop Cells Slight Ovalocytes Slight APTT 28.7 D Sodium Potassium Chloride Carbon Dioxide Anion Gap BUN Creatinine Est GFR ( Amer) Est GFR (Non-Af Amer) Random Glucose Hemoglobin A1c 6.0 Calcium Total Bilirubin AST ALT Alkaline Phosphatase Total Protein Albumin Globulin Albumin/Globulin Ratio 06/27/17 06/27/17 11:02 11:02 WBC 29.8 H RBC 4.67 Hgb 13.8 D Hct 43.4 MCV 93.0 MCH 29.6 MCHC 31.9 L RDW 16.3 H Plt Count 654 H D Neutrophils % (Manual) Band Neutrophils % Lymphocytes % (Manual) Monocytes % (Manual) Eosinophils % (Manual) Myelocytes % Platelet Estimate Large Platelets Giant Platelets Hypochromasia (manual) Anisocytosis (manual) Tear Drop Cells Ovalocytes APTT Sodium 151 H Potassium 4.5 Chloride 105 Carbon Dioxide 38 H Anion Gap 13 BUN 32 H Creatinine 0.7 Est GFR ( Amer) > 60 Est GFR (Non-Af Amer) > 60 Random Glucose 116 H Hemoglobin A1c Calcium 9.6 Total Bilirubin 1.1 AST 52 H D ALT 95 H D Alkaline Phosphatase 256 H Total Protein 7.4 Albumin 3.6 Globulin 3.8 Albumin/Globulin Ratio 1.0 Assessment & Plan (1) Altered mental status Status: Acute (2) Pleural effusion Status: Acute (3) Pneumonia Status: Acute (4) CHF (congestive heart failure) Status: Acute - Assessment and Plan (Free Text) Assessment: iv antibiotics ordered will follow cultures
--- NOTE | 2017-06-27 18:52 | RAD ---
PROCEDURE: Left Wrist Radiographs. HISTORY: F/U with prior X-ray done 2 weeks ago COMPARISON: None. FINDINGS: BONES: Callus formation at the site of previously identified distal radial fracture. JOINTS: Osteoarthritic changes are stable SOFT TISSUES: Normal. OTHER FINDINGS: None. IMPRESSION: Healing fracture distal left radius. Major fracture fragments are anatomically aligned.
--- NOTE | 2017-06-28 00:20 | PN ---
DATE: 06/27/2017 SUBJECTIVE: The patient is seen today, 06/27/2017. She is still on BiPAP and oxygen saturation is 94%. The patient is mildly lethargic. PHYSICAL EXAMINATION: VITAL SIGNS: Blood pressure 130/81, temperature 98.3, respiratory rate 20, and pulse 100. HEENT: Pupils equal, reactive to light. Normal-appearing mucosa of the conjunctivae. NECK: Supple. No JVD. No carotid bruit. No lymph node. No thyromegaly. CHEST AND LUNGS: Bilateral symmetrical expansion. Good air exchange and there are basal rales bilaterally. CARDIOVASCULAR SYSTEM: PMI not localized. S1, S2. No additional sounds. ABDOMEN: Normoactive bowel sounds. No tenderness. No organomegaly. No masses. EXTREMITIES: No cyanosis. No clubbing. No edema. CENTRAL NERVOUS SYSTEM: Alert, awake, oriented x1, and no neurological difficulty appreciated. ASSESSMENT: Sepsis, pneumonia, history of atrial fibrillation, hypertension, and chronic obstructive pulmonary disease. PLAN: Continue current IV antibiotics and we will decrease the Neurontin and the Tegretol as patient is mildly lethargic. Discussed the patient's condition with son, who has also the power of civil attorney and would like to evaluate for hospice. Kiara Willingham MD
[2017-06-28] MEDS: Aztreonam 1 GM in Sodium Chloride 0.9% 100 ML IVPB SCH ×2 (01:14→08:31)
[2017-06-28 07:59] LABS: MEAN CELL VOLUME 91.3 fl (81.0-99.0); MEAN CORPUSCULAR HEMOGLOBIN 28.9 pg (27.0-31.0); MEAN CORPUSCULAR HGB CONC 31.7 g/dL (33.0-37.0); RBC 4.15 Mil/uL (3.80-5.20); RED CELL DISTRIBUTION WIDTH 15.8 % (11.5-14.5); WHITE BLOOD COUNT 25.5 K/uL (4.8-10.8)
[2017-06-28] MEDS: diltiaZEM 120 mg/24 Hours CD Cap PO SCH (08:28)
[2017-06-28 08:29] LABS: BLOOD UREA NITROGEN 36 mg/dl (7-17); GFR AFRICAN-AMERICAN > 60; GFR NON-AFRICAN AMERICAN > 60
[2017-06-28] MEDS: Pantoprazole 40 mg EC Tab PO SCH (08:29)
[2017-06-28] MEDS: Multivitamin With Minerals Tab PO SCH (08:30)
[2017-06-28 08:34] LABS: CALCIUM 9.6 mg/dL (8.4-10.2)
[2017-06-28] MEDS: Digoxin 125 mcg (0.125 mg) Tab PO SCH (10:07)
[2017-06-28] MEDS: Menthol/Methyl Salicylate Oinment TOP SCH ×2 (10:07→10:10)
[2017-06-28 10:10] VITALS: PULSE 101
[2017-06-28] MEDS: Lidocaine 2% Jelly (5 ml) TOP SCH (10:10)
--- NOTE | 2017-06-28 13:26 | CP.PCM.PN ---
Subjective - Date & Time of Evaluation Date of Evaluation: 06/28/17 Time of Evaluation: 09:00 - Subjective Subjective: [place] WEAK CULTURES + KLEBS IN URINE CONT RX PER DR OWUSU Objective - Vital Signs/Intake and Output Vital Signs (last 24 hours): Temp Pulse Resp BP Pulse Ox 97.8 F 120 H 20 158/101 H 90 L 06/28/17 07:22 06/28/17 10:51 06/28/17 07:22 06/28/17 08:29 06/28/17 07:22 Intake and Output: 06/28/17 06/28/17 06:59 18:59 Intake Total 450 Output Total 300 Balance 150 - Medications Medications: Current Medications Alprazolam (Xanax) 0.25 mg PO [facility] Stop: 07/03/17 22:01 Last Admin: 06/27/17 21:35 Dose: 0.25 mg Aspirin (Ecotrin) 81 mg PO DAILY [facility] Last Admin: 06/28/17 08:28 Dose: 81 mg Atorvastatin Calcium (Lipitor) 10 mg PO DAILY [facility] Last Admin: 06/28/17 08:29 Dose: 10 mg Bisoprolol Fumarate (Zebeta) 2.5 mg PO DAILY [facility] Last Admin: 06/28/17 08:30 Dose: 2.5 mg Camphor/Menthol (Bengay) 1 applic TOP DAILY [facility] Last Admin: 06/28/17 10:10 Dose: Not Given Digoxin (Lanoxin) 0.125 mg PO DAILY [facility] Last Admin: 06/28/17 10:07 Dose: 0.125 mg Diltiazem HCl (Cardizem Cd) 120 mg PO DAILY [facility] Last Admin: 06/28/17 08:28 Dose: 120 mg Furosemide (Lasix) 20 mg IVP DAILY [facility] Last Admin: 06/28/17 08:29 Dose: 20 mg Heparin Sodium (Porcine) (Heparin) 5,000 units SC Q12 [facility] PRN Reason: Protocol Last Admin: 06/28/17 08:28 Dose: 5,000 units Aztreonam 1 gm/ Sodium (Chloride) 100 mls @ 100 mls/hr IVPB Q8 [facility] PRN Reason: Protocol Last Admin: 06/28/17 08:31 Dose: 100 mls/hr Vancomycin HCl 750 gm/ Sodium (Chloride) 250 mls @ 166.667 mls/hr IVPB Q12@0000 ,1200 [facility] PRN Reason: Protocol Last Admin: 06/27/17 23:22 Dose: 166.667 mls/hr Lidocaine HCl (Xylocaine 2%) 1 applic TOP Q12 [facility] Multivitamins/Minerals (Therapeutic-M Tab) 1 tab PO DAILY [facility] Last Admin: 06/28/17 08:30 Dose: 1 tab Nortriptyline HCl (Pamelor) 25 mg PO DAILY [facility] Last Admin: 06/28/17 08:29 Dose: 25 mg Pantoprazole Sodium (Protonix Ec Tab) 40 mg PO DAILY [facility] Last Admin: 06/28/17 08:29 Dose: 40 mg Thiamine HCl (Vitamin B1 Tab) 100 mg PO DAILY [facility] Last Admin: 06/28/17 08:30 Dose: 100 mg - Labs Labs: 06/28/17 07:00 06/28/17 07:00 PT 12.6 Seconds (9.8-13.1) 06/26/17 12:24 INR 1.1 (0.9-1.2) 06/26/17 12:24 APTT 28.7 Seconds (25.6-37.1) D 06/26/17 16:44 - Constitutional Appears: Cachectic, Chronically Ill - Head Exam Head Exam: NORMOCEPHALIC - Eye Exam Eye Exam: absent: Scleral icterus - ENT Exam ENT Exam: Mucous Membranes Dry - Neck Exam Neck Exam: absent: Lymphadenopathy - Respiratory Exam Respiratory Exam: Decreased Breath Sounds - Cardiovascular Exam Cardiovascular Exam: REGULAR RHYTHM - GI/Abdominal Exam GI & Abdominal Exam: Distended, Soft - Rectal Exam Rectal Exam: Deferred Assessment and Plan (1) Altered mental status Status: Acute (2) Pleural effusion Status: Acute (3) Pneumonia Status: Acute (4) CHF (congestive heart failure) Status: Acute (5) UTI (urinary tract infection) Status: Acute (6) UTI (urinary tract infection) Status: Acute
[2017-06-28 15:03] LABS: SQUAMOUS EPITHIAL 1 /hpf (0-5); URINE BACTERIA RARE (<OCC); URINE BILIRUBIN NEGATIVE (NEGATIVE); URINE BLOOD NEGATIVE (NEGATIVE); URINE CLARITY CLOUDY (Clear); URINE COLOR YELLOW (YELLOW); URINE GLUCOSE (UA) NEG (Normal); URINE LEUKOCYTE ESTERASE TRACE Leu/uL (Negative); URINE NITRATE NEGATIVE (NEGATIVE); URINE PROTEIN NEGATIVE (NEGATIVE); URINE UROBILINOGEN 0.2-1.0 mg/dL (0.2-1.0)
[2017-06-28 15:48] VITALS: BP 137/83; PULSE 92; RESP 21; TEMP 98.4; O2SAT 91
[2017-06-28] MEDS ORDERED: Lidocaine 2% GEL TOP SCH (21:00)
--- NOTE | 2017-07-01 05:23 | DS ---
HISTORY OF PRESENT ILLNESS: This is an 81-year-old female who was admitted for sepsis secondary to pneumonia. COURSE OF HOSPITALIZATION: Patient was admitted to a medical floor and she was started on BiPAP, IV antibiotics, and IV fluids. Patient's respiratory status was not improving and patient was lethargic throughout the admission. As per son's request, who is also the power of corporate associate attorney, patient was made DNR and DNI. Hospice care was requested, and patient was discharged from acute care to hospice care due to no response to the IV antibiotic therapy and no improvement of the general condition in addition to the poor functional status lately. FINAL DIAGNOSES: Sepsis, pneumonia, coronary artery disease, osteoarthritis, hypertension. [facility] MD Maulik
== END 2017-06-28 15:52 | disposition hospice, inpatient (51) | DRG 871 ==
LOC: H.ER 11:14 → H.ERHOLD 12:55 → H.MEDSURG1 14:59
PROVIDERS: ADMIT Internal Medicine; ATTEND Internal Medicine
PROC: 5A09357 Assistance with Respiratory Ventilation, Less than 24 Consecutive Hours, Continuous Positive Airway Pressure (ICD-10-PCS; principal; 2017-06-26)
DX: A41.9 Sepsis, unspecified organism (principal); J18.9 Pneumonia, unspecified organism; I11.0 Hypertensive heart disease with heart failure; I50.9 Heart failure, unspecified; I48.0 Paroxysmal atrial fibrillation; F03.90 Unspecified dementia, unspecified severity, without behavioral disturbance, psychotic disturbance, mood disturbance, and anxiety; N39.0 Urinary tract infection, site not specified; I25.10 Atherosclerotic heart disease of native coronary artery without angina pectoris; B96.1 Klebsiella pneumoniae [K. pneumoniae] as the cause of diseases classified elsewhere; J44.9 Chronic obstructive pulmonary disease, unspecified; F41.9 Anxiety disorder, unspecified; Y95 Nosocomial condition; M19.90 Unspecified osteoarthritis, unspecified site; Z66 Do not resuscitate; Z74.01 Bed confinement status; Z87.891 Personal history of nicotine dependence; Z98.61 Coronary angioplasty status; Z88.0 Allergy status to penicillin; H91.90 Unspecified hearing loss, unspecified ear; Z90.710 Acquired absence of both cervix and uterus

== ENCOUNTER 2017-06-28 15:48 | Inpatient (IN) | payer OTHER ==
[2017-06-28 10:10] VITALS: PULSE 101
[2017-06-28 15:53] VITALS: BMI 16.6
[2017-06-28 16:13] VITALS: BP 137/87; TEMP 98.4; O2SAT 91
[2017-06-28 17:07] VITALS: PULSE 110; RESP 30
--- NOTE | 2017-06-28 21:27 | CP.PCM.PRO ---
Pronouncement of Note - Clinical Findings Physical Exam: No Response Verbal/Painful Stimuli, Absent Peripheral Pulses{ Carotid & Femoral}, Absent Heart & Breath Sounds, No Pupillary Light Reflex, No Corneal Reflex, Pupils Fixed & Dilated, Absence of Vital Signs - Pronouncement Time Time of Pronouncement of : 21:05 - Notifications Pronouncement Notifications: Family Notified, Atending Notified Director Of Analytical Development Notified: No - Autopsy Autopsy Requested: No - [place] [id number] Additional Comments: This patient was DNR on Hospice management.
--- NOTE | 2017-07-01 02:29 | HP ---
HISTORY OF PRESENT ILLNESS: This is an 81-year-old female, who was admitted to hospice care after no response to conventional treatment for sepsis and pneumonia in addition to poor functional status lately. Patient was on IV antibiotics , both medications, Azactam and vancomycin IV antibiotics as well as the patient's multiple home medications as per MAR. PAST MEDICAL HISTORY: Hypertension, coronary artery disease, dementia, osteoarthritis. SOCIAL HISTORY: Ex-smoker. No EtOH or substance abuse. FAMILY HISTORY: Noncontributory. PHYSICAL EXAMINATION: GENERAL: The patient was lethargic. VITAL SIGNS: Blood pressure was 130/80, temperature 98.4, respiratory rate 30 and pulse 92. HEENT: Pupils equal, reactive to light. Normal appearing mucosa of the conjunctivae, oropharyngeal and nasal membrane mucosa. NECK: Supple. No JVD. No carotid bruit. No lymph node. No thyromegaly. CHEST AND LUNGS: Bilateral symmetrical expansion. Decreased air entry in both lower lung santana. CARDIOVASCULAR: PMI not localized. S1, S2. No additional sounds. ABDOMEN: Normoactive bowel sounds. No tenderness. No organomegaly. No masses. EXTREMITIES: No cyanosis, no clubbing, no edema. CENTRAL NERVOUS SYSTEM: Patient is lethargic and moves all extremities equally. ASSESSMENT: Sepsis/pneumonia, not responding to treatment with respiratory failure. PLAN: Palliative care and keep the patient comfortable, pain medicine as needed, and resume the patient's medications as tolerated. Kiara Willingham MD
--- NOTE | 2017-07-01 03:18 | DS ---
REASON FOR ADMISSION: This is an 81-year-old female with history of multiple medical problems, was recently admitted to the acute care for management of sepsis and pneumonia. HOSPITAL COURSE: Due to the patient's no response to the treatment of sepsis and poor functional status, the patient was admitted to hospice. The patient was kept comfortable and she lost pulse as well as blood pressure. The patient was on oxygen. Family was at the bedside and the patient was pronounced by hospitalist. FINAL DIAGNOSES: 1. Sepsis. 2. Cardiopulmonary failure. 3. Pneumonia. 4. Coronary artery disease. 5. Hypertension. 6. Osteoarthritis. 7. Dementia. [facility] MD Maulik
== END 2017-06-28 22:27 | DRG 871 ==
LOC: H.MEDSURG1 15:53
PROVIDERS: ADMIT Internal Medicine; ATTEND Internal Medicine
DX: A41.9 Sepsis, unspecified organism (principal); J18.9 Pneumonia, unspecified organism; I46.9 Cardiac arrest, cause unspecified; I10 Essential (primary) hypertension; F03.90 Unspecified dementia, unspecified severity, without behavioral disturbance, psychotic disturbance, mood disturbance, and anxiety; M19.90 Unspecified osteoarthritis, unspecified site; I25.10 Atherosclerotic heart disease of native coronary artery without angina pectoris; Z87.891 Personal history of nicotine dependence; Z51.5 Encounter for palliative care